=== PATIENT | female | born 1945 | race Caucasian/White ===

== ENCOUNTER 2016-09-24 16:20 | Emergency (ER) | payer MEDICARE, OTHER ==
[2015-12-25 14:05] VITALS: BMI 39.5
[~2016-09-24 16:20] MED LIST: ACETAMINOPHEN325 MG NG; ARICEPT5 MG PO; ASPIRIN 81 MG E81 MG PO; BACTRIM DS TABL1 TAB PO; CELEXA20 MG PO; DEPAKOTE ER250 MG; DITROPAN X10 MG/BOTT PO; DULCOLAX10 MG/SUPP RC; GLUCAGEN1 MG/VIAL IM; GLUCAGEN1 MG/VIAL SC; GLUCOTROL XL 1010 MG PO; HUMALOG 30100 UNITS/ SC; LANTUS SOL100 UNIT/1; LASIX20 MG PO; LASIX40 MG PO; LOTENSIN20 MG PO; LOVENOX30 MG/0.3 SQ; METAMUCIL FIB1 WAFER PO; METAMUCIL PACKE1 PKT PO; MIRALAX17 GM PO; NORVASC10 MG PO; PLAVIX75 MG PO; PRAVACHOL40 MG PO; PREVPAC PA1 COMB.PKG PO; PRINIVIL10 MG PO; PROTONIX40 MG PO; SYNTHROID100 MCG PO
[2016-09-24 17:34] LABS: BASOPHILS 0.3 % (0.0-2.0); EOSINOPHILS 1.5 % (0-7); HEMATOCRIT 33.4 % (36.0-48.0); HEMOGLOBIN 10.4 g/dL (12-16); IMMATURE GRANULOCYTES 0.2 % (0-5); LYMPHOCYTES 41.3 % (15-50); MCH 29.4 pg (26.0-34.0); MCHC 31.1 g/dL (31.0-37.0); MCV 94.4 fL (80.0-100.0); MEAN PLATELET VOLUME 10.8 fL (7.4-10.4); MONOCYTES 8.7 % (2-11); PLATELET COUNT 230 10x3/uL (130-400); RBC 3.54 10x6/uL (4.00-5.40); WBC 10.3 10x3/uL (4.8-10.8)
[2016-09-24 18:00] LABS: ALBUMIN 3.6 g/dL (3.4-5.0); ANION GAP 17.9 mmol/L (8-16); BILIRUBIN - TOTAL 0.19 mg/dL (0.2-1.3); CALCIUM 8.8 mg/dL (8.5-10.1); CARBON DIOXIDE 24.7 mmol/L (21.0-32.0); CREATININE - SERUM 3.6 mg/dL (0.6-1.3); POTASSIUM - SERUM 3.6 mmol/L (3.5-5.1); PROTEIN - SERUM 8.2 g/dL (6.4-8.2)
== END 2016-09-24 19:06 | disposition left against medical advice (07) ==
LOC: D.ER 16:20
PROVIDERS: Emergency Medicine
DX: R60.0 Localized edema (principal)

== ENCOUNTER 2017-02-18 16:07 | Emergency (ER) | payer MEDICARE, OTHER ==
[2015-12-25 14:05] VITALS: BMI 39.5
[2017-02-18 17:05] LABS: BASOPHILS 0.2 % (0-2); EOSINOPHILS 2.1 % (0-7); HEMATOCRIT 34.9 % (36.0-48.0); HEMOGLOBIN 11.3 g/dL (12-16); IMMATURE GRANULOCYTES 0.4 % (0-5); LYMPHOCYTES 39.3 % (15-50); MCH 30.9 pg (26.0-34.0); MCHC 32.4 g/dL (31.0-37.0); MCV 95.4 fL (80.0-100.0); MEAN PLATELET VOLUME 10.7 fL (7.4-10.4); PLATELET COUNT 231 10x3/uL (130-400); RBC 3.66 10x6/uL (4.00-5.40); RDW 14.1 % (11.5-14.5); WBC 9.9 10x3/uL (4.8-10.8)
[2017-02-18 17:06] LABS: APPEARANCE CLEAR (CLEAR); BACTERIA FEW /hpf (NONE SEEN); BILIRUBIN NEGATIVE (NEGATIVE); COLOR STRAW (YELLOW); EPITHELIAL CELLS 0-5 /hpf (0-5); GLUCOSE 250 mg/dL (NEGATIVE); KETONE NEGATIVE (NEGATIVE); LEUKOCYTE ESTERASE NEGATIVE (NEGATIVE); NITRITE NEGATIVE (NEGATIVE); PROTEIN 2+ mg/dL (NEGATIVE); RED CELLS - URINE RARE /hpf (0-5); UROBILINOGEN NORMAL (NORMAL); WHITE CELLS - URINE 0-5 /hpf (0-5)
[2017-02-18 17:27] LABS: ALBUMIN 3.4 g/dL (3.4-5.0); ALKALINE PHOSPHATASE 97 U/L (46-116); ALT (SGPT) 17 U/L (10-68); BILIRUBIN - TOTAL 0.18 mg/dL (0.2-1.3); CALC OSMOLALITY 287 mosm/kg (275-300); CALCIUM 8.9 mg/dL (8.5-10.1); CARBON DIOXIDE 24.2 mmol/L (21.0-32.0); CHLORIDE - SERUM 103 mmol/L (98-107); CREATININE - SERUM 4.1 mg/dL (0.6-1.3); GLUCOSE 163 mg/dL (74-106); POTASSIUM - SERUM 3.7 mmol/L (3.5-5.1); SODIUM 137 mmol/L (136-145); UREA NITROGEN 40 mg/dL (7-18); eGFR NON AFRICAN AMERICAN 11 mL/min (90-120)
[2017-02-18 17:30] LABS: CREATINE KINASE 66 UL (21-215); PRO BNP 1980 pg/mL (0-125); TROPONIN-I < 0.017 ng/mL (0.000-0.060)
== END 2017-02-18 18:40 | disposition home or self-care (01) ==
LOC: D.ER 16:07
PROVIDERS: Emergency Medicine
DX: J06.9 Acute upper respiratory infection, unspecified (principal); R05 Cough; G30.9 Alzheimer's disease, unspecified; F02.80 Dementia in other diseases classified elsewhere, unspecified severity, without behavioral disturbance, psychotic disturbance, mood disturbance, and anxiety

== ENCOUNTER 2017-07-20 19:26 | Observation (INO) | payer MEDICARE, OTHER ==
[~2017-07-20] VITALS: Ht 157.5 cm; Wt 97.9 kg
--- NOTE | ~2017-07-20 | OP ---
PATIENT NAME: TYLER BAY MEDICAL RECORD: [id number] :45 LOCATION:D.M2 D.2117 ADMISSION DATE:07/20/17 SURGEON: JAMAAL AVENDAÑO MD DATE OF OPERATION: 07/22/2017 DATE OF SERVICE: 07/22/2017 PROCEDURES: 1. PTCA stent left circumflex. 2. Left heart catheterization. 3. Selective coronary angiography. 4. Left ventriculogram. INDICATION: Angina and coronary artery disease. PROCEDURE IN DETAIL: After informed consent was obtained and after detailed explanation of risks, benefits as well as alternative therapies, the patient elected to proceed with angiogram and angioplasty. The right femoral area was prepped and draped in normal sterile fashion. The right femoral artery was cannulated via modified Seldinger technique with placement of a 6-Turkmen sheath. All catheters exchanged through this sheath. FINDINGS: Left ventriculogram was not performed secondary to dye conservation. SELECTIVE CORONARY ANGIOGRAPHY: 1. Left main has previously placed stent that is widely patent. 2. Left anterior descending has previously placed stents, these are widely patent. There is no disease elsewise throughout the LAD or its branches. 3. Left circumflex has previously placed stent. There is 90% to 95% stenosis proximally. 4. The right coronary has mild irregularities to moderate irregularities, but no flow-limiting stenosis. PTCA STENT OF THE LEFT CIRCUMFLEX: The stent used was a 4.0 x 8 mm Hans. Result was 0% residual stenosis. OVERALL IMPRESSION: Successful percutaneous transluminal coronary angioplasty stent of the left circumflex going from 90+ percent initial stenosis to 0% residual. TRANSINT:[id number] Voice Confirmation ID: [id number] DOCUMENT ID: [id number] JAMAAL AVENDAÑO MD at 0919 CC: [id number] DICTATION DATE: 07/22/17 1243 CRYPTOLOGIC TECHNICIAN TECHNICAL: 07/22/17 1346 ADM IN [place] [id number] [place] [id number]
--- NOTE | ~2017-07-20 | HEMODYNAMI ---
PATIENT:TYLER BAY MEDICAL RECORD: [id number] : 45 [id number] ADMISSION DATE: 07/20/17 Generatedon:07/22/201712:42 Patient name: TYLER BAY Patient #: [id number] SSN: : 1945 Date of study: 07/22/2017 Page: Of Hemodynamic Procedure Report Patient Data Patient Demographics Procedure consent was obtained First Name: TYLER Gender: Female Last Name: PHU : 1945 [facility] Initial: DEVI Age: 72 year(s) Patient #: [id number] Race: Additional ID: [id number] Contact details [address]: [address] [place] [address] rd State: [place] City: [place] Zip code: [address] Past Medical History Allergies Allergen Reaction Date Comments Reported Other allergy 07/27/2014 Codeine, Morphine Other allergy 07/22/2017 codeine, morpine Admission Admission Data Admission Date: 07/20/2017 Admission Time: 21:00 Room #: D.2117 Procedure Procedure Types Cath Procedure Diagnostic Procedure LHC Coronaries only PCI Procedure Coronary Stent Coronary Stent Initial Miscellaneous Procedures Moderate Sedation up to 30 minutes Procedure Description Procedure Date Procedure Date: 07/22/2017 Procedure Start Time: 12:23 Procedure End Time: 12:40 Procedure Staff Name Function Kei Flowers MD Performing Physician Kayla Teran RT Monitor Tricia Collins RT Scrub Vanessa Saunders RN Nurse Procedure Data Cath Procedure Fluoroscopy Diagnostic fluoroscopy Total fluoroscopy Time: 4.2 time: 4.2 min min Diagnostic fluoroscopy Total fluoroscopy dose: 614 dose: 614 mGy mGy Contrast Material Contrast Material Type Amount (ml) Isovue 300 43 Entry Location Entry Primary Successful Side Size Upsize Upsize Entry Closure Succes sful Closure Location (Fr) 1 (Fr) 2 (Fr) Remarks Device Remarks Femoral Right 5 Fr 6 Fr Exoseal artery Short Estimated blood loss: 5 ml Diagnostic catheters Device Type Used For End Catheter Placement MULTIPACK JL 4.0 5Fr Left Coronary catheter Angiography MULTIPACK 3DRC 5Fr Right Coronary catheter Angiography Procedure Complications No complications Procedure Medications Medication Administration Route Dosage Oxygen NC 2 l/min Lidocaine 2% added to field 20 Heparin Flush Bag added to field 2 bags (1000units/500ml NS) 0.9% NaCl I.V. 100 ml/hr Versed I.V. 1 mg Fentanyl I.V. 50 mcg Heparin Bolus I.V. 4000 units Hemodynamics Rest Heart Rate: 91 (bpm) Snapshots Pre Cath Intra NCS Post Cath Vital Signs Time Heart Resp SPO2 etCO2 NIBP (mmHg) Rhythm Pain Sedation Rate (ipm) (%) (mmHg) Status Level (bpm) 12:13:38 91 16 98 41.1 187/87(129) NSR 0 (11) 10(A) , No pain 12:18:02 86 15 93 29.1 159/80(130) NSR 0 (11) 10(A) , No pain 12:22:30 86 16 94 40.4 149/81(123) NSR 0 (11) 9(A) , No pain 12:27:56 82 16 95 33.6 144/69(105) NSR 0 (11) 9(A) , No pain 12:32:20 85 16 94 0 152/73(127) NSR 0 (11) 9(A) , No pain 12:36:46 88 15 95 26.9 157/76(123) NSR 0 (11) 10(A) , No pain 12:41:17 88 16 96 33.6 154/74(116) NSR 0 (11) 10(A) , No pain Medications Time Medication Route Dose Verified Delivered Reason Notes Effectiveness by by 12:11:51 Oxygen NC 2 Kei Bravoie used for l/min Lionel Saunders RN procedure 12:11:59 Lidocaine 2% added 20ml Kei Choudhury for local to vial Lionel Flowers MD anesthetic field 12:12:05 Heparin Flush added 2 Kei Kei used for Bag to bags Lionel Flowers MD procedure (1000units/500ml field NS) 12:12:14 0.9% NaCl I.V. 100 Kei Buffie Per physician ml/hr Lionel Saunders RN 12:17:34 Versed I.V. 1 mg Kei Buffie for sedation Lionel Saunders RN 12:17:41 Fentanyl I.V. 50 Kei Mendez for sedation mcg Lionel Saunders RN 12:28:56 Heparin Bolus I.V. 4000 Kei Mendez for verifi ed units Lionel Saunders RN anticoagulation with dr flowers Procedure Log Time Note 11:30:42 Vanessa Saunders RN sent for patient. Start room use. 11:30:43 Time tracking: Regular hours 11:30:47 Plan of Care:Hemodynamics will remain stable., Cardiac rhythm will remain stable., Comfort level will be maintained., Respiratory function will remain adequate., Patient/ family verbilizes understanding of procedure., Procedure tolerated without complication., Recovers from procedure without complications.. 11:38:16 Patient received from Pre/Post Procedure Room to CCL 2 Alert and oriented. Tansferred to table in Supine position. 11:38:17 Warm blankets applied, and isabel hugger turned on for patient comfort. 11:38:18 Correct patient and procedure confirmed by team. 11:38:20 Signed procedure consent form obtained from patient. 11:38:21 ECG and BP/O2 sat monitors applied to patient. 11:46:29 patient arrived with infiltrated IV in right hand 11:55:26 Full Disclosure recording started 11:55:31 H&P Date Dictated: 07/22/2017 New H&P dictated by physician.. 11:55:32 Pre-procedure instructions explained to patient. 11:55:33 Pre-op teaching completed and patient verbalized understanding. 11:55:37 Family in patients room. 11:55:38 Patient NPO since Midnight. 11:55:54 Patient allergic to Other allergycodeine, morpine 11:55:57 Is the patient allergic to Iodine/contrast media? No. 11:55:58 Was the patient premedicated? No 11:56:00 Is patient on blood thinner?Yes 11:56:03 ACC The patient was administered the following blood thiners within the last 24 hours: ACCPlavix 11:56:06 Patient diabetic? Yes. 11:56:07 If diabetic: On Metformin? No 11:56:11 Patient not . Patient is over age 55. 11:56:13 Previous problem with sedation/anesthesia? No ? 11:56:15 Snore? Yes 11:56:16 Sleep apnea? Yes 11:56:20 Deviated septum? No 11:56:21 Opens mouth fully? Yes 11:56:21 Sticks out tongue? Yes 11:56:25 Airway obstruction? Yes copd 11:56:31 Dentures? No ? 11:56:49 Patient pain scale 0/10 ?. 11:56:54 Lab results completed and on chart. 12:04:53 IV started by Vanessa Saunders RN inright hand with a 24 gauge IV catheter with 0.9% NaCl at KVO. 12:11:51 Oxygen 2 l/min NC was administered by Vanessa Saunders RN; used for procedure; 12:11:59 Lidocaine 2% 20ml vial added to field was administered by Kei Flowers MD; for local anesthetic; 12:12:05 Heparin Flush Bag (1000units/500ml NS) 2 bags added to field was administered by Kei Flowers MD; used for procedure; 12:12:14 0.9% NaCl 100 ml/hr I.V. was administered by Vanessa Saunders RN; Per physician; 12:12:17 Vital chart was started 12:13:14 Baseline sample Acquired. 12:13:18 Baseline sample Acquired. 12:13:26 Rhythm: sinus rhythm 12:13:39 Pre procedure: right dorsailis pedis pulse Doppler 12:13:42 Pre procedure: left dorsailis pedis pulse Doppler 12:13:47 Right groin area was prepped with chlora-prep and draped in sterile fashion 12:13:48 Alarms reviewed by R. N. 12:13:48 Sharps counted by scrub and verified by R.N. 12:13:50 Physician arrived 12:13:50 --------ALL STOP TIME OUT------ 12:13:50 Final Timeout: patient, procedure, and site verified with staff and physician. All members of the team are in agreement. 12:13:52 Right groin site verified by team. 12:13:55 Physical assessment completed. ASA score P 2 - A patient with mild systemic disease as per Kei Flowers MD. 12:17:34 Versed 1 mg I.V. was administered by Vanessa Saunders RN; for sedation; 12:17:41 Fentanyl 50 mcg I.V. was administered by Vanessa Saunders RN; for sedation; 12:20:08 Use device set Femoral Dx 12:20:09 ACIST Syringe (24371) opened to sterile field. 12:20:09 Bag Decanter (2002S) opened to sterile field. 12:20:10 Medline Cath Pack ([id number]) opened to sterile field. 12:20:10 SHEATH 5FR Southside (IWZ878) opened to sterile field. 12:20:11 DIAGNOSTIC WIRE .035 260cm J wire (549540) opened to sterile field. 12:20:12 ACIST Hand Control (07234) opened to sterile field. 12:20:12 ACIST Manifold (85644) opened to sterile field. 12:20:13 DIAGNOSTIC Multipack 5Fr catheter set (JX3146) opened to sterile field. 12:20:13 Tegaderm 4 x 4 (1626W) opened to sterile field. 12:20:43 Zero performed for pressure channel P1 12:20:48 Zero performed for pressure channel P1 12:20:55 Zero performed for pressure channel P1 12:21:03 Zero performed for pressure channel P1 12:22:36 Procedure started. 12:23:00 Local anesthetic to right femoral artery with Lidocaine 2% by Kei Flowers MD.INITIAL ACCESS ONLY 12:23:16 A 5 Fr sheath was inserted into the Right Femoral artery 12:24:02 A MULTIPACK JL 4.0 5Fr catheter was advanced over the wire and used for Left Coronary Angiography. 12:26:14 Catheter removed. 12:26:19 A MULTIPACK 3DRC 5Fr catheter was advanced over the wire and used for Right Coronary Angiography. 12:26:20 RCA angiography performed. 12:26:22 Injector settings: Ml/sec: 3, Volume: 6, 12:26:24 Catheter removed. 12:26:31 SHEATH 6FR [place]side (FTU882) opened to sterile field. 12:27:16 GUIDE 6FR EBU 4.5 catheter ([id number]) opened to sterile field. 12:27:44 guide damaged in package; 12:27:47 GUIDE 6FR EBU 4.5 catheter (AN3NIM46) opened to sterile field. 12:27:55 Sheath upsized to a 6 Fr Short. 12:28:09 6 Fr ebu 4.5 guide catheter was inserted over the wire 12:28:56 Heparin Bolus 4000 units I.V. was administered by Vanessa Saunders RN; for anticoagulation; verified with dr flowers 12:30:30 CHOICE PT Extra Support 182cm wire ([id number]) opened to sterile field. 12:30:31 CHOICE PT Extra Support 182cm wire ([id number]) opened to sterile field. 12:30:32 INFLATOR Merit BasixCompak (IL2570) opened to sterile field. 12:32:16 Two choice pt wires advanced down LAD and LCX 12:33:28 Inflation number: 1 A EUPHORA 4.0 x 15 Balloon ([id number]) was prepped and advanced across the Prox CX, then inflated to 13 WYATT for 0:10 (min:sec). 12:33:36 Inflation number: 2 The EUPHORA 4.0 x 15 Balloon ([id number]) was reinflated across the Prox CX, to 13 WYATT for 0:10 (min:sec). 12:34:00 Balloon removed over the wire. 12:35:49 Inflation Number: 3 A MICHELLE RX 4.0 x 08 stent ([id number]) was prepped and advanced across the Prox CX. The stent was deployed at 21 WYATT for 0:10 (min:sec). 12:36:26 Stent catheter was removed intact over wire. 12:36:27 Wire removed. 12:36:27 Guide catheter removed. 12:36:34 EXOSEAL 6Fr (EX600) opened to sterile field. 12:36:43 Sheath removed intact; hemostasis achieved with Exoseal to the Right Femoral artery. 12:36:49 Procedure ended.(Physican Out) 12:37:08 Fluoroscopy time 04.20 minutes. 12:37:13 Flurop Dose total: 614 12:37:13 Fluoroscopy dose: 614 mGy 12:38:01 Contrast amount:Isovue 300 43ml. 12:38:58 Sharps counted by scrub and verified by R.N. 12:39:01 Insertion/operative site no bleeding no hematoma. 12:39:04 Post-op/insertion site Right Femoral artery dressed using a 4 x 4 and Tegaderm. 12:39:06 Post right femoral artery:stable 12:39:08 Post Procedure Pulses reassessed and unchanged 12:39:11 Post procedure rhythm: unchanged. 12:39:13 Estimated blood loss: 5 ml 12:39:15 Post procedure instruction explained to patient.Patient verbalizes understanding. 12:39:15 Patient needs reinforcement of post procedure teaching. 12:39:34 Procedure type changed to Cath procedure, Diagnostic procedure, LHC, Coronaries only, PCI procedure, Coronary Stent, Coronary Stent Initial, Miscellaneous Procedures, Moderate Sedation up to 30 minutes 12:40:02 Procedure and supply charges have been captured, reviewed, submitted and are correct. 12:40:16 Procedure Complication : No complications 12:40:18 Vital chart was stopped 12:40:18 See physician's report for complete and final results. 12:40:22 Report given to Med II. 12:40:25 Patient transfered to Med II with Stretcher. 12:40:29 Procedure ended. 12:40:29 Full Disclosure recording stopped 12:40:46 ACC-PCI Only Patient was given prescriptions, or instructed by Kei Flowers MD to start/continue the following medications upon discharge: Plavix 12:40:48 End room use (Document Last) Intervention Summary Intervention Notes Time ActionType Lesion and Equipment Used Action# Pressure Duration Attributes 12:33:28 Inflate Prox CX EUPHORA 4.0 x 1 13 00:10 balloon 15 Balloon ([id number]) 12:33:36 Reinflate Prox CX EUPHORA 4.0 x 2 13 00:10 balloon 15 Balloon ([id number]) 12:35:49 Place stent Prox CX MICHELLE RX 4.0 x 3 21 00:10 08 stent ([id number]) Device Usage Item Name Manufacture Quantity Catalog Number Hospital Part Current M inimal Lot# / Charge Number Stock Stock Serial# Code ACIST Syringe Acist 1 69407 592700 912264 713754 2 0 (72834) Medical Systems Inc Bag Decanter Microtek 1 2001S 785031 66073 103165 5 () Medical Inc. Medline Cath Cardinal 1 [id number] 058293 50852 470062 5 OneRoom[employer] Health ([id number]) SHEATH 5FR Terumo 1 [id number] 286425 510210 526158 4 0 Southside (PWY149) DIAGNOSTIC St Keyur 1 795380 734281 812192 870049 3 0 WIRE .035 260cm J wire (072267) ACIST Hand Acist 1 70691 992657 220103 129023 5 Control Medical (37032) Systems Inc ACIST Manifold Acist 1 60305 856949 785837 788401 5 (43848) Medical Systems Inc DIAGNOSTIC Cardinal 1 NM7159 298425 07629 451675 3 0 Multipack 5Fr Health catheter set (FB4791) Tegaderm 4 x 4 3M 1 1626W 708548 479475 147654 5 (1626W) MULTIPACK JL Cardinal 1 431945 5 4.0 5Fr Health catheter MULTIPACK 3DRC Cardinal 1 039361 5 5Fr catheter Health SHEATH 6FR Terumo 1 FUQ613 078925 056041 188017 4 0 Southside (VGR873) GUIDE 6FR EBU Medtronic 2 [id number] 766812 40406 821180 0 4.5 catheter ([id number]) CHOICE PT [place] 2 [id number] 273165 932195 752782 5 Extra Support Scientific 182cm wire ([id number]) INFLATOR Merit Merit 1 TA4595 438574 697491 546355 1 5 Recovr Medical (FX4490) EUPHORA 4.0 x Medtronic 1 [id number] 454586 621602 762856 5 [id number] 15 Balloon ([id number]) MICHELLE RX 4.0 x Medtronic 1 [id number] 951369 3190520 764434 5 [id number] 08 stent ([id number]) EXOSEAL 6Fr Cardinal 1 EX600 925070 703394 134225 1 0 (EX600) Health Signature Audit [place] Stage Time Signature Unsigned Intra-Procedure 07/22/2017 Kayla Teran 12:42:24 PM RT(R) Signatures Monitor : Kayla Teran RT Signature : Date : Time : [facility] [address] [place] [address]
[~2017-07-20 19:26] MED LIST changes: -ASPIRIN 81 MG E81 MG PO; +BAYER CHEWABLE81 MG PO
[2017-07-20 19:58] LABS: BASOPHILS 0.1 % (0-2); EOSINOPHILS 0.8 % (0-7); HEMATOCRIT 36.7 % (36.0-48.0); HEMOGLOBIN 12.1 g/dL (12-16); IMMATURE GRANULOCYTES 0.4 % (0-5); LYMPHOCYTES 29.3 % (15-50); MCH 30.9 pg (26.0-34.0); MCV 93.9 fL (80.0-100.0); MEAN PLATELET VOLUME 10.7 fL (7.4-10.4); MONOCYTES 7.4 % (2-11); PLATELET COUNT 223 10x3/uL (130-400); RBC 3.91 10x6/uL (4.00-5.40); WBC 13.7 10x3/uL (4.8-10.8)
[2017-07-20 20:12] LABS: ALBUMIN 3.4 g/dL (3.4-5.0); ALKALINE PHOSPHATASE 107 U/L (46-116); ALT (SGPT) 18 U/L (10-68); CALC OSMOLALITY 294 mosm/kg (275-300); CALCIUM 8.4 mg/dL (8.5-10.1); CARBON DIOXIDE 20.6 mmol/L (21.0-32.0); CHLORIDE - SERUM 105 mmol/L (98-107); CREATININE - SERUM 3.9 mg/dL (0.6-1.3); GLUCOSE 116 mg/dL (74-106); POTASSIUM - SERUM 3.4 mmol/L (3.5-5.1); SODIUM 140 mmol/L (136-145); UREA NITROGEN 55 mg/dL (7-18); eGFR NON AFRICAN AMERICAN 12 mL/min (90-120)
[2017-07-20 20:22] LABS: CHOL - HDL RATIO 1.9 ratio (2.3-4.1); CHOLESTEROL, TOTAL 156 mg/dL (0-200); CKMB 2.2 U/L (0.0-3.6); CREATINE KINASE 52 UL (21-215); HDL CHOLESTEROL 81 mg/dL (32-96); LDL CHOLESTEROL 66 mg/dL (0-100); LDL-HDL RATIO 0.8 ratio (1.5-3.5); TRIGLYCERIDE 46 mg/dL (30-200); TROPONIN-I 0.042 ng/mL (0.000-0.060)
[2017-07-20] MEDS ORDERED: LANTUS SOL100 UNIT/1 SC (21:54)
[2017-07-20] MEDS ORDERED: FERROUS SULFAT325 MG PO (21:57)
[2017-07-20] MEDS ORDERED: VITAMIN D31000 UNI2 PO (21:59)
[2017-07-20] MEDS ORDERED: REQUIP0.5 MG PO (22:00)
[2017-07-20] MEDS ORDERED: LASIX20 MG PO (22:01)
[2017-07-20] MEDS ORDERED: AMOXICILLIN875 MG PO (22:02)
[2017-07-20] MEDS ORDERED: LEXAPRO20 MG PO (22:03)
[2017-07-20] MEDS ORDERED: ROCALTROL0.25 MCG PO (22:04)
[2017-07-21] VITALS: BP 186/86
[2017-07-21 03:29] VITALS: BP 194/73; BMI 40.1
[2017-07-21 07:00] VITALS: BP 180/79
[2017-07-21 08:35] LABS: ANION GAP 20.4 mmol/L (8-16); CALCIUM 8.5 mg/dL (8.5-10.1); CARBON DIOXIDE 18.4 mmol/L (21.0-32.0); CREATININE - SERUM 4.1 mg/dL (0.6-1.3); POTASSIUM - SERUM 3.8 mmol/L (3.5-5.1)
[2017-07-21 08:37] LABS: BASOPHILS 0.1 % (0-2); EOSINOPHILS 0.8 % (0-7); HEMATOCRIT 33.8 % (36.0-48.0); HEMOGLOBIN 11.2 g/dL (12-16); IMMATURE GRANULOCYTES 0.3 % (0-5); LYMPHOCYTES 30.3 % (15-50); MCH 31.2 pg (26.0-34.0); MCHC 33.1 g/dL (31.0-37.0); MCV 94.2 fL (80.0-100.0); MEAN PLATELET VOLUME 11.5 fL (7.4-10.4); NEUTROPHILS 62.5 % (40-80); PLATELET COUNT 193 10x3/uL (130-400); RBC 3.59 10x6/uL (4.00-5.40); WBC 11.2 10x3/uL (4.8-10.8)
[2017-07-21 11:08] VITALS: Ht 157.5 cm; Wt 97.9 kg
[2017-07-21 12:41] VITALS: BP 174/72
[2017-07-21 17:02] VITALS: BP 156/81
[2017-07-21 22:06] VITALS: BP 176/83
[2017-07-22 05:05] VITALS: BP 196/83
[2017-07-22 09:37] VITALS: BP 167/78
[2017-07-22 11:41] VITALS: BP 140/76
[2017-07-22 16:01] VITALS: BP 139/77
[2017-07-22 20:00] VITALS: BP 161/61
[2017-07-23] VITALS: BP 136/59
[2017-07-23 04:00] VITALS: BP 172/64
[2017-07-23 05:38] LABS: ANION GAP 16.9 mmol/L (8-16); CALCIUM 7.7 mg/dL (8.5-10.1); CREATININE - SERUM 3.8 mg/dL (0.6-1.3); POTASSIUM - SERUM 3.9 mmol/L (3.5-5.1)
[2017-07-23 07:48] VITALS: BP 144/66
[2017-07-23 10:52] VITALS: BP 140/68
[2017-07-23 21:53] VITALS: BP 146/51
[2017-07-24 05:40] VITALS: BP 165/57
[2017-07-24 07:55] VITALS: BP 160/63
== END 2017-07-24 10:38 | disposition home or self-care (01) ==
LOC: D.ER 19:26 → OBSVTIME 21:00 → D.M2 21:00
PROVIDERS: Emergency Medicine; Internal Medicine Interventional Cardiology
DX: I25.110 Atherosclerotic heart disease of native coronary artery with unstable angina pectoris (principal); Z95.5 Presence of coronary angioplasty implant and graft; E11.22 Type 2 diabetes mellitus with diabetic chronic kidney disease; I12.9 Hypertensive chronic kidney disease with stage 1 through stage 4 chronic kidney disease, or unspecified chronic kidney disease; N18.4 Chronic kidney disease, stage 4 (severe); E78.5 Hyperlipidemia, unspecified
CPT/HCPCS: 93458; C9600

== ENCOUNTER → 2017-11-19 16:39 | Outpatient (CLI) | payer MEDICARE, OTHER ==
[2017-07-26 16:14] VITALS: BMI 38.5
[~2017-11-19 16:39] MED LIST changes: +AMOXICILLIN875 MG PO; +BROVANA15 MCG/2 M INH; +FERROUS SULFAT325 MG PO; +IPRAT-ALBUT 0.5-3 ML UPD; +LANTUS SOL100 UNIT/1 SC; +LEXAPRO20 MG PO; +Levaquin PO; +MUCINEX600 MG PO; +PULMICORT0.5 MG/21 UPD; +REQUIP0.5 MG PO; +ROCALTROL0.25 MCG PO; +TESSALON PERLE100 MG PO; +VITAMIN D31000 UNI2 PO
== END | disposition home or self-care (01) ==
LOC: D.MAMMO 15:45
DX: Z12.31 Encounter for screening mammogram for malignant neoplasm of breast (principal)

== ENCOUNTER 2017-12-15 08:00 | Outpatient (CLI) | payer MEDICARE, OTHER ==
[2017-07-26 16:14] VITALS: BMI 38.5
== END 2017-12-15 09:00 | disposition home or self-care (01) ==
LOC: D.MAMMO 08:00
DX: R92.8 Other abnormal and inconclusive findings on diagnostic imaging of breast (principal)

== ENCOUNTER 2018-01-03 08:54 | Outpatient (CLI) | payer MEDICARE, OTHER ==
[~2018-01-03] VITALS: Ht 158.8 cm; Wt 94.5 kg
--- NOTE | ~2018-01-03 | OP ---
PATIENT NAME: TYLER BAY MEDICAL RECORD: [id number] :45 LOCATION:D.CAT ADMISSION DATE: SURGEON: JAMAAL AVENDAÑO MD DATE OF OPERATION: 01/03/2018 PROCEDURES: 1. PTCA stent left circumflex. 2. Left heart catheterization. 3. Selective coronary angiography. 4. Left ventriculogram. 5. Intravascular ultrasound. 6. Bilateral selective renal angiography. INDICATION: Angina and coronary artery disease and renal insufficiency. PROCEDURE IN DETAIL: After informed consent was obtained and after a detailed description of the risks, benefits as well as alternative therapies, the patient elected to proceed with angiogram and angioplasty. The right femoral area was prepped and draped in normal sterile fashion. Right femoral artery was cannulated via modified Seldinger technique with placement of 6-Welsh sheath. All catheters exchanged through this sheath. FINDINGS: The left ventriculogram was performed in standard 30-degree PATEL view, reveals good cardiac wall motion, ejection fraction 50%. SELECTIVE CORONARY ANGIOGRAPHY: 1. Left main showed no significant angiographic disease. 2. Left anterior descending has previously placed stents, these are widely patent with no significant restenosis. No disease elsewise at the LAD or its branches. 3. The left circumflex has previously placed stents, these are widely patent; however, after the previously placed stents in the mid vessel is greater than 80% stenosis confirmed by intravascular ultrasound. 4. Right coronary artery has mild irregularities, but no flow-limiting stenosis. 5. 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 No renal stenosis elsewise. 6. Left renal artery is a solitary artery off the aorta that has a previously placed stent with no in-stent restenosis. No disease elsewise. PTCA STENT OF THE LEFT CIRCUMFLEX: The stent used was a 3.0 x 22 mm Hans. Result was 0% residual stenosis. OVERALL IMPRESSION: Successful percutaneous transluminal coronary angioplasty stent of the left circumflex going from 80% initial stenosis to 0% residual. TRANSINT:[id number] Voice Confirmation ID: [id number] DOCUMENT ID: [id number] OPERATIVE REPORT [id number] TYLER BAY JAMAAL AVENDAÑO MD at 1230 CC: [id number] DICTATION DATE: 01/03/18 1130 MAILROOM ASSOCIATE: 01/03/18 1148 DEP CLI 01/03/18 [facility] [address] [place] [address]
--- NOTE | ~2018-01-03 | HEMODYNAMI ---
PATIENT:TYLER BAY MEDICAL RECORD: [id number] : 45 LOCATION:[facility] ADMISSION DATE: 01/03/18 Generatedon:01/03/201811:30 Patient name: TYLER BAY Patient #: [id number] SSN: : 1945 Date of study: 01/03/2018 Page: Of Hemodynamic Procedure Report Patient Data Patient Demographics Procedure consent was obtained First Name: TYLER Gender: Female Last Name: PHU : 1945 [facility] Initial: DEVI Age: 73 year(s) Patient #: [id number] Race: Additional ID: [id number] Contact details [address]: [address] [place] [address] rd State: [place] City: [place] Zip code: [address] Past Medical History Allergies Allergen Reaction Date Comments Reported Other allergy 07/27/2014 Codeine, Morphine Other allergy 07/22/2017 codeine, morpine Codeine 01/03/2018 Morphine 01/03/2018 Admission Admission Data Admission Date: 01/03/2018 Admission Time: 8:54 Insurance Payor: Medicare Height (in.): 62 BSA: 1.94 (m2) Height (cm.): 157.48 BMI: 38.04 (kg/m2) Weight (lbs.): 208 Weight (kg.): 94.35 Lab Results Lab Result Date: 01/03/2018 Lab Result Time: 0:00 Biochemistry Name Units Result Min Max BUN mg/dl 37 --(----)-* 7 18 Creatinine mg/dl 3.7 --(----)-* 0.6 1.3 CBC Name Units Result Min Max Hemoglobin g/dl 11.2 *-(----)-- 13.5 17.5 Procedure Procedure Types Cath Procedure Diagnostic Procedure [facility] w/Coronaries FFR/IVUS Intra-Coronary IVUS Initial PCI Procedure Coronary Stent Coronary Stent Initial Procedure Description Procedure Date Procedure Date: 01/03/2018 Procedure Start Time: 11:05 Procedure End Time: 11:30 Procedure Staff Name Function Kei Flowers MD Performing Physician Nacho Ramos RT Monitor Carlos Nath RN Nurse Kayla Teran RT Scrub Procedure Data Cath Procedure Fluoroscopy Diagnostic fluoroscopy Total fluoroscopy Time: 4.4 time: 4.4 min min Diagnostic fluoroscopy Total fluoroscopy dose: 723 dose: 723 mGy mGy Contrast Material Contrast Material Type Amount (ml) Isovue 300 77 Entry Location Entry Primary Successful Side Size Upsize Upsize Entry Closure Succes sful Closure Location (Fr) 1 (Fr) 2 (Fr) Remarks Device Remarks Femoral Right 5 Fr Exoseal artery Estimated blood loss: 10 ml Diagnostic catheters Device Type Used For End Catheter Placement MULTIPACK Pigtail 5 Fr Procedure catheter MULTIPACK JL 4.0 5Fr Procedure catheter MULTIPACK 3DRC 5Fr Procedure catheter Procedure Medications Medication Administration Route Dosage Oxygen NC 2 l/min Heparin Flush Bag added to field 2 bags (1000units/500ml NS) 0.9% NaCl I.V. 100 ml/hr Fentanyl I.V. 50 mcg Versed I.V. 1 mg Fentanyl I.V. 50 mcg Versed I.V. 1 mg Heparin Bolus I.V. 4000 units Hemodynamics Rest BSA: 1.94 (m2) HGB: 11.2 (g/dl) O2 Consumption: Estimated: 182.52 (ml/min) O2 Co nsumption indexed: Estimated:94.08 (ml/min/m) Heart Rate: 77 (bpm) Pressure Samples Time Site Value (mmHg) Purpose Heart Use Rate(bpm) 11:10 LV 101/14,20 Snapshot 81 Snapshots Pre Cath Intra NCS Post Cath Vital Signs Time Heart Resp SPO2 etCO2 NIBP (mmHg) Rhythm Pain Sedation Rate (ipm) (%) (mmHg) Status Level (bpm) 10:55:44 78 16 100 0 193/89(140) NSR 0 (11) 10(A) , No pain 11:00:33 80 17 98 0 196/94(149) NSR 0 (11) 10(A) , No pain 11:05:16 75 17 95 0 158/73(114) NSR 0 (11) 10(A) , No pain 11:09:26 78 16 90 0 109/96(107) NSR 0 (11) 9(A) , No pain 11:13:36 81 16 88 0 117/99(110) NSR 0 (11) 9(A) , No pain 11:17:48 83 17 90 0 131/100(112) NSR 0 (11) 9(A) , No pain 11:22:06 85 17 91 0 123/80(99) NSR 0 (11) 9(A) , No pain 11:26:26 85 16 89 0 128/84(108) NSR 0 (11) 9(A) , No pain 11:29:01 92 16 98 0 144/81(119) NSR 0 (11) 9(A) , No pain Medications Time Medication Route Dose Verified Delivered Reason Notes Effectiveness by by 10:55:01 Oxygen NC 2 Kei Gonzalez Per physician l/min Lionel Nath RN 10:59:18 Heparin Flush added 2 Kei Gonzalez used for Bag to bags Lionel Nath RN procedure (1000units/500ml field NS) 10:59:27 0.9% NaCl I.V. 100 Kei Gonzalez Per physician ml/hr Lionel Nath RN 11:04:33 Fentanyl I.V. 50 Kei Gonzalez for sedation mcg Lionel Nath RN 11:04:39 Versed I.V. 1 mg Kei Gonzalez for sedation Lionel Nath RN 11:08:36 Fentanyl I.V. 50 Kei Gonzalez for sedation mcg Lionel Nath RN 11:08:40 Versed I.V. 1 mg Kei Gonzalez for sedation Lionel Nath RN 11:19:18 Heparin Bolus I.V. 4000 Kei Gonzalez for units Lionel Nath RN anticoagulation Procedure Log Time Note 10:30:56 Carlos Nath RN sent for patient. Start room use. 10:39:33 Diagnostic Cath Status : Elective 10:39:58 Time tracking: Regular hours (M-F 7:00 - 5:00) 10:40:02 Plan of Care:Hemodynamics will remain stable., Cardiac rhythm will remain stable., Comfort level will be maintained., Respiratory function will remain adequate., Patient/ family verbilizes understanding of procedure., Procedure tolerated without complication., Recovers from procedure without complications.. 10:40:48 H&P Date Dictated: 12/09/2017 Within 30 days and on chart., H&P Addendum completed by physician on day of procedure. (MUST COMPLETE FOR ALL OUTPATIENTS). 10:48:41 Patient received from Pre/Post Procedure Room to CCL 3 Alert and oriented. Tansferred to table in Supine position. 10:48:42 Warm blankets applied, and isabel hugger turned on for patient comfort. 10:48:43 Correct patient and procedure confirmed by team. 10:48:45 Signed procedure consent form obtained from patient. 10:48:46 ECG and BP/O2 sat monitors applied to patient. 10:48:47 Vital chart was started 10:49:48 Patient allergic to Codeine 10:49:53 Patient allergic to Morphine 10:49:57 Is patient on blood thinner?Yes 10:50:00 ACC The patient was administered the following blood thiners within the last 24 hours: ACCPlavix 10:50:03 Patient diabetic? Yes. 10:50:04 If diabetic: On Metformin? No 10:50:17 INSULIN DEPENDANT 10:50:23 ----Pre-sedation anethsthesia assessment.---- 10:50:27 Previous problem with sedation/anesthesia? No ? 10:50:29 Snore? Yes 10:50:30 Sleep apnea? Yes 10:50:32 Deviated septum? No 10:50:32 Opens mouth fully? Yes 10:50:33 Sticks out tongue? Yes 10:50:47 Airway obstruction? Yes COPD 10:50:50 Dentures? No ? 10:52:56 Vital chart was stopped 10:52:57 Vital chart was started 10:55:01 Oxygen 2 l/min NC was administered by Carlos Nath RN; Per physician; 10:57:44 Baseline sample Acquired. 10:57:52 Baseline sample Acquired. 10:57:57 Rhythm: sinus rhythm 10:58:12 Pre-procedure instructions explained to patient. 10:58:15 Full Disclosure recording started 10:58:17 Pre-op teaching completed and patient verbalized understanding. 10:58:25 Family in waiting room. 10:58:27 Patient NPO since Midnight. 10:58:30 Is the patient allergic to Iodine/contrast media? No. 10:58:36 Patient not . Patient is over age 55. 10:59:15 Patient Height : 62 inches 10:59:18 Heparin Flush Bag (1000units/500ml NS) 2 bags added to field was administered by Carlos Nath RN; used for procedure; 10:59:24 Patient Weight : 208 lbs 10:59:27 0.9% NaCl 100 ml/hr I.V. was administered by Carlos Nath RN; Per physician; 10:59:31 Insurance Payor : Medicare 10:59:50 Pre procedure: right dorsailis pedis pulse 1+ Palpable, but thready & weak; easily obliterated 10:59:53 Patient pain scale 0/10 ?. 11:00:04 IV patent on arrival in left antecubital with 0.9% NaCl at [facility]. 11::21 Lab Result : BUN 37 mg/dl 11:: Lab Result : Creatinine 3.7 mg/dl 11::21 Lab Result : Hemoglobin 11.2 g/dl 11::25 Lab results completed and on chart. 11:01:57 Right groin area was prepped with chlora-prep and draped in sterile fashion 11:02:12 Alarms reviewed by R. N. 11:02:13 Sharps counted by scrub and verified by R.N. 11:03:10 Physician arrived 11:03:10 --------ALL STOP TIME OUT------ 11:03:11 Final Timeout: patient, procedure, and site verified with staff and physician. All members of the team are in agreement. 11:03:13 Right groin site verified by team. 11:03:17 Physical assessment completed. ASA score P 2 - A patient with mild systemic disease as per Kei Flowers MD. 11:03:25 Sedation plan: IV Moderate Sedation Medication:Versed, Fentanyl 11:04:33 Fentanyl 50 mcg I.V. was administered by Carlos Nath RN; for sedation; 11:04:39 Versed 1 mg I.V. was administered by Carlos Nath RN; for sedation; 11:04:42 Use device set Femoral Dx 11:04:43 ACIST Syringe (12376) opened to sterile field. 11:04:44 Bag Decanter () opened to sterile field. 11:04:46 Medline Cath Pack ([id number]) opened to sterile field. 11:04:47 DIAGNOSTIC WIRE .035 260cm J wire ([id number]) opened to sterile field. 11:04:48 ACIST Hand Control (25055) opened to sterile field. 11:04:49 ACIST Manifold (02550) opened to sterile field. 11:04:50 DIAGNOSTIC Multipack 5Fr catheter set (PR4983) opened to sterile field. 11:04:53 Tegaderm 4 x 4 (1626W) opened to sterile field. 11:04:58 SHEATH Prelude 5Fr 0.035 (QFG-3H-37-035) opened to sterile field. 11:05:04 Procedure started. 11:05:09 Local anesthetic to right femoral artery with Lidocaine 2% by Kei Flowers MD.INITIAL ACCESS ONLY 11:06:34 A 5 Fr sheath was inserted into the Right Femoral artery 11:08:36 Fentanyl 50 mcg I.V. was administered by Carlos Nath RN; for sedation; 11:08:40 Versed 1 mg I.V. was administered by Carlos Nath RN; for sedation; 11:09:52 Zero performed for pressure channel P1 11:09:56 Zero performed for pressure channel P1 11:10:27 A MULTIPACK Pigtail 5 Fr catheter was advanced over the wire and used for Procedure. 11:10:50 LV hemodynamics recorded. 11:10:52 LV gram done using PATEL 11:11:00 EF : 50 % 11:11:09 Catheter removed. 11:11:20 A MULTIPACK JL 4.0 5Fr catheter was advanced over the wire and used for Procedure. 11:11:52 LCA angiography performed. 11:12:53 Catheter removed. 11:13:03 A MULTIPACK 3DRC 5Fr catheter was advanced over the wire and used for Procedure. 11:13:27 CHOICE PT Extra Support 182cm wire ([id number]) opened to sterile field. 11:13:29 INFLATOR Merit BasixCompak (ZG7918) opened to sterile field. 11:13:41 RCA angiography performed. 11:14:19 Right renal angiography performed. 11:15:14 Left renal angiography performed. 11:15:23 Catheter removed. 11:15:45 Procedure type changed to Cath procedure, Diagnostic procedure, LHC, LHC w/Coronaries, FFR/IVUS, Intra-Coronary IVUS Initial, PCI procedure, Coronary Stent, Coronary Stent Initial 11:16:48 Proceeding to intervention. 11:17:40 SHEATH Prelude 6Fr 0.035 (FOU-4T-89-035) opened to sterile field. 11:18:25 GUIDE 6FR EBU 4.5 catheter ([id number]) opened to sterile field. 11:18:52 CIRCUMFLEX 11:19:09 6 Fr EBU 4.5 guide catheter was inserted over the wire 11:19:14 CHOICE wire advanced. 11:19:17 Wire advanced across lesion. 11:19:18 Heparin Bolus 4000 units I.V. was administered by Carlos Nath RN; for anticoagulation; 11:19:22 FFR/IVUS 11:21:26 IVUS catheter advanced over wire. 11:21:29 IVUS pass to Circ lesion performed. 11:21:32 IVUS catheter removed over wire. 11:22:25 Place stent Inflation Number: 1 A MICHELLE RX 3.0 x 22 stent ([id number]) was prepped and advanced across the Mid CX. The stent was deployed at 17 WYATT for 0:10 (min:sec). 11:23:58 Stent catheter was removed intact over wire. 11:23:59 Wire removed. 11:24:00 Guide catheter removed. 11:27:18 EXOSEAL 6Fr (EX600) opened to sterile field. 11:27:32 Sheath removed intact; hemostasis achieved with Exoseal to the Right Femoral artery. 11:27:35 Procedure ended.(Physican Out) 11:27:46 Fluoroscopy time 04.40 minutes. 11:27:57 Flurop Dose total: 723 11:27:57 Fluoroscopy dose: 723 mGy 11:28:06 Contrast amount:Isovue 300 77ml. 11:28:16 Sharps counted by scrub and verified by R.N. 11:28:28 Insertion/operative site no bleeding no hematoma. 11:28:33 Post-op/insertion site Right Femoral artery dressed using a 4 x 4 and Tegaderm. 11:28:42 Post right femoral artery:stable 11:29:42 Post Procedure Pulses reassessed and unchanged 11:29:47 Post-procedure physical assessment completed. ASA score P 2 - A patient with mild systemic disease as per Kei Flowers MD. 11:29:51 Post procedure rhythm: sinus rhythm 11:29:56 Estimated blood loss: 10 ml 11:29:58 Post procedure instruction explained to patient.Patient verbalizes understanding. 11:29:59 Patient needs reinforcement of post procedure teaching. 11:30:00 Procedure and supply charges have been captured, reviewed, submitted and are correct. 11:30:03 See physician's report for complete and final results. 11:30:05 Report given to Pre/Post Procedure Room. 11:30:10 Procedure ended. 11:30:10 Full Disclosure recording stopped 11:30:16 Patient transfered to Pre/Post Procedure Room with Stretcher. 11:30:18 End room use (Document Last) 11:30:41 Vital chart was stopped Intervention Summary Intervention Notes Time ActionType Lesion and Equipment Used Action# Pressure Duration Attributes 11:22:25 Place stent Mid CX MICHELLE RX 3.0 x 1 17 00:10 22 stent ([id number]) Device Usage Item Name Manufacture Quantity Catalog Number Hospital Part Current Minimal Lot# / Charge Number Stock Stock Serial# Code ACIST Syringe Acist 1 59937 071452 455945 820943 20 (64869) [employer] Bag Decanter Microtek 1 2001S 440808 11032 545553 5 (2001S) Medical Inc. Medline Cath Cardinal 1 [id number] 897324 51933 432669 5 Pack Health ([id number]) DIAGNOSTIC WIRE St Keyur 1 230675 429519 857027 848144 30 .035 260cm J wire (700107) ACIST Hand Acist 1 49713 072502 885206 584075 5 Control (25287) [employer] ACIST Manifold Acist 1 46171 865346 270014 365255 5 (22806) [employer] Inc DIAGNOSTIC Cardinal 1 [id number] 929187 84442 082616 30 Multipack 5Fr Health catheter set (GL1854) Tegaderm 4 x 4 3M 1 1626W 192867 387242 259777 5 (1626W) SHEATH Prelude Merit 1 GTZ-3R-93-035 639981 074994 240836 5 5Fr 0.035 Medical (HGA-1Z-37-035) MULTIPACK Cardinal 1 [id number] 5 Pigtail 5 Fr Health catheter MULTIPACK JL Cardinal 1 [id number] 5 4.0 5Fr Health catheter MULTIPACK 3DRC Cardinal 1 [id number] 5 5Fr catheter Health CHOICE PT Extra Maria Stein 1 [id number] 996518 114781 643488 5 Support 182cm Scientific wire ([id number]) INFLATOR Merit Merit 1 [id number] 301709 705376 466405 15 BasixCompak Medical (DQ0122) SHEATH Prelude Merit 1 [id number]-[id number] 666254 8205827 727467 5 6Fr 0.035 Medical (MWO-1X-41-035) GUIDE 6FR EBU Medtronic 1 [id number] 093155 56436 427442 0 4.5 catheter ([id number]) MICHELLE RX 3.0 x Medtronic 1 [id number] 314635 8024120 980183 5 [id number] 22 stent ([id number]) EXOSEAL 6Fr Cardinal 1 EX600 320117 824097 240909 10 (EX600) Health Signature Audit [place] Stage Time Signature Unsigned Intra-Procedure 01/03/2018 Nacho Ramos 11:30:37 AM RT(R) (CV) Signatures Monitor : Nacho Ramos RT Signature : Date : Time : [address] [address]
[2018-01-03 09:41] VITALS: BP 199/80; Ht 158.8 cm; Wt 94.5 kg
[2018-01-03 09:48] LABS: BASOPHILS 0.1 % (0-2); EOSINOPHILS 1.2 % (0-7); HEMATOCRIT 34.9 % (36.0-48.0); HEMOGLOBIN 11.2 g/dL (12-16); IMMATURE GRANULOCYTES 0.3 % (0-5); LYMPHOCYTES 36.2 % (15-50); MCH 31.4 pg (26.0-34.0); MCHC 32.1 g/dL (31.0-37.0); MCV 97.8 fL (80.0-100.0); MEAN PLATELET VOLUME 10.7 fL (7.4-10.4); MONOCYTES 5.2 % (2-11); RBC 3.57 10x6/uL (4.00-5.40); RDW 13.6 % (11.5-14.5); WBC 11.3 10x3/uL (4.8-10.8)
[2018-01-03 09:51] LABS: PLATELET COUNT 242 10x3/uL (130-400)
[2018-01-03 10:04] LABS: ANION GAP 13.5 mmol/L (8-16); CALCIUM 8.9 mg/dL (8.5-10.1); CARBON DIOXIDE 25.6 mmol/L (21.0-32.0); CREATININE - SERUM 3.7 mg/dL (0.6-1.3); POTASSIUM - SERUM 4.1 mmol/L (3.5-5.1)
== END 2018-01-03 15:55 ==
LOC: D.CATH 08:54
PROVIDERS: Internal Medicine Interventional Cardiology
DX: I25.119 Atherosclerotic heart disease of native coronary artery with unspecified angina pectoris (principal); N28.9 Disorder of kidney and ureter, unspecified; Z01.812 Encounter for preprocedural laboratory examination
CPT/HCPCS: 93458; 92978; 36252; C9600

== ENCOUNTER 2018-01-11 16:52 | Emergency (ER) | payer MEDICARE, OTHER ==
[~2018-01-11] VITALS: Ht 158.8 cm; Wt 94.5 kg
[2018-01-11 16:59] VITALS: Ht 158.8 cm; Wt 94.5 kg
[2018-01-11 18:05] LABS: BASOPHILS 0.3 % (0-2); EOSINOPHILS 1.6 % (0-7); HEMATOCRIT 34.1 % (36.0-48.0); HEMOGLOBIN 11.2 g/dL (12-16); IMMATURE GRANULOCYTES 0.4 % (0-5); LYMPHOCYTES 38.2 % (15-50); MCH 31.8 pg (26.0-34.0); MCHC 32.8 g/dL (31.0-37.0); MCV 96.9 fL (80.0-100.0); MEAN PLATELET VOLUME 11.1 fL (7.4-10.4); MONOCYTES 7.8 % (2-11); NEUTROPHILS 51.7 % (40-80); PLATELET COUNT 230 10x3/uL (130-400); RBC 3.52 10x6/uL (4.00-5.40); RDW 13.7 % (11.5-14.5); WBC 11.6 10x3/uL (4.8-10.8)
[2018-01-11 18:21] LABS: INR 1.01 (0.85-1.17); PROTIME 12.7 SECONDS (11.6-15.0)
[2018-01-11 18:23] LABS: APTT 25.6 SECONDS (22.8-39.4)
[2018-01-11 18:28] LABS: ALBUMIN 3.3 g/dL (3.4-5.0); ALKALINE PHOSPHATASE 109 U/L (46-116); ALT (SGPT) 18 U/L (10-68); BILIRUBIN - TOTAL 0.24 mg/dL (0.2-1.3); CALC OSMOLALITY 290 mosm/kg (275-300); CALCIUM 8.8 mg/dL (8.5-10.1); CHLORIDE - SERUM 101 mmol/L (98-107); CREATININE - SERUM 3.6 mg/dL (0.6-1.3); GLUCOSE 160 mg/dL (74-106); POTASSIUM - SERUM 3.5 mmol/L (3.5-5.1); PROTEIN - SERUM 7.8 g/dL (6.4-8.2); SODIUM 140 mmol/L (136-145); UREA NITROGEN 39 mg/dL (7-18); eGFR NON AFRICAN AMERICAN 13 mL/min (90-120)
[2018-01-11 18:44] LABS: CREATINE KINASE 58 UL (21-215); PRO BNP 736 pg/mL (0-125)
[2018-01-11 18:46] LABS: TROPONIN-I < 0.017 ng/mL (0.000-0.060)
[2018-01-11 19:27] VITALS: BP 172/73
== END 2018-01-11 19:27 | disposition home or self-care (01) ==
LOC: D.ER 16:52
PROVIDERS: Family Medicine
DX: R07.9 Chest pain, unspecified (principal); R06.02 Shortness of breath; Z86.73 Personal history of transient ischemic attack (TIA), and cerebral infarction without residual deficits; G40.909 Epilepsy, unspecified, not intractable, without status epilepticus; E11.9 Type 2 diabetes mellitus without complications; I10 Essential (primary) hypertension; I50.9 Heart failure, unspecified; J44.9 Chronic obstructive pulmonary disease, unspecified; Z85.828 Personal history of other malignant neoplasm of skin

== ENCOUNTER → 2018-06-16 17:59 | Outpatient (CLI) | payer MEDICARE, OTHER ==
[2018-01-11 16:59] VITALS: BMI 37.5
== END | disposition home or self-care (01) ==
LOC: D.MAMMO 10:00
DX: R92.8 Other abnormal and inconclusive findings on diagnostic imaging of breast (principal)

== ENCOUNTER 2018-08-09 09:25 | Outpatient (CLI) | payer MEDICARE, OTHER ==
[~2018-08-09] VITALS: Ht 158.8 cm; Wt 95.9 kg
--- NOTE | ~2018-08-09 | HEMODYNAMI ---
PATIENT:TYLER BAY MEDICAL RECORD: [id number] : 45 LOCATION:[facility] ADMISSION DATE: 08/09/18 Generatedon:08/09/201813:23 Patient name: TYLER BAY Patient #: [id number] SSN: : 1945 Date of study: 08/09/2018 Page: Of Hemodynamic Procedure Report Patient Data Patient Demographics Procedure consent was obtained First Name: TYLER Gender: Female Last Name: PHU : 1945 [facility] Initial: DEVI Age: 73 year(s) Patient #: [id number] Race: Additional ID: [id number] Contact details [address]: [address] [place] [address] rd State: [place] City: [place] Zip code: [address] Past Medical History Allergies Allergen Reaction Date Comments Reported Other allergy 07/27/2014 Codeine, Morphine Other allergy 07/22/2017 codeine, morpine Codeine 01/03/2018 Morphine 01/03/2018 Admission Admission Data Admission Date: 08/09/2018 Admission Time: 9:25 Procedure Procedure Types Cath Procedure Diagnostic Procedure [facility] w/Coronaries PCI Procedure Coronary Stent Coronary Stent Initial Procedure Description Procedure Date Procedure Date: 08/09/2018 Procedure Start Time: 13:02 Procedure End Time: 13:23 Procedure Staff Name Function Kei Flowers MD Performing Physician Tricia Collins RT Monitor Vanessa Saunders RN Nurse Kayla Teran RT Scrub Shelbi Andres RT Scrub Procedure Data Cath Procedure Fluoroscopy Diagnostic fluoroscopy Total fluoroscopy Time: 4.8 time: 4.8 min min Diagnostic fluoroscopy Total fluoroscopy dose: 621 dose: 621 mGy mGy Contrast Material Contrast Material Type Amount (ml) Isovue 300 68 Entry Location Entry Primary Successful Side Size Upsize Upsize Entry Closure Succes sful Closure Location (Fr) 1 (Fr) 2 (Fr) Remarks Device Remarks Femoral Right 5 Fr 6 Fr Exoseal artery Short Estimated blood loss: 10 ml Diagnostic catheters Device Type Used For End Catheter Placement MULTIPACK Pigtail 5 Fr LV Angiography catheter MULTIPACK JL 4.0 5Fr Left Coronary catheter Angiography MULTIPACK 3DRC 5Fr Right Coronary catheter Angiography Procedure Complications No complications Procedure Medications Medication Administration Route Dosage Oxygen etCO2 Nasal cannula 3 l/min Lidocaine 2% added to field 20 Heparin Flush Bag added to field 2 bags (1000units/500ml NS) 0.9% NaCl I.V. 100 ml/hr Versed I.V. 1 mg Fentanyl I.V. 50 mcg Heparin Bolus I.V. 4000 units 0.9% NaCl I.V. 300 ml/hr Hemodynamics Rest Heart Rate: 0 (bpm) Snapshots Pre Cath Intra NCS Post Cath Vital Signs Time Heart Resp SPO2 etCO2 NIBP (mmHg) Rhythm Pain Sedation Rate (ipm) (%) (mmHg) Status Level (bpm) 12:35:41 83 12 99 0 176/95(136) NSR 0 (11) 10(A) , No pain 12:40:21 83 12 99 0 175/89(145) NSR 0 (11) 10(A) , No pain 12:45:02 80 14 92 0 131/76(124) NSR 0 (11) 10(A) , No pain 12:49:24 78 13 92 0 129/78(122) NSR 0 (11) 10(A) , No pain 12:53:50 75 14 93 0 129/74(107) NSR 0 (11) 10(A) , No pain 12:58:17 81 12 93 0 135/72(112) NSR 0 (11) 10(A) , No pain 13:02:37 80 13 94 0 122/73(118) NSR 0 (11) 9(A) , No pain 13:06:59 84 14 97 0 138/75(115) NSR 0 (11) 9(A) , No pain 13:11:25 83 13 96 0 135/69(110) NSR 0 (11) 9(A) , No pain 13:15:56 80 14 96 0 134/72(117) NSR 0 (11) 9(A) , No pain 13:21:29 84 12 96 0 138/81(125) NSR 0 (11) 10(A) , No pain Medications Time Medication Route Dose Verified Delivered Reason Notes Effectiveness by by 12:37:13 Oxygen etCO2 3 Kei Vanessa used for Nasal l/min Lionel Saunders RN procedure cannula 12:37:18 Lidocaine 2% added 20ml Keimarietta Choudhury for local to vial Lionel Flowers MD anesthetic field 12:37:25 Heparin Flush added 2 Kei Kei used for Bag to bags Lionel Flowers MD procedure (1000units/500ml field NS) 12:37:35 0.9% NaCl I.V. 100 Kei Bravoie Per physician ml/hr Lionel Saunders RN 13:00:37 Versed I.V. 1 mg Kei Mendez for sedation Lionel Saunders RN 13:00:44 Fentanyl I.V. 50 Kei Buffie for sedation mcg Lionel Saunders RN 13:10:43 Heparin Bolus I.V. 4000 Kei Bravoie for verif ied units Lionel Saunders RN anticoagulation with dr flowers 13:12:29 0.9% NaCl I.V. 300 Kei Bravoie Per physician ml/hr Lionel Saunders RN Procedure Log Time Note 11:35:54 Time tracking: Regular hours (M-F 7:00 - 5:00) 11:35:59 Plan of Care:Hemodynamics will remain stable., Cardiac rhythm will remain stable., Comfort level will be maintained., Respiratory function will remain adequate., Patient/ family verbilizes understanding of procedure., Procedure tolerated without complication., Recovers from procedure without complications.. 12:22:38 Tricia Counts RT(R) sent for patient. Start room use. 12:34:08 Patient received from Pre/Post Procedure Room to CCL 1 Alert and oriented. Tansferred to table in Supine position. 12:34:09 Warm blankets applied, and isabel hugger turned on for patient comfort. 12:34:10 Correct patient and procedure confirmed by team. 12:34:11 Signed procedure consent form obtained from patient. 12:34:12 ECG and BP/O2 sat monitors applied to patient. 12:34:13 Vital chart was started 12:34:19 Rhythm: sinus rhythm 12:34:21 Full Disclosure recording started 12:34:26 H&P Date Dictated: 08/09/2018 Within 30 days and on chart., H&P Addendum completed by physician on day of procedure. (MUST COMPLETE FOR ALL OUTPATIENTS). 12:34:27 Pre-procedure instructions explained to patient. 12:34:28 Pre-op teaching completed and patient verbalized understanding. 12:34:30 Family in waiting room. 12:34:32 Patient NPO since Midnight. 12:34:34 Is the patient allergic to Iodine/contrast media? No. 12:34:36 Was the patient premedicated? No 12:34:38 Is patient on blood thinner?Yes 12:34:40 ACC The patient was administered the following blood thiners within the last 24 hours: ACCPlavix 12:34:42 Patient diabetic? Yes. 12:34:43 If diabetic: On Metformin? No 12:34:48 Previous problem with sedation/anesthesia? No ? 12:34:49 Snore? Yes 12:34:50 Sleep apnea? Yes 12:34:54 Deviated septum? No 12:34:54 Opens mouth fully? Yes 12:34:55 Sticks out tongue? Yes 12:35:07 Airway obstruction? Yes ? 12:35:11 Dentures? No ? 12:37:05 Pre procedure: right dorsailis pedis pulse 2+ Normal; easily identifiable; not easily obliterated 12:37:07 Patient pain scale 0/10 ?. 12:37:13 Oxygen 3 l/min etCO2 Nasal cannula was administered by Vanessa Saunders RN; used for procedure; 12:37:17 IV patent on arrival in right forearm with 0.9% NaCl at [facility]. 12:37:18 Lidocaine 2% 20ml vial added to field was administered by Kei Flowers MD; for local anesthetic; 12:37:19 Lab results completed and on chart. 12:37:25 Heparin Flush Bag (1000units/500ml NS) 2 bags added to field was administered by Kei Flowers MD; used for procedure; 12:37:25 Right groin area was prepped with chlora-prep and draped in sterile fashion 12:37:26 Alarms reviewed by R. N. 12:37:26 Sharps counted by scrub and verified by R.N. 12:37:30 Use device set Femoral Dx 12:37:31 ACIST Syringe (87549) opened to sterile field. 12:37:31 Bag Decanter (2002S) opened to sterile field. 12:37:32 Medline Cath Pack ([id number]) opened to sterile field. 12:37:32 DIAGNOSTIC WIRE .035 260cm J wire (696500) opened to sterile field. 12:37:34 ACIST Hand Control (96100) opened to sterile field. 12:37:34 ACIST Manifold (01574) opened to sterile field. 12:37:35 0.9% NaCl 100 ml/hr I.V. was administered by Vanessa Saunders RN; Per physician; 12:37:35 DIAGNOSTIC Multipack 5Fr catheter set ([id number]) opened to sterile field. 12:37:35 Tegaderm 4 x 4 (1626W) opened to sterile field. 12:37:36 SHEATH 5FR [place] (SWM345) opened to sterile field. 12:39:57 Baseline sample Acquired. 12:56:36 Final Timeout: patient, procedure, and site verified with staff and physician. All members of the team are in agreement. 12:56:39 Right groin site verified by team. 12:56:42 Fire Safety Assessment: A--An alcohol-based skin anteseptic being used preoperatively., C--Open oxygen or nitrous oxide is being used., D--An ESU, laser, or fiber-optic light is being used. 12:56:47 Physical assessment completed. ASA score P 3 - A patient with severe systemic disease as per Kei Flowers MD. 12:56:50 Sedation plan: IV Moderate Sedation Medication:Versed, Fentanyl 13:00:37 Versed 1 mg I.V. was administered by Vanessa Saunders RN; for sedation; 13:00:44 Fentanyl 50 mcg I.V. was administered by Vanessa Saunders RN; for sedation; 13:02:51 Procedure started. 13:02:55 Local anesthetic to right femoral artery with Lidocaine 2% by Kei Flowers MD.INITIAL ACCESS ONLY 13:03:23 A 5 Fr sheath was inserted into the Right Femoral artery 13:03:54 A MULTIPACK Pigtail 5 Fr catheter was advanced over the wire and used for LV Angiography. 13:04:05 LV gram done using PATEL 13:04:09 Injector settings: Ml/sec: 7, Volume: 15, 13:04:20 EF : 60 % 13:04:24 Catheter removed. 13:04:41 A MULTIPACK JL 4.0 5Fr catheter was advanced over the wire and used for Left Coronary Angiography. 13:06:50 Catheter removed. 13:08:12 A MULTIPACK 3DRC 5Fr catheter was advanced over the wire and used for Right Coronary Angiography. 13:08:58 Catheter removed. 13:09:00 Sheath upsized to a 6 Fr Short. 13:09:02 GUIDE 6FR EBU 3.0 catheter ([id number]) opened to sterile field. 13:09:03 6 Fr ebu 3.0 guide catheter was inserted over the wire 13:09:05 LCA angiography performed. 13:09:15 Use device set LIONEL PCI 13:09:24 INFLATOR Merit BasixCompak (EG0529) opened to sterile field. 13:09:26 CHOICE PT Extra Support 182cm wire ([id number]) opened to sterile field. 13:09:29 SHEATH 6FR [place] (RUV551) opened to sterile field. 13:10:33 CHOICE PT Extra Support 182cm wire ([id number]) opened to sterile field. 13:10:43 Heparin Bolus 4000 units I.V. was administered by Vanessa Saunders RN; for anticoagulation; verified with dr flowers 13:11:05 CHOICE PT ES CIRC wire advanced. 13:11:22 2ND CHOICE PT ES LAD wire advanced. 13:12:29 0.9% NaCl 300 ml/hr I.V. was administered by Vanessa Saunders RN; Per physician; 13:12:50 Inflate balloon Inflation number: 1 A EUPHORA 3.0 x 10 balloon ([id number]) was prepped and advanced across the Prox LAD, then inflated to 17 WYATT for 0:06 (min:sec). 13:13:50 Balloon removed over the wire. 13:14:57 Place stent Inflation Number: 2 A MICHELLE RX 3.0 x 08 stent ([id number]) was prepped and advanced across the Prox LAD. The stent was deployed at 19 WYATT for 0:08 (min:sec). 13:15:39 Inflation number: 3 The stent balloon was then re-inflated across the Prox LAD to 21 WYATT for 0:09 (min:sec). 13:15:53 Stent catheter was removed intact over wire. 13:15:54 Wire removed. 13:15:55 Guide catheter removed. 13:16:34 Sheath removed intact; hemostasis achieved with Exoseal to the Right Femoral artery. 13:16:36 Procedure ended.(Physican Out) 13:16:38 EXOSEAL 6Fr (EX600) opened to sterile field. 13:16:44 Fluoroscopy time 04.80 minutes. 13:16:51 Flurop Dose total: 621 13:16:51 Fluoroscopy dose: 621 mGy 13:16:58 Contrast amount:Isovue 300 68ml. 13:17:00 Sharps counted by scrub and verified by R.N. 13:17:01 Insertion/operative site no bleeding no hematoma. 13:17:04 Post-op/insertion site Right Femoral artery dressed using a 4 x 4 and Tegaderm. 13:17:07 Post right femoral artery:stable, clean and dry 13:17:09 Post Procedure Pulses reassessed and unchanged 13:17:17 Post-procedure physical assessment completed. ASA score P 3 - A patient with severe systemic disease as per Kei Flowers MD. 13:17:19 Post procedure rhythm: unchanged. 13:17:22 Estimated blood loss: 10 ml 13:17:24 Post procedure instruction explained to patient.Patient verbalizes understanding. 13:17:24 Patient needs reinforcement of post procedure teaching. 13:17:34 Procedure type changed to Cath procedure, Diagnostic procedure, LHC, LHC w/Coronaries, PCI procedure, Coronary Stent, Coronary Stent Initial 13:22:13 Procedure and supply charges have been captured, reviewed, submitted and are correct. 13:22:18 Procedure Complication : No complications 13:22:20 See physician's report for complete and final results. 13:23:08 Vital chart was stopped 13:23:10 Report given to Pre/Post Procedure Room. 13:23:13 Patient transfered to Pre/Post Procedure Room with Stretcher. 13:23:23 Procedure ended. 13:23:23 Full Disclosure recording stopped 13:23:30 End room use (Document Last) Intervention Summary Intervention Notes Time ActionType Lesion and Equipment Used Action# Pressure Duration Attributes 13:12:50 Inflate Prox LAD EUPHORA 3.0 x 1 17 00:06 balloon 10 balloon ([id number]) 13:14:57 Place stent Prox LAD MICHELLE RX 3.0 x 2 19 00:08 08 stent ([id number]) 13:15:39 Reinflate Prox LAD MICHELLE RX 3.0 x 3 21 00:09 stent 08 stent balloon ([id number]) Device Usage Item Name Manufacture Quantity Catalog Number Hospital Part Current M inimal Lot# / Charge Number Stock Stock Serial# Code ACIST Syringe Acist 1 82574 004937 991547 588027 2 0 (03981) Medical Systems Inc Bag Decanter Microtek 1 110341 43890 010440 5 () Medical Inc. Medline Cath Medline 1 [id number] 307236 20507 005762 5 Pack ([id number]) DIAGNOSTIC St Keyur 1 325182 672008 752320 536196 3 0 WIRE .035 260cm J wire (705575) ACIST Hand Acist 1 24899 969594 433776 628104 5 Control Medical (01398) Systems Inc ACIST Manifold Acist 1 10695 944826 832845 536265 5 (73732) Medical Systems Inc DIAGNOSTIC Cardinal 1 YC2908 123661 50431 790391 3 0 Multipack 5Fr Health catheter set (FS7970) Tegaderm 4 x 4 3M 1 1626W 332974 637300 775255 5 (1626W) SHEATH 5FR Terumo 1 WKM848 938129 012273 200757 5 [place] (IRB601) MULTIPACK Cardinal 1 912684 5 Pigtail 5 Fr Health catheter MULTIPACK JL Cardinal 1 102966 5 4.0 5Fr Health catheter GUIDE 6FR EBU Medtronic 1 [id number] 739123 77141 745316 0 3.0 catheter ([id number]) MULTIPACK 3DRC Cardinal 1 655012 5 5Fr catheter Health INFLATOR Merit Merit 1 SE0037 883886 559082 299065 1 5 Red e App (DP3873) CHOICE PT Jefferson 2 [id number] 857633 397264 703365 5 Extra Support Scientific 182cm wire ([id number]) SHEATH 6FR Terumo 1 BHB503 893949 121301 120365 4 0 [place] (LWZ300) EUPHORA 3.0 x Medtronic 1 [id number] 408718 021394 169319 5 [id number] 10 balloon ([id number]) MICHELLE RX 3.0 x Medtronic 1 [id number] 049509 7393307 008954 5 [id number] 08 stent ([id number]) EXOSEAL 6Fr Cardinal 1 EX600 506168 174928 840846 1 0 (EX600) Health Signature Audit [place]man Stage Time Signature Unsigned Intra-Procedure 08/09/2018 Tricia 1:23:48 PM Counts RT(R) Signatures Monitor : Tricia Signature : Counts RT Date : Time : [id number] [place] [address]
[2018-08-09] MEDS ORDERED: VITAMIN D250000 UNIT PO (10:00)
[2018-08-09 10:05] VITALS: BP 183/77; Ht 158.8 cm; Wt 95.9 kg
[2018-08-09 10:29] LABS: ANION GAP 18.5 mmol/L (8-16); CALCIUM 8.9 mg/dL (8.5-10.1); CARBON DIOXIDE 20.3 mmol/L (21.0-32.0); CREATININE - SERUM 3.9 mg/dL (0.6-1.3); POTASSIUM - SERUM 3.8 mmol/L (3.5-5.1)
[2018-08-09 10:50] LABS: BASOPHILS 0.2 % (0-2); EOSINOPHILS 0.9 % (0-7); HEMOGLOBIN 11.9 g/dL (12-16); IMMATURE GRANULOCYTES 0.4 % (0-5); LYMPHOCYTES 36.5 % (15-50); MCH 31.2 pg (26.0-34.0); MCHC 32.2 g/dL (31.0-37.0); MCV 97.1 fL (80.0-100.0); MEAN PLATELET VOLUME 11.2 fL (7.4-10.4); MONOCYTES 5.1 % (2-11); NEUTROPHILS 56.9 % (40-80); PLATELET COUNT 246 10x3/uL (130-400); RBC 3.81 10x6/uL (4.00-5.40); RDW 14.4 % (11.5-14.5); WBC 13.9 10x3/uL (4.8-10.8)
--- NOTE | 2018-08-09 13:50 | NUR ---
PATIENT RESTING, VSS ON 2L NC. RIGHT GROIN DRESSING IS CDI, NO S/S OF BLEEDING OR HEMATOMA. RIGHT GROIN DRESSING IS CDI,NO S/S OF BLEEDING OR HEMATOMA.
--- NOTE | 2018-08-09 14:20 | NUR ---
PATIENT RESTING, FAMILY AT BEDSIDE. VSS. PATIENT PLACED ON 4L NC R/T APNEA DURING SLEEP - PATIENT HAS HOME CPAP THAT WAS NOT BROUGHT TO HOSPITAL. RIGHT GROIN DRESSING IS CDI, NO S/S OF BLEEDING OR HEMATOMA. PHYSICIAN AT BEDSIDE TO UPDATE FAMILY.
--- NOTE | 2018-08-09 14:50 | NUR ---
PATIENT RESTING, VSS ON 4L NC. RIGHT GROIN DRESSING IS CDI, NO S/S OF BLEEDING OR HEMATOMA.
--- NOTE | 2018-08-09 15:20 | NUR ---
PATIENT RESTING, VSS ON 3L NC. RIGHT GROIN DRESSING IS CDI,NO S/S OF BLEEDING OR HEMATOMA. NO C/O PAIN,NUMBNESS, OR TINGLING.
--- NOTE | 2018-08-09 15:50 | NUR ---
PATIENT RESTING, VSS ON 3L NC. RIGHT GROIN DRESSING IS CDI, NO S/S OF BLEEDING OR HEMATOMA. NO N/V.
--- NOTE | 2018-08-09 16:20 | NUR ---
PATIENT AWAKE, SON AT BEDSIDE. VSS ON 3L NC. HEAD OF BED ELEVATED TO 30 DEGREES, RIGHT GROIN DRESSING IS CDI, NO S/S OF BLEEDING OR HEMATOMA. PATIENT EATING TURKEY SANDWICH AND DRINKING ORANGE JUICE, NO N/V.
--- NOTE | 2018-08-09 16:50 | NUR ---
PATIENT AWAKE, SITTING UP. EDUCATION GIVEN TO PATIENT AND SON REGARDING DISCHARGE INSTRUCTIONS AND MEDICATIONS, ALL QUESTIONS ANSWERED. VSS ON 2L NC. RIGHT GROIN DRESSING IS CDI, NO S/S OF BLEEDING OR HEMATOMA. IV REMOVED.
--- NOTE | 2018-08-09 17:15 | NUR ---
PATIENT TRANSPORTED TO BATHROOM, VOIDED WITHOUT DIFFICULTY. PATIENT TRANSPORTED TO CAR WITH SON DRIVING, ALL BELONGINGS WITH PATIENT.
--- NOTE | 2018-08-16 11:18 | OP ---
PATIENT NAME: TYLER BAY MEDICAL RECORD: [id number] :45 LOCATION:D.CAT ADMISSION DATE: SURGEON: JAMAAL AVENDAÑO MD DATE OF OPERATION: 08/09/2018 PROCEDURES: 1. PTCA stent LAD. 2. Left heart catheterization. 3. Selective coronary angiography. 4. Left ventriculogram. INDICATION: Angina and coronary artery disease. PROCEDURE IN DETAIL: After informed consent was obtained and after detailed description of risks, benefits as well as alternative therapies, the patient elected to proceed with angiogram and angioplasty. The right femoral area was prepped and draped in normal sterile fashion. Right femoral artery was cannulated via modified Seldinger technique with placement of 6-Ecuadorean sheath. All catheters exchanged through this sheath. FINDINGS: The left ventriculogram was performed in standard 30-degree PATEL view, reveals good cardiac wall motion throughout all segments. Overall ejection fraction estimated 60%. SELECTIVE CORONARY ANGIOGRAPHY: 1. Left main is with no significant angiographic disease. 2. Left anterior descending has previously placed stent with 80% stenosis at the ostium, just proximal to the previously placed stent. 3. Left circumflex has previously placed stents, these are widely patent. 4. The right coronary has at least 80% stenosis at the ostium with pressure damping of the catheter. PTCA STENT OF THE LAD: Ostium of the LAD was addressed with a 3.0 x 9 mm Fonda stent. Result was 0% residual stenosis. OVERALL IMPRESSION: Successful PTCA stent of the LAD from 80% initial stenosis to 0% residual. PLAN: PTCA stent of the RCA ostium in the near future. TRANSINT:[id number] Voice Confirmation ID: [id number] DOCUMENT ID: [id number] JAMAAL AVENDAÑO MD at 1118 CC: [id number] DICTATION DATE: 08/09/18 1414 ROLL ON MAN: 08/09/18 1525 [facility] CLI 08/09/[address] [address]
== END 2018-08-09 17:15 ==
LOC: D.CATH 09:25
PROVIDERS: Internal Medicine Interventional Cardiology
DX: I25.119 Atherosclerotic heart disease of native coronary artery with unspecified angina pectoris (principal); Z01.812 Encounter for preprocedural laboratory examination
CPT/HCPCS: 93458; C9600

== ENCOUNTER 2018-08-12 07:57 | Outpatient (CLI) | payer MEDICARE, OTHER ==
[~2018-08-12] VITALS: Ht 158.8 cm; Wt 95.9 kg
--- NOTE | ~2018-08-12 | HEMODYNAMI ---
PATIENT:TYLER BAY MEDICAL RECORD: [id number] : 45 LOCATION:[facility] ADMISSION DATE: 08/12/18 Generatedon:08/12/201811:03 Patient name: TYLER BAY Patient #: [id number] SSN: : 1945 Date of study: 08/12/2018 Page: Of Hemodynamic Procedure Report Patient Data Patient Demographics Procedure consent was obtained First Name: TYLER Gender: Female Last Name: PHU : 1945 [facility] Initial: DEVI Age: 73 year(s) Patient #: [id number] Race: Additional ID: [id number] Contact details Address: [address] [place] [address] rd State: [place] City: [place] Zip code: [address] Past Medical History Allergies Allergen Reaction Date Comments Reported Other allergy 07/27/2014 Codeine, Morphine Other allergy 07/22/2017 codeine, morpine Codeine 01/03/2018 Morphine 01/03/2018 Other allergy 08/12/2018 MORPHINE, CODEINE Admission Admission Data Admission Date: 08/12/2018 Admission Time: 7:57 Lab Results Lab Result Date: 08/12/2018 Lab Result Time: 0:00 Biochemistry Name Units Result Min Max BUN mg/dl 37 --(----)-* 7 18 Creatinine mg/dl 3.7 --(----)-* 0.6 1.3 CBC Name Units Result Min Max Hemoglobin g/dl 11.2 *-(----)-- 13.5 17.5 Procedure Procedure Types Cath Procedure PCI Procedure Coronary Stent Coronary Stent Initial Peripheral Cath Diagnostic Procedure History Card Clerk Peripheral Procedures Gbdjt-Moilowb-Ggv-Off Procedure Description Procedure Date Procedure Date: 08/12/2018 Procedure Start Time: 10:49 Procedure End Time: 11:00 Procedure Staff Name Function Kei Flowers MD Performing Physician Nae Fletcher RT Monitor Kalpesh Bach RT Scrub Vanessa Saunders RN Nurse Carlos Nath RN Church History Professor Procedure Data Cath Procedure Fluoroscopy Diagnostic fluoroscopy Total fluoroscopy Time: 2 time: 2 min min Diagnostic fluoroscopy Total fluoroscopy dose: 238 dose: 238 mGy mGy Contrast Material Contrast Material Type Amount (ml) Isovue 300 64 Entry Location Entry Primary Successful Side Size Upsize Upsize Entry Closure Succes sful Closure Location (Fr) 1 (Fr) 2 (Fr) Remarks Device Remarks Femoral Right 6 Fr Exoseal artery Short Estimated blood loss: 10 ml Diagnostic catheters Device Type Used For End Catheter Placement DIAGNOSTIC UF 5Fr Procedure catheter ([id number]) Procedure Complications No complications Procedure Medications Medication Administration Route Dosage Oxygen etCO2 Nasal cannula 2 l/min Lidocaine 2% added to field 20 Heparin Flush Bag added to field 2 bags (1000units/500ml NS) 0.9% NaCl I.V. 100 ml/hr Plavix P.O. 75 mg Versed I.V. 1 mg Fentanyl I.V. 50 mcg Versed I.V. 0.5 mg Fentanyl I.V. 25 mcg Heparin Bolus I.V. 4000 units Hemodynamics Rest Heart Rate: 85 (bpm) Snapshots Pre Cath Intra NCS Post Cath Vital Signs Time Heart Resp SPO2 etCO2 NIBP (mmHg) Rhythm Pain Sedation Rate (ipm) (%) (mmHg) Status Level (bpm) 10:33:15 83 17 93 27 172/85(124) NSR 0 (11) 10(A) , No pain 10:37:56 82 18 100 0 147/78(109) NSR 0 (11) 10(A) , No pain 10:42:30 85 14 95 48.9 146/73(113) NSR 0 (11) 10(A) , No pain 10:46:55 86 19 93 0 130/70(107) NSR 0 (11) 10(A) , No pain 10:51:21 86 17 94 45.9 135/79(111) NSR 0 (11) 9(A) , No pain 10:55:51 89 12 95 38.3 152/72(112) NSR 0 (11) 9(A) , No pain 11:00:26 87 16 98 45.9 138/76(113) NSR 0 (11) 10(A) , No pain Medications Time Medication Route Dose Verified Delivered Reason Notes Effectiveness by by 10:17:20 Oxygen etCO2 2 Kei Mendez used for Nasal l/min Lionel Saunders RN procedure cannula 10:17:27 Lidocaine 2% added 20ml Kei Choudhury for local to vial Lionel Flowers MD anesthetic field 10:17:32 Heparin Flush added 2 Kei Choudhury used for Bag to bags Lionel Flowers MD procedure (1000units/500ml field NS) 10:17:41 0.9% NaCl I.V. 100 Kei Mendez Per physician ml/hr Lionel Saunders RN 10:28:09 Plavix P.O. 75 mg Kei Mendez for Lionel Saunders RN antiplatelet therapy 10:45:26 Versed I.V. 1 mg Kei Mendez for sedation Lionel Saunders RN 10:45:33 Fentanyl I.V. 50 Kei Mendez for sedation mcg Lionel Saunders RN 10:49:55 Versed I.V. 0.5 Kei Mendez for sedation mg Lionel Saunders RN 10:49:59 Fentanyl I.V. 25 Kei Mendez for sedation mcg Lionel Saunders RN 10:53:21 Heparin Bolus I.V. 4000 Kei Mendez for verif ied units Lionel Saunders RN anticoagulation with dr flowers Procedure Log Time Note 10:01:07 Signed procedure consent form obtained from patient. 10:01:08 Diagnostic Cath status Elective 10:01:10 Time tracking: Regular hours (M-F 7:00 - 5:00) 10:01:13 Plan of Care:Hemodynamics will remain stable., Cardiac rhythm will remain stable., Comfort level will be maintained., Respiratory function will remain adequate., Patient/ family verbilizes understanding of procedure., Procedure tolerated without complication., Recovers from procedure without complications.. 10:04:32 Patient allergic to Other allergyMORPHINE, CODEINE 10:04:54 Lab Result : BUN 37 mg/dl 10:04:54 Lab Result : Creatinine 3.7 mg/dl 10:04:54 Lab Result : Hemoglobin 11.2 g/dl 10:16:42 Carlos Nath RN sent for patient. Start room use. 10:17:20 Oxygen 2 l/min etCO2 Nasal cannula was administered by Vanessa Saunders RN; used for procedure; 10:17:27 Lidocaine 2% 20ml vial added to field was administered by Kei Flowers MD; for local anesthetic; 10:17:32 Heparin Flush Bag (1000units/500ml NS) 2 bags added to field was administered by Kei Flowers MD; used for procedure; 10:17:41 0.9% NaCl 100 ml/hr I.V. was administered by Vanessa Saunders RN; Per physician; 10:20:34 Patient received from Pre/Post Procedure Room to CCL 1 Alert and oriented. Tansferred to table in Supine position. 10:21:00 Warm blankets applied, and isabel hugger turned on for patient comfort. 10:21:00 Correct patient and procedure confirmed by team. 10:21:01 ECG and BP/O2 sat monitors applied to patient. 10:28:09 Plavix 75 mg P.O. was administered by Vanessa Saunders RN; for antiplatelet therapy; 10::42 Vital chart was started 10:31:46 Rhythm: sinus rhythm 10:31:48 Full Disclosure recording started 10:32:03 Pre-procedure instructions explained to patient. 10:32:04 Pre-op teaching completed and patient verbalized understanding. 10:32:07 Family in patients room. 10:32:09 Patient NPO since Midnight. 10:32:11 Is patient on blood thinner?Yes 10:32:14 ACC The patient was administered the following blood thiners within the last 24 hours: ACCPlavix 10:32:52 Patient diabetic? Yes. 10:32:53 If diabetic: On Metformin? No 10:32:57 Previous problem with sedation/anesthesia? No ? 10:32:58 Snore? Yes 10:32:59 Sleep apnea? Yes 10:33:00 Deviated septum? No 10:33:01 Opens mouth fully? Yes 10:33:02 Sticks out tongue? Yes 10:33:27 Airway obstruction? Yes COPD 10:33:29 Dentures? No ? 10:33:33 Pre procedure: left dorsailis pedis pulse 2+ Normal; easily identifiable; not easily obliterated 10:33:36 Pre procedure: right dorsailis pedis pulse 2+ Normal; easily identifiable; not easily obliterated 10:33:40 Patient pain scale 0/10 ?. 10:33:49 IV patent on arrival in left hand with 0.9% NaCl at [facility]. 10:33:52 Lab results completed and on chart. 10:33:55 Bilateral groins area was prepped with chlora-prep and draped in sterile fashion 10:33:56 Alarms reviewed by R. N. 10:33:56 Sharps counted by scrub and verified by R.N. 10:34:07 Procedure type changed to Cath procedure, PCI procedure, Coronary Stent, Coronary Stent Initial, Peripheral Cath Diagnostic Procedure, History Card Clerk Peripheral Procedures, Zekff-Mvexkma-Cgz-Off 10:34:13 Use device set CATH PACK 10:34:14 ACIST Syringe (44560) opened to sterile field. 10:34:14 ACIST Hand Control (24159) opened to sterile field. 10:34:14 ACIST Manifold (90614) opened to sterile field. 10:34:15 Medline Cath Pack ([id number]) opened to sterile field. 10:34:15 Bag Decanter (2002S) opened to sterile field. 10:34:15 DIAGNOSTIC WIRE .035 260cm J wire (620582) opened to sterile field. 10:34:29 SHEATH 6FR Silver (ZYY730) opened to sterile field. 10:34:30 CHOICE PT Extra Support 182cm wire ([id number]) opened to sterile field. 10:34:30 INFLATOR Merit BasixCompak (PD7362) opened to sterile field. 10:44:25 Baseline sample Acquired. 10:44:28 --------ALL STOP TIME OUT------ 10:44:28 Final Timeout: patient, procedure, and site verified with staff and physician. All members of the team are in agreement. 10:44:30 Bilateral groins site verified by team. 10:44:35 Fire Safety Assessment: A--An alcohol-based skin anteseptic being used preoperatively., C--Open oxygen or nitrous oxide is being used., D--An ESU, laser, or fiber-optic light is being used. 10:44:37 Physical assessment completed. ASA score P 2 - A patient with mild systemic disease as per Kei Flowers MD. 10:44:40 Sedation plan: IV Moderate Sedation Medication:Versed, Fentanyl 10:45:26 Versed 1 mg I.V. was administered by Vanessa Saunders RN; for sedation; 10:45:33 Fentanyl 50 mcg I.V. was administered by Buffie Saunders RN; for sedation; 10:48:52 Procedure started. 10:49:16 Local anesthetic to right femoral artery with Lidocaine 2% by Kei Flowers MD.INITIAL ACCESS ONLY 10:49:55 Versed 0.5 mg I.V. was administered by Vanessa Saunders RN; for sedation; 10:49:59 Fentanyl 25 mcg I.V. was administered by Vanessa Saunders RN; for sedation; 10:50:29 A 6 Fr Short sheath was inserted into the Right Femoral artery 10:50:38 A DIAGNOSTIC UF 5Fr catheter ([id number]) was advanced over the wire and used for Procedure. 10:51:45 Abdominal angiogram w/ runoff was performed. 10:51:47 Left leg runoff performed. 10:52:03 Right leg runoff performed. 10:52:10 Catheter removed. 10:52:17 GUIDE 6FR HS I SH catheter ([id number]) opened to sterile field. 10:52:26 6 Fr HS 1 SH guide catheter was inserted over the wire 10:53:21 Heparin Bolus 4000 units I.V. was administered by Vanessa Saunders RN; for anticoagulation; verified with dr flowers 10:53:55 CHOICE ES 182 wire advanced. 10:53:57 Wire advanced across lesion. 10:55:12 Place stent Inflation Number: 1 A MICHELLE RX 3.5 x 15 stent ([id number]) was prepped and advanced across the Prox RCA. The stent was deployed at 15 WYATT for 0:00 (min:sec). 10:55:26 Stent catheter was removed intact over wire. 10:55:27 Wire removed. 10:55:27 Guide catheter removed. 10:55:33 EXOSEAL 6Fr (EX600) opened to sterile field. 10:55:54 Sheath removed intact; hemostasis achieved with Exoseal to the Right Femoral artery. 10:56:26 Procedure ended.(Physican Out) 10:58:05 Fluoroscopy time 02.00 minutes. 10:58:18 Flurop Dose total: 238 10:58:18 Fluoroscopy dose: 238 mGy 10:58:21 Contrast amount:Isovue 300 64ml. 10:58:23 Sharps counted by scrub and verified by R.N. 10:58:25 Post-op/insertion site Right Femoral artery dressed using a 4 x 4 and Tegaderm. 10:58:28 Post-procedure physical assessment completed. ASA score P 2 - A patient with mild systemic disease as per Kei Flowers MD. 10:58:30 Post procedure rhythm: sinus rhythm 10:58:32 Estimated blood loss: 10 ml 10:58:34 Post procedure instruction explained to patient.Patient verbalizes understanding. 10:58:34 Patient needs reinforcement of post procedure teaching. 10:59:54 Procedure and supply charges have been captured, reviewed, submitted and are correct. 10:59:56 Procedure Complication : No complications 10:59:59 Vital chart was stopped 11:00:00 See physician's report for complete and final results. 11:00:02 Report given to Pre/Post Procedure Room. 11:00:05 Patient transfered to Pre/Post Procedure Room with Bed. 11:00:07 Procedure ended. 11:00:07 Full Disclosure recording stopped 11:00:09 End room use (Document Last) 11:02:44 H&P Date Dictated: 08/12/2018 New H&P dictated by physician.. Intervention Summary Intervention Notes Time ActionType Lesion and Equipment Used Action# Pressure Duration Attributes 10:55:[address] stent Prox RCA MICHELLE RX 3.5 x 1 15 00:00 15 stent ([id number]) Device Usage Item Name Manufacture Quantity Catalog Number Hospital Part Current M inimal Lot# / Charge Number Stock Stock Serial# Code ACIST Syringe Acist 1 66542 657645 028409 806400 2 0 (59072) Medical Systems Inc ACIST Hand Acist 1 13651 170722 330951 102425 5 Control Medical (58491) Systems Inc ACIST Manifold Acist 1 63422 746884 394054 995510 5 (89451) Medical Systems Inc Medline Cath Medline 1 [id number] 418055 07836 858296 5 Pack ([id number]) Bag Decanter Microtek 1 2001S 801788 15724 080510 5 () Medical Inc. DIAGNOSTIC St Keyur 1 478133 779336 644238 703972 3 0 WIRE .035 260cm J wire (691354) SHEATH 6FR Terumo 1 BZC599 616966 780619 159974 4 0 Silver (JUV656) CHOICE PT Hartman 1 [id number] 495708 094513 610525 5 Extra Support Scientific 182cm wire (5302791P0) INFLATOR Merit Merit 1 XX7572 683876 306415 725051 1 5 [facility] (TF0083) DIAGNOSTIC UF Cardinal 1 [id number] 382419 006337 254466 1 0 5Fr catheter Health (646705P9) GUIDE 6FR HS I Medtronic 1 [id number] 652813 14651 269067 1 SH catheter ([id number]) MICHELLE RX 3.5 x Medtronic 1 [id number] 097727 6037452 413923 5 [id number] 15 stent ([id number]) EXOSEAL 6Fr Cardinal 1 EX600 837473 639493 959158 1 0 (EX600) Health Signature Audit [place] Stage Time Signature Unsigned Intra-Procedure 08/12/2018 Nae Fletcher 11:03:29 AM RT(R) Signatures Monitor : Nae Fletcher Signature : RT Date : Time : [place] [id number] [place] [address]
[~2018-08-12 07:57] MED LIST changes: +VITAMIN D250000 UNIT PO
[2018-08-12 08:23] VITALS: BP 164/68; Ht 158.8 cm; Wt 95.9 kg
[2018-08-12 08:44] LABS: ANION GAP 16.4 mmol/L (8-16); CALCIUM 8.8 mg/dL (8.5-10.1); CARBON DIOXIDE 23.2 mmol/L (21.0-32.0); CREATININE - SERUM 3.7 mg/dL (0.6-1.3); POTASSIUM - SERUM 3.6 mmol/L (3.5-5.1)
[2018-08-12 08:47] LABS: BASOPHILS 0.2 % (0-2); EOSINOPHILS 1.2 % (0-7); HEMATOCRIT 35.3 % (36.0-48.0); HEMOGLOBIN 11.2 g/dL (12-16); IMMATURE GRANULOCYTES 0.6 % (0-5); LYMPHOCYTES 28.8 % (15-50); MCHC 31.7 g/dL (31.0-37.0); MCV 97.8 fL (80.0-100.0); MONOCYTES 7.2 % (2-11); PLATELET COUNT 218 10x3/uL (130-400); RBC 3.61 10x6/uL (4.00-5.40); RDW 14.5 % (11.5-14.5)
--- NOTE | 2018-08-12 11:15 | NUR ---
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 PT DROWSY BUT AROUSABLE TO VERBAL STIMULI. HR NSR RATE 89, BP 170/76, O2 SAT 85 PLACED ON 4L/NC. PT USES O2 AT HOME AND HAS APNEA. 6 FR EXOCELE TO R GROIN, DRESSING CDI NO BLEEDING OR SWELLING NOTED. PT INSTRUCTED TO KEEP HEAD FLAT AND LEG STRAIGHT. CALL LIGHT IN REACH.
--- NOTE | 2018-08-12 11:30 | NUR ---
PT RESTING COMFORTABLY, R GROIN DRESSING CDI NO BLEEDING OR HEMATOMA NOTED. PEDAL PULSES PALPABLE, CALL LIGHT IN REACH AND FAMILY AT BEDSIDE
--- NOTE | 2018-08-12 12:00 | NUR ---
PT DENIES NEEDS OR PAIN, GROIN SOFT, DRESSING CDI NO BLEEDING OR SWELLING NOTED. FAMILY AT BEDSIDE AND CALL LIGHT IN REACH.
--- NOTE | 2018-08-12 12:16 | NUR ---
PT RESTING QUIETLY, GROIN DRESSING CDI NO BLEEDING OR SWELLING NOTED. EXTREMITY WARM AND PINK, PEDAL PULSES PALPABLE. DENIES PAIN OR NEEDS AT THIS TIME. CALL LIGHT IN REACH AND FAMILY AT BEDSIDE.
--- NOTE | 2018-08-12 12:45 | NUR ---
PT RESTING QUIETLY, REQUEST BEDPAN VOIDED MOD AMOUNT CLEAR YELLOW URINE. REPOSITIONED IN BED FOR COMFORT. R GROIN DRESSING CDI NO BLEEDING OR HEMATOMA NOTED. PT DENIES PAIN OR NEEDS. CALL LIGHT IN REACH
--- NOTE | 2018-08-12 13:15 | NUR ---
PT RESTING QUIETLY, DENIES PAIN OR NEEDS. R GROIN SOFT NO BLEEDING OR SWELLING NOTED. PEDAL PULSES PALPABLE. CALL LIGHT IN REACH. VSS.
--- NOTE | 2018-08-12 13:45 | NUR ---
PT PLACED ON BEDPAN, VOIDED SMALL AMT OF YELLOW URINE. REPOSITIONED FOR COMFORT. R GROIN DRESSING CDI NO BLEEDING OR HEMATOMA NOTED. CALL LIGHT IN REACH, DENIES PAIN OR OTHER NEEDS.
--- NOTE | 2018-08-12 14:15 | NUR ---
HOB ELEVATED SLIGHTLY, GROIN REMAINS SOFT NO BLEEDING OR SWELLING NOTED, DRESSING CDI. CALL LIGHT IN REACH, JUICE GIVEN BUT DOESN'T WANT SANDWICH AT THIS TIME.
--- NOTE | 2018-08-12 14:49 | NUR ---
PT AWAKE VISITING W FAMILY, TOLERATED SANDWICH W/O NAUSEA. GROIN REMAINS W/O BLEEDING OR HEMATOMA, DRESSING CDI. CALL LIGHT IN REACH, DENIES NEEDS.
--- NOTE | 2018-08-12 15:00 | NUR ---
IV REMOVED W CATH INTACT, MONITORS AND O2 REMOVED. GROIN SOFT NO BLEEDING OR SWELLING NOTED. PT UP TO DRESS FOR DISCHARGE.
--- NOTE | 2018-08-12 15:15 | NUR ---
DISCHARGE INSTRUCTIONS REVIEWED W PT, VERBALIZED UNDERSTANDING. PT DISCHARGED TO PRIVATE VEHICLE VIA WC.
--- NOTE | 2018-08-16 11:18 | HP ---
PATIENT: TYLER CONTRERAS MEDICAL RECORD: [id number] ACCOUNT: [id number] LOCATION:SUSAN : 45 ADMISSION DATE: 08/12/18 PCP: MARY CRENSHAW MD HISTORY AND PHYSICAL EXAMINATION ADMITTING DIAGNOSES: 1. Angina. 2. Coronary artery disease. 3. Recent percutaneous transluminal coronary angioplasty stent to left anterior descending with concomitant disease of right coronary artery. 4. Hypertension. 5. Hyperlipidemia. HISTORY OF PRESENT ILLNESS: Ms. Contreras presents with anginal symptomatology, found to have significant disease of the LAD and RCA, underwent successful PTCA stent of the LAD, is now brought back for PTCA stent of the RCA. PHYSICAL EXAMINATION: GENERAL APPEARANCE: Well-nourished, well-developed, appears stated age. Level of distress, comfortable. PSYCHIATRIC: Mental status, alert, normal affect. Orientation, oriented to time, place and person. EYES: Lids and conjunctiva, noninjected. No discharge, no pallor. ENT: Lips, teeth, gums, normal dentition. Oropharynx, no cyanosis, no pallor. NECK: Carotid arteries, bilateral normal upstroke, no bruits, no thrills. JUGULAR VEINS: No jugular venous pressure or distention. CERVICAL LYMPH NODES: Nontender, nonenlarged. THYROID: Not enlarged. Nontender. No nodules. LUNGS: Respiratory effort, unlabored. CHEST: Normal curvature. No thoracic deformity. No chest wall tenderness. Percussion, resonant. Auscultation, clear. No wheezes, no rales, no rhonchi. CARDIOVASCULAR: Precordial exam, nondisplaced. No heaves or pericardial thrills. Rate and rhythm, regular. Heart sounds, normal S1, normal S2. No S3, no gallop, no rub. Systolic murmur, not heard. Diastolic murmur, not heard. EXTREMITIES: No cyanosis, no edema. Peripheral pulses, full and equal in all extremities, except as noted. No bruits appreciated. ABDOMEN: Soft, nondistended. Normal aorta. No bruit. Nontender. No masses. Liver, nontender, no hepatomegaly. Spleen, nontender, no splenomegaly. MUSCULOSKELETAL: No joint tenderness. No joint swelling. No erythema. NEUROLOGICAL: Normal gait, normal strength, normal tone. SKIN: Warm and dry. OVERALL IMPRESSION: Anginal symptomatology with significant disease of the right coronary artery. We will proceed with transcatheter revascularization of the right coronary artery. TRANSINT:[id number] Voice Confirmation ID: [id number] DOCUMENT ID: [id number] HISTORY AND PHYSICAL [id number] TYLER CONTRERAS JEFFREY MD at 1118 CC: [id number] DICTATION DATE: 08/12/18 0948 SEGMENTAL PAVER INSTALLER: 08/12/18 1005 DEP CLI 08/12/[address] [address]
--- NOTE | 2018-08-16 11:18 | OP ---
PATIENT NAME: TYLER BAY MEDICAL RECORD: [id number] :45 LOCATION:D.CAT ADMISSION DATE: SURGEON: JAMAAL AVENDAÑO MD DATE OF OPERATION: 08/12/2018 DATE OF SERVICE: 08/12/2018 PROCEDURES: 1. PTCA stent RCA. 2. Selective coronary angiography. 3. Aortofemoral runoff. 4. Abdominal aortography. INDICATION: Claudication, peripheral vascular disease, angina and coronary artery disease. PROCEDURE IN DETAIL: After informed consent was obtained and after detailed description of risks, benefits as well as alternative therapies, the patient elected to proceed with angiogram and angioplasty. The right femoral area was prepped and draped in normal sterile fashion. Right femoral artery was cannulated via modified Seldinger technique with placement of 6-Latvian sheath. All catheters exchanged through this sheath. FINDINGS: Abdominal aortography was performed. The catheter was pulled down for aortofemoral runoff. Abdominal aortography reveals moderate disease of the abdominal aorta, but no flow limiting stenosis. No dissection or aneurysmal formation. RIGHT LEG: A. Iliac: The common internal and external iliacs have moderate irregularities, but no flow-limiting stenosis. B. Femoral system: The common femoral is widely patent. Deep femoral is widely patent. Superficial femoral has a long area that is stented. There is up to 50% in-stent restenosis, but no critical stenosis. C. Popliteal and infrapopliteal vessels are diffusely diseased, but there is preserved 3-vessel runoff to the foot. LEFT LEG: A. Iliac: The common internal and external iliacs have moderate irregularities, but no flow-limiting stenosis. B. Femoral system: The common and deep femoral are widely patent. Superficial femoral has a previously placed stent. This is patent; however, there is at least 70+ percent stenosis after the stent. C. Popliteal and infrapopliteal vessels are diffusely diseased, but there is 3-vessel runoff to the foot. D. Right coronary ostium has 80% stenosis. This was addressed with a 3.5 x 15-mm Sandy stent. OVERALL IMPRESSION: 1. Successful percutaneous transluminal coronary angioplasty stent of the right coronary artery ostium going from 80% initial stenosis to 0% residual stenosis. 2. Significant disease of the left superficial femoral artery. Previously placed stent in the right superficial femoral artery is overall patent. TRANSINT:[id number] Voice Confirmation ID: [id number] DOCUMENT ID: [id number] OPERATIVE REPORT [id number] TYLER BAY JEFFREY MD at 1118 CC: [id number] DICTATION DATE: 08/12/18 1101 SALES AND IN HOME DELIVERY SPECIALIST: 08/12/18 1136 DEP CLI 08/12/18 [place] [id number] [place] [id number]
== END 2018-08-12 15:15 | disposition home or self-care (01) ==
LOC: D.CATH 07:57
PROVIDERS: Internal Medicine Interventional Cardiology
DX: I25.119 Atherosclerotic heart disease of native coronary artery with unspecified angina pectoris (principal); I70.213 Atherosclerosis of native arteries of extremities with intermittent claudication, bilateral legs; T82.856A Stenosis of peripheral vascular stent, initial encounter; Z95.5 Presence of coronary angioplasty implant and graft; I10 Essential (primary) hypertension; E78.5 Hyperlipidemia, unspecified; Z01.812 Encounter for preprocedural laboratory examination

== ENCOUNTER 2018-08-17 09:09 | Outpatient (CLI) | payer MEDICARE, OTHER ==
[~2018-08-17] VITALS: Ht 158.8 cm; Wt 94.0 kg
--- NOTE | ~2018-08-17 | HEMODYNAMI ---
PATIENT:TYLER BAY MEDICAL RECORD: [id number] : 45 LOCATION:[facility] ADMISSION DATE: 08/17/18 Generatedon:08/17/201811:47 Patient name: TYLER BAY Patient #: [id number] SSN: : 1945 Date of study: 08/17/2018 Page: Of Hemodynamic Procedure Report Patient Data Patient Demographics Procedure consent was obtained First Name: TYLER Gender: Female Last Name: PHU : 1945 [facility] Initial: DEVI Age: 73 year(s) Patient #: [id number] Race: Additional ID: [id number] Contact details [address]: [address] [place] [address] rd State: [place] City: [place] Zip code: [address] Past Medical History Allergies Allergen Reaction Date Comments Reported Other allergy 07/27/2014 Codeine, Morphine Other allergy 07/22/2017 codeine, morpine Codeine 01/03/2018 Morphine 01/03/2018 Other allergy 08/12/2018 MORPHINE, CODEINE Morphine 08/17/2018 Codeine 08/17/2018 Admission Admission Data Admission Date: 08/17/2018 Admission Time: 9:09 Lab Results Lab Result Date: 08/12/2018 Lab Result Time: 0:00 Biochemistry Name Units Result Min Max BUN mg/dl 37 --(----)-* 7 18 Creatinine mg/dl 3.7 --(----)-* 0.6 1.3 CBC Name Units Result Min Max Hemoglobin g/dl 11.2 *-(----)-- 13.5 17.5 Procedure Procedure Types Cath Procedure Peripheral Cath Diagnostic Procedure Spray Pilot Peripheral Procedures COLOR MATCHER/STENT Peripheral Peripheral vascular Intervention Atherectomy Atherectomy Fem/Pop w/Stent/Plasty Procedure Description Procedure Date Procedure Date: 08/17/2018 Procedure Start Time: 11:13 Procedure End Time: 11:43 Procedure Staff Name Function Kei Flowers MD Performing Physician Carlos Nath RN Dye Range Operator Hal Pyle RT Monitor Vanessa Saunders RN Nurse Tricia Collins RT Scrub Procedure Data Cath Procedure Fluoroscopy Diagnostic fluoroscopy Total fluoroscopy Time: 8.1 time: 8.1 min min Diagnostic fluoroscopy Total fluoroscopy dose: 152 dose: 152 mGy mGy Contrast Material Contrast Material Type Amount (ml) Isovue 300 86 Entry Location Entry Primary Successful Side Size Upsize Upsize Entry Closure Succes sful Closure Location (Fr) 1 (Fr) 2 (Fr) Remarks Device Remarks Femoral Right 6 Fr 6 Fr 6 Fr Exoseal artery Short Long Short Diagnostic catheters Device Type Used For End Catheter Placement DIAGNOSTIC IMT 5Fr Catheter ([id number]) Procedure Complications No complications Procedure Medications Medication Administration Route Dosage Oxygen 6 l/min Lidocaine 2% added to field 20 Heparin Flush Bag added to field 2 bags (1000units/500ml NS) 0.9% NaCl I.V. 100 ml/hr Versed I.V. 1 mg Fentanyl I.V. 50 mcg Heparin Bolus I.V. 5000 units Versed I.V. 1 mg Fentanyl I.V. 50 mcg Fentanyl I.V. 50 mcg Hemodynamics Rest HGB: 11.2 (g/dl) Heart Rate: 89 (bpm) Snapshots Pre Cath Intra NCS Post Cath Vital Signs Time Heart Resp SPO2 etCO2 NIBP (mmHg) Rhythm Pain Sedation Rate (ipm) (%) (mmHg) Status Level (bpm) 10:17:27 87 13 95 0 172/86(133) NSR 0 (11) 10(A) , No pain 10:23:09 88 11 93 0 169/76(121) NSR 0 (11) 10(A) , No pain 10:28:22 82 20 96 16.5 161/73(126) NSR 0 (11) 10(A) , No pain 10:32:54 80 18 94 40.6 165/77(114) NSR 0 (11) 10(A) , No pain 10:37:25 86 31 93 28.6 138/68(101) NSR 0 (11) 10(A) , No pain 10:41:41 71 18 99 0 117/69(109) NSR 0 (11) 10(A) , No pain 10:46:56 75 11 98 30 128/66(97) NSR 0 (11) 10(A) , No pain 10:51:16 73 14 98 18 126/68(100) NSR 0 (11) 10(A) , No pain 10:55:38 75 18 99 36.1 126/65(98) NSR 0 (11) 10(A) , No pain 11:00:01 73 16 96 37.6 112/65(92) NSR 0 (11) 10(A) , No pain 11:04:13 78 16 96 39.8 121/75(105) NSR 0 (11) 10(A) , No pain 11:08:31 74 10 96 33 115/63(89) NSR 0 (11) 10(A) , No pain 11:12:45 75 16 93 32.3 92/71(89) NSR 0 (11) 10(A) , No pain 11:17:31 83 13 94 44.3 135/113(126) NSR 0 (11) 9(A) , No pain 11:22:30 89 15 95 16.5 135/67(0) NSR 0 (11) 9(A) , No pain 11:28:53 87 15 97 17.3 128/64(0) NSR 0 (11) 9(A) , No pain 11:35:15 86 17 97 20.3 Measuring NSR 0 (11) 9(A) , No pain 11:38:00 87 16 97 24.8 135/77(112) NSR 0 (11) 10(A) , No pain Medications Time Medication Route Dose Verified Delivered Reason Notes Effectiveness by by 10:38:13 Oxygen simple 6 Kei Buffie Per physician pt has mask l/min Lionel Saunders RN sleep apnea and is used to a mask when sleeping. 10:38:54 Lidocaine 2% added 20ml eKi Choudhury used for to vial Lionel Flowers MD procedure field 10:39:09 Heparin Flush added 2 Kei Kei used for Bag to bags Lionel Flowers MD procedure (1000units/500ml field NS) 10:39:38 0.9% NaCl I.V. 100 Keimarietta Bravoie Per physician ml/hr Lionel Saunders RN 11:12:34 Versed I.V. 1 mg Kei Mendez for sedation Lionel Saunders RN 11:12:42 Fentanyl I.V. 50 Kei Buffie for sedation mcg Lionel Saunders RN 11:16:06 Heparin Bolus I.V. 5000 Kei Mendez for verifi ed units Lionel Saunders RN anticoagulation with dr flowers 11:19:26 Versed I.V. 1 mg Kei Mendez for sedation Lionel Saunders RN 11:19:30 Fentanyl I.V. 50 Kei Mendez for sedation mcg Lionel Saunders RN 11:25:35 Fentanyl I.V. 50 Kei Mendez for sedation mcg Lionel Saunders RN Procedure Log Time Note 10:04:40 Time tracking: Regular hours (M-F 7:00 - 5:00) 10:04:44 Plan of Care:Hemodynamics will remain stable., Cardiac rhythm will remain stable., Comfort level will be maintained., Respiratory function will remain adequate., Patient/ family verbilizes understanding of procedure., Procedure tolerated without complication., Recovers from procedure without complications.. 10:04:48 Carlos Nath RN sent for patient. Start room use. 10:12:05 Patient received from Pre/Post Procedure Room to CCL 1 Alert and oriented. Tansferred to table in Supine position. 10:12:06 Warm blankets applied, and isabel hugger turned on for patient comfort. 10:12:07 Correct patient and procedure confirmed by team. 10:12:08 Signed procedure consent form obtained from patient. 10:12:09 ECG and BP/O2 sat monitors applied to patient. 10:12:10 Full Disclosure recording started 10:16:07 Vital chart was started 10:20:25 Rhythm: sinus rhythm 10:20:27 Baseline sample Acquired. 10:20:41 H&P Date Dictated: 08/12/2018 Within 30 days and on chart.. 10:20:43 Pre-procedure instructions explained to patient. 10:20:44 Pre-op teaching completed and patient verbalized understanding. 10:20:53 Family in waiting room. 10:20:59 Patient NPO since Midnight. 10:21:10 Patient allergic to Morphine 10:21:16 Patient allergic to Codeine 10:21:19 Is the patient allergic to Iodine/contrast media? No. 10:21:24 Is patient on blood thinner?Yes 10:21:26 ACC The patient was administered the following blood thiners within the last 24 hours: ACCPlavix 10:21:31 Patient diabetic? Yes. 10:21:33 If diabetic: On Metformin? No 10:21:35 ----Pre-sedation anethsthesia assessment.---- 10:21:37 Previous problem with sedation/anesthesia? No ? 10:21:38 Snore? Yes 10:21:40 Sleep apnea? Yes 10:21:41 Deviated septum? No 10:21:42 Opens mouth fully? Yes 10:21:44 Sticks out tongue? Yes 10:22:03 Airway obstruction? Yes COPD 10:22:06 Dentures? No ? 10:22:15 Pre procedure: right dorsailis pedis pulse 1+ Palpable, but thready & weak; easily obliterated 10:22:19 Pre procedure: left dorsailis pedis pulse Doppler 10:22:23 Patient pain scale 0/10 ?. 10:22:28 IV patent on arrival in right antecubital with 0.9% NaCl at 10ml/hr. 10:22:33 Lab results completed and on chart. 10:24:07 Bilateral groins area was prepped with chlora-prep and draped in sterile fashion 10:24:08 Alarms reviewed by R. N. 10:24:08 Sharps counted by scrub and verified by R.N. 10:29:06 ACIST Syringe (85858) opened to sterile field. 10:29:07 Bag Decanter (2002S) opened to sterile field. 10:29:07 Medline Cath Pack ([id number]) opened to sterile field. 10:29:08 DIAGNOSTIC WIRE .035 260cm J wire (371581) opened to sterile field. 10:29:12 ACIST Hand Control (83173) opened to sterile field. 10:29:12 ACIST Manifold (26782) opened to sterile field. 10:30:35 INFLATOR Merit BasixCompak (NZ7983) opened to sterile field. 10:30:36 GLIDE WIRE Super Stiff Angled 260cm (WE2382) opened to sterile field. 10:30:36 SHEATH 6FR Montgomery (WLM312) opened to sterile field. 10:30:37 SHEATH 6FR Destination (RSR01) opened to sterile field. 10:38:13 Oxygen 6 l/min simple mask was administered by Vanessa Saunders RN; Per physician; pt has sleep apnea and is used to a mask when sleeping. 10:38:54 Lidocaine 2% 20ml vial added to field was administered by Kei Flowers MD; used for procedure; 10:39:09 Heparin Flush Bag (1000units/500ml NS) 2 bags added to field was administered by Kei Flowers MD; used for procedure; 10:39:38 0.9% NaCl 100 ml/hr I.V. was administered by Vanessa Saunders RN; Per physician; 10:48:57 Zero performed for pressure channel P1 11:11:22 Physician arrived :: --------ALL STOP TIME OUT------ ::23 Final Timeout: patient, procedure, and site verified with staff and physician. All members of the team are in agreement. 11:11:25 Bilateral groins site verified by team. 11:11:29 Fire Safety Assessment: A--An alcohol-based skin anteseptic being used preoperatively., C--Open oxygen or nitrous oxide is being used., D--An ESU, laser, or fiber-optic light is being used. 11:11:33 Physical assessment completed. ASA score P 2 - A patient with mild systemic disease as per Kei Flowers MD. 11:11:37 Sedation plan: IV Moderate Sedation Medication:Versed, Fentanyl 11:12:34 Versed 1 mg I.V. was administered by Vanessa Saunders RN; for sedation; 11:12:42 Fentanyl 50 mcg I.V. was administered by Vanessa Saunders RN; for sedation; 11:13:00 Procedure started. 11:13:16 Local anesthetic to right femoral artery with Lidocaine 2% by Kei Flowers MD.INITIAL ACCESS ONLY 11:13:28 A 6 Fr Short sheath was inserted into the Right Femoral artery 11:13:37 5 Fr IMT guide catheter was inserted over the wire 11:13:44 GLIDE wire advanced. 11:13:50 Catheter removed. 11:13:58 Sheath upsized to a 6 Fr Long. 11:14:45 A DIAGNOSTIC IMT 5Fr Catheter ([id number]) was advanced over the wire and used for . 11:14:47 LASER Turbo-Power 2.0 atherectomy catheter (918932) opened to sterile field. 11:16:06 Heparin Bolus 5000 units I.V. was administered by Vanessa Saunders RN; for anticoagulation; verified with dr flowers 11:19:26 Versed 1 mg I.V. was administered by Vanessa Saunders RN; for sedation; 11:19:30 Fentanyl 50 mcg I.V. was administered by Vanessa Saunders RN; for sedation; 11:20:45 CHOICE PT Extra Support J 300cm guide wire ([id number]) opened to sterile field. 11:20:50 Wire removed. 11:20:54 CPTES wire advanced. 11:25:35 Fentanyl 50 mcg I.V. was administered by Vanessa Saunders RN; for sedation; 11:26:49 LASER ATHERECTOMY 11:27:22 Laser pass to Left Superficial Femoral with Fluence of 45 and Rate of 25. 11:30:21 MULTIPLE PASSED AT 45/25 11:35:01 Inflate balloon Inflation number: 1 A SABER 6.0 x 8 x 150 balloon ([id number]) was prepped and advanced across the Mid Superficial Femoral, Left, then inflated to 11 WYATT for 0:10 (min:sec). 11:35:46 Balloon removed over the wire. 11:35:52 SMART 6 X 60 X 120 stent ([id number]) was deployed across Mid Superficial Femoral, Left . 11:35:57 Stent catheter was removed intact over wire. 11:36:22 CHOICE PT Extra Support J 300cm guide wire ([id number]) opened to sterile field. 11:36:48 CPTES PRITESH wire advanced. 11:37:18 Inflation number: 2 The SABER 6.0 x 8 x 150 balloon ([id number]) was reinflated across the Mid Superficial Femoral, Left, to 13 WYATT for 0:10 (min:sec). 11:37:30 Inflation number: 3 The SABER 6.0 x 8 x 150 balloon ([id number]) was reinflated across the Mid Superficial Femoral, Left, to 13 WYATT for 0:11 (min:sec). 11:37:35 Balloon removed over the wire. 11:37:45 Wire removed. 11:37:56 Sheath upsized to a 6 Fr Short. 11:38:44 EXOSEAL 6Fr (EX600) opened to sterile field. 11:38:52 Contrast amount:Isovue 300 86ml. 11:40:21 Procedure type changed to Cath procedure, Peripheral Cath Diagnostic Procedure, Spray Pilot Peripheral Procedures, COLOR MATCHER/STENT Peripheral, Peripheral vascular Intervention, Atherectomy, Atherectomy Fem/Pop w/Stent/Plasty 11:40:29 Sheath removed intact; hemostasis achieved with Exoseal to the Right Femoral artery. 11:40:31 Procedure ended.(Physican Out) 11:40:45 Fluoroscopy time 08.10 minutes. 11:40:52 Flurop Dose total: 152 11:40:52 Fluoroscopy dose: 152 mGy 11:40:54 Sharps counted by scrub and verified by R.N. 11:40:55 Insertion/operative site no bleeding no hematoma. 11:40:58 Post-op/insertion site Right Femoral artery dressed using a 4 x 4 and Tegaderm. 11:41:02 Post right femoral artery:stable 11:41:04 Post Procedure Pulses reassessed and unchanged 11:41:06 Post procedure: right dorsailis pedis pulse 1+ Palpable, but thready & weak; easily obliterated. 11:41:10 Post procedure rhythm: sinus rhythm 11:41:11 Post procedure instruction explained to patient.Patient verbalizes understanding. 11:41:13 Procedure and supply charges have been captured, reviewed, submitted and are correct. 11:43:13 Procedure Complication : No complications 11:43:16 Vital chart was stopped 11:43:17 See physician's report for complete and final results. 11:43:50 Report given to Pre/Post Procedure Room. 11:43:53 Patient transfered to Pre/Post Procedure Room with Stretcher. 11:43:55 Procedure ended. 11:43:55 Full Disclosure recording stopped 11:43:58 End room use (Document Last) Intervention Summary Intervention Notes Time ActionType Lesion and Equipment Action# Pressure Duration Attributes Used 11:35:01 Inflate Mid SABER 6.0 x 1 11 00:10 balloon Superficial 8 x 150 Femoral, balloon Left ([id number]) 11:35:52 Deploy self Mid SMART 6 X 1 expanding Superficial 60 X 120 stent Femoral, stent Left ([id number]) 11:37:18 Reinflate Mid SABER 6.0 x 2 13 00:10 balloon Superficial 8 x 150 Femoral, balloon Left ([id number]) 11:37:30 Reinflate Mid SABER 6.0 x 3 13 00:11 balloon Superficial 8 x 150 Femoral, balloon Left ([id number]) Device Usage Item Name Manufacture Quantity Catalog Number [facility] Lot# / Charge Number Stock Stock Serial# Code ACIST Acist 1 38147 843670 367999 461493 20 Syringe Medical (81724) Systems Inc Bag Microtek 1 2001S 762853 29810 385899 5 Decanter Medical Inc. () Medline Medline 1 [id number] 845095 93517 097013 5 Cath Pack ([id number]) DIAGNOSTIC St Keyur 1 092122 771427 178216 816411 30 WIRE .035 260cm J wire (773496) ACIST Hand Acist 1 12917 600534 341504 543670 5 Control Medical (98000) Systems Inc ACIST Acist 1 78518 477458 896957 050833 5 Manifold Medical (42929) Systems Inc INFLATOR Merit 1 LJ1133 917282 062428 602723 15 ExTractApps Medical BasixCompak (ZE7531) GLIDE WIRE Terumo 1 FP3341 879960 727601 843087 5 Super Stiff Angled 260cm (DV6430) SHEATH 6FR Terumo 1 WTE936 589907 298924 532797 40 Montgomery (KKD374) SHEATH 6FR Terumo 1 RSR01 516991 78203 297833 5 Destination (RSR01) DIAGNOSTIC [place] 1 [id number] 881767 199352 88847 5 IMT 5Fr Scientific Catheter ([id number]) LASER Tha 1 420-050 781120 [id number] 205760 5 Helloworld 2.0 (128203) atherectomy catheter (789008) CHOICE PT [place] 2 [id number] 738883 20181220 508380 5 [id number] Extra Scientific [id number] Support J 300cm guide wire ([id number]) SABER 6.0 x Cardinal 1 [id number] 023642 762334 775133 5 8 x 150 Health balloon ([id number]) SMART 6 X Cardinal 1 [id number] 682380 291528 0 [id number] 60 X 120 Health stent ([id number]) EXOSEAL 6Fr Cardinal 1 EX600 049399 328793 540121 10 (EX600) Health Signature Audit [place] Stage Time Signature Unsigned Intra-Procedure 08/17/2018 Hal POLO(Andrea) 11:47:21 AM Signatures Monitor : Hal Pyle RT Signature : Date : Time : [id number] [place] [address]
[2018-08-17 09:44] LABS: BASOPHILS 0.2 % (0-2); EOSINOPHILS 1.3 % (0-7); HEMATOCRIT 37.9 % (36.0-48.0); IMMATURE GRANULOCYTES 0.4 % (0-5); LYMPHOCYTES 36.9 % (15-50); MCH 31.3 pg (26.0-34.0); MCHC 31.7 g/dL (31.0-37.0); MCV 98.7 fL (80.0-100.0); MEAN PLATELET VOLUME 10.9 fL (7.4-10.4); MONOCYTES 6.9 % (2-11); NEUTROPHILS 54.3 % (40-80); PLATELET COUNT 243 10x3/uL (130-400); RBC 3.84 10x6/uL (4.00-5.40); RDW 14.8 % (11.5-14.5); WBC 12.9 10x3/uL (4.8-10.8)
[2018-08-17 09:47] VITALS: BP 163/76; Ht 158.8 cm; Wt 94.0 kg
[2018-08-17 10:12] LABS: ANION GAP 16.2 mmol/L (8-16); CALCIUM 9.3 mg/dL (8.5-10.1); CARBON DIOXIDE 24.4 mmol/L (21.0-32.0); CREATININE - SERUM 3.9 mg/dL (0.6-1.3); POTASSIUM - SERUM 3.6 mmol/L (3.5-5.1)
--- NOTE | 2018-08-17 12:07 | NUR ---
RIGHT GROIN DRESSING C/D/I. NO S/S OF HEMATOMA NOTED. RIGHT PEDAL PULSE PALPABLE. PT RESTING COMFORTABLY. NO NEEDS AT THIS TIME. VSS.
--- NOTE | 2018-08-17 12:40 | NUR ---
PT RESTING COMFORTABLY. VSS. RIGHT GROIN DRESSING C/D/I. NO S/S OF HEMATOMA NOTED. BILATERAL PEDAL PULSES PALPABLE.
--- NOTE | 2018-08-17 13:00 | NUR ---
PT RESTING COMFORABLY. VSS. RIGHT GROIN DRESSING C/D/I. BILATERAL PEDAL PULSES PALPABLE.
--- NOTE | 2018-08-17 13:30 | NUR ---
PT RESTING COMFORTABLY. RIGHT GROIN DRESSING C/D/I. NO S/S OF HEMATOMA NOTED. VSS. BILATERAL PEDAL PULSES PALPABLE.
--- NOTE | 2018-08-17 14:20 | NUR ---
PT RESTING COMFORTABLY. VSS. RIGHT GROIN DRESSING C/D/I. NO S/S OF HEMATOMA NOTED. CALL LIGHT WITHIN REACH. BILATERAL PEDAL PULSES PALPABLE.
--- NOTE | 2018-08-17 14:48 | NUR ---
HEAD OF BED INC TO 30 DEGREES. VSS. RIGHT GROIN DRESSING C/D/I. NO S/S OF HEMATOMA NOTED. PT GIVEN WATER REQUESTED. DOES NOT WANT ANY FOOD AT THIS TIME. REPORTS "I WILL GET SOMETHING WHEN I LEAVE HERE".
--- NOTE | 2018-08-17 15:15 | NUR ---
RIGHT GROIN DRESSING C/D/I. NO S/S OF HEMATOMA NOTED. RIGHT AC PIV D/C'D WITH CATH TIP INTACT. PT TOLERATED WELL. PT INSTRUCTED TO GET UP AND GET DRESSED.
--- NOTE | 2018-08-17 15:29 | OP ---
PATIENT NAME: TYLER BAY MEDICAL RECORD: [id number] :45 LOCATION:D.CAT ADMISSION DATE: SURGEON: JAMAAL AVENDAÑO MD DATE OF OPERATION: 08/17/2018 PROCEDURES: 1. Laser atherectomy SFA, left. 2. COMMODITY MANAGER stent, SFA, left. 3. Unilateral extremity angiography. INDICATION: Peripheral vascular disease and claudication. PROCEDURE IN DETAIL: After informed consent was obtained and after a detailed description of the risks, benefits as well as alternative therapies, the patient elected to proceed with angiogram and angioplasty. The right femoral area was prepped and draped in normal sterile fashion. Right femoral artery was cannulated via modified Seldinger technique with placement of a 6-[place] Islander rexobh-lqn-zmem sheath. All catheters were exchanged through this sheath. FINDINGS: The left SFA has a previously placed stent. There is 70% in-stent restenosis and greater than 80% after the previously placed stent. We did laser atherectomy for the in-stent restenosis. Peripheral laser Turbo catheter was used. Multiple passes were made at 45/25. We then ballooned this, this yielded suboptimal result after the stent with severe intimal dissection. Stenting was undertaken with a 6 mm x 60 SMART stent. Result was 0% residual stenosis. OVERALL IMPRESSION: Successful laser atherectomy, COMMODITY MANAGER stent of the left SFA going from greater than 80% initial stenosis to 0% residual. TRANSINT:[id number] Voice Confirmation ID: [id number] DOCUMENT ID: [id number] JAMAAL AVENDAÑO MD at 1529 CC: [id number] DICTATION DATE: 08/17/18 1144 CEMENT BASED MATERIALS PUMP TENDER: 08/17/18 1213 [facility] [address] [id number]
--- NOTE | 2018-08-17 15:40 | NUR ---
DISCUSSED DISCHARGE INSTRUCTIONS WITH PT. SHE VOICED UNDERSTANDING. RIGHT GROIN DRESSING C/D/I. NO S/S OF HEMATOMA.
--- NOTE | 2018-08-17 15:45 | NUR ---
PT TAKEN TO RESTROOM BY WHEELCHAIR. VOIDED WITHOUT DIFFICULTY. TAKEN OUT TO VEHICLE BY WHEELCHAIR. NO S/S OF DISTRESS NOTED. ALL BELONGINGS AND PAPERWORK IN HAND.
== END 2018-08-17 15:45 | disposition home or self-care (01) ==
LOC: D.CATH 09:09
PROVIDERS: ATTEND Internal Medicine Interventional Cardiology
DX: I70.212 Atherosclerosis of native arteries of extremities with intermittent claudication, left leg (principal); T82.856A Stenosis of peripheral vascular stent, initial encounter; Z01.812 Encounter for preprocedural laboratory examination

== ENCOUNTER 2019-01-02 21:53 | Inpatient (IN) | payer MEDICARE, OTHER ==
[~2019-01-02] VITALS: Ht 158.8 cm; Wt 71.9 kg
--- NOTE | ~2019-01-02 | HEMODYNAMI ---
PATIENT:TYLER BAY MEDICAL RECORD: [id number] : 45 LOCATION:D. D.2116 ADMISSION DATE: 01/02/19 Generatedon:01/03/201914:18 Patient name: TYLER BAY Patient #: [id number] SSN: : 1945 Date of study: 01/03/2019 Page: Of Hemodynamic Procedure Report Patient Data Patient Demographics Procedure consent was obtained First Name: TYLER Gender: Female Last Name: PHU : 1945 Middle Initial: DEVI Age: 74 year(s) Patient #: [id number] Race: Additional ID: [id number] Contact details [address]: [address] [place] [address] rd State: [place] City: [place] Zip code: [address] Past Medical History Allergies Allergen Reaction Date Comments Reported Other allergy 07/27/2014 Codeine, Morphine Other allergy 07/22/2017 codeine, morpine Codeine 01/03/2018 Morphine 01/03/2018 Other allergy 08/12/2018 MORPHINE, CODEINE Morphine 08/17/2018 Codeine 08/17/2018 Other allergy 01/03/2019 MORPHINE, TAPE, CODEINE Admission Admission Data Admission Date: 01/02/2019 Admission Time: 23:55 Admit Source: Emergency department Room #: D.2116 Procedure Procedure Types Cath Procedure Diagnostic Procedure LHC LHC w/Coronaries Procedure Description Procedure Date Procedure Date: 01/03/2019 Procedure Start Time: 14:02 Procedure End Time: 14:17 Procedure Staff Name Function Yaakov Perry MD Performing Physician Nae Fletcher RT Monitor Kalpesh Bach RT Scrub Vanessa Saunders RN Nurse Procedure Data Cath Procedure Fluoroscopy Diagnostic fluoroscopy Total fluoroscopy Time: 2.2 time: 2.2 min min Diagnostic fluoroscopy Total fluoroscopy dose: 572 dose: 572 mGy mGy Contrast Material Contrast Material Type Amount (ml) Isovue 300 67 Entry Location Entry Primary Successful Side Size Upsize Upsize Entry Closure Succes sful Closure Location (Fr) 1 (Fr) 2 (Fr) Remarks Device Remarks Femoral Right 5 Fr Exoseal artery Estimated blood loss: 5 ml Diagnostic catheters Device Type Used For End Catheter Placement MULTIPACK JL 4.0 5Fr Procedure catheter DIAGNOSTIC JL 5 5Fr Procedure catheter ([id number]) MULTIPACK 3DRC 5Fr Procedure catheter MULTIPACK Pigtail 5 Fr Procedure catheter Procedure Complications No complications Procedure Medications Medication Administration Route Dosage Oxygen etCO2 Nasal cannula 2 l/min Lidocaine 2% added to field 20 Heparin Flush Bag added to field 2 bags (1000units/500ml NS) 0.9% NaCl I.V. 100 ml/hr Versed I.V. 1 mg Fentanyl I.V. 50 mcg Versed I.V. 1 mg Hemodynamics Rest Heart Rate: 105 (bpm) Pressure Samples Time Site Value (mmHg) Purpose Heart Use Rate(bpm) 14:10 LV 123/5,9 Snapshot 105 Gradients Valve Time Site Site Mean SEP/DFP Peak To Heart Use 1 2 (mmHg) (sec/min) Peak Rate (mmHg) (bpm) Aortic 14:10 LV AO 76 Snapshots Pre Cath Intra NCS Post Cath Vital Signs Time Heart Resp SPO2 etCO2 NIBP (mmHg) Rhythm Pain Sedation Rate (ipm) (%) (mmHg) Status Level (bpm) 13:57:26 78 12 98 0 Measuring NSR 0 (11) 10(A) , No pain 13:58:44 78 14 97 0 192/89(138) NSR 0 (11) 10(A) , No pain 14:03:37 69 12 99 0 153/67(128) NSR 0 (11) 9(A) , No pain 14:08:16 73 18 98 0 152/71(113) NSR 0 (11) 9(A) , No pain 14:12:48 76 19 98 0 151/81(128) NSR 0 (11) 10(A) , No pain Medications Time Medication Route Dose Verified Delivered Reason Notes Eff ectiveness by by 13:55:09 Oxygen etCO2 2 Yaakov Mendez used for Nasal l/min [facility] Antonio Saunders user acceptance tester cannula 13:55:15 Lidocaine 2% added 20ml Yaakov Nuno for local to vial [facility] anesthetic field MD TERRELL 13:55:21 Heparin Flush added 2 Yaakov Yaakov used for Bag to bags [facility] procedure (1000units/500ml field MD TERRELL NS) 13:55:29 0.9% NaCl I.V. 100 Yaakov Mendez Per ml/hr [facility] Antonio Saunders RN physician 14:00:31 Versed I.V. 1 mg Yaakov Mendez for [facility] Antonio Saunders RN sedation 14:00:37 Fentanyl I.V. 50 Yaakov Mendez for mcg [facility] Antonio Saunders RN sedation 14:06:59 Versed I.V. 1 mg Yaakov Mendez for [facility] Antonio Saunders RN sedation Procedure Log Time Note 13:41:41 Informed consent obtained and on chart 13:41:44 Admit Source: Emergency department 13:41:55 Diagnostic Cath status Urgent 13:41:57 Vanessa Saunders RN sent for patient. Start room use. 13::57 Time tracking: Regular hours (M-F 7:00 - 5:00) 13:42:01 Plan of Care:Hemodynamics will remain stable., Cardiac rhythm will remain stable., Comfort level will be maintained., Respiratory function will remain adequate., Patient/ family verbilizes understanding of procedure., Procedure tolerated without complication., Recovers from procedure without complications.. 13:43:52 Patient received from Med II to CCL 1 Alert and oriented. Tansferred to table in Supine position. 13:43:53 Warm blankets applied, and isabel hugger turned on for patient comfort. 13:43:54 Correct patient and procedure confirmed by team. 13:43:54 ECG and BP/O2 sat monitors applied to patient. 13:43:56 Pre-procedure instructions explained to patient. 13:43:57 Pre-op teaching completed and patient verbalized understanding. 13:55:09 Oxygen 2 l/min etCO2 Nasal cannula was administered by Vanessa Saunders RN; used for procedure; 13:55:15 Lidocaine 2% 20ml vial added to field was administered by Yaakov Perry MD; for local anesthetic; 13:55:21 Heparin Flush Bag (1000units/500ml NS) 2 bags added to field was administered by Yaakov Perry MD; used for procedure; 13:55:29 0.9% NaCl 100 ml/hr I.V. was administered by Vanessa Saunders RN; Per physician; 13:55:38 Vital chart was started 13:55:42 Rhythm: sinus rhythm 13:55:43 Full Disclosure recording started 13:55:46 Family in patients room. 13:55:47 Patient NPO since Midnight. 13:56:00 Patient allergic to Other allergyMORPHINE, TAPE, CODEINE 13:56:02 Is patient on blood thinner?Yes 13:56:05 ACC The patient was administered the following blood thiners within the last 24 hours: ACCPlavix 13:56:07 Patient diabetic? No. 13:56:10 Previous problem with sedation/anesthesia? No ? 13:56:11 Snore? Yes 13:56:12 Sleep apnea? No 13:56:15 Deviated septum? No 13:56:16 Opens mouth fully? Yes 13:56:17 Sticks out tongue? Yes 13:56:21 Airway obstruction? Yes COPD 13:56:24 Dentures? No ? 13:56:26 Pre procedure: right dorsailis pedis pulse 1+ Palpable, but thready & weak; easily obliterated 13:56:29 Patient pain scale 0/10 ?. 13:56:37 IV patent on arrival in left hand with 0.9% NaCl at O. 13:57:27 Lab results completed and on chart. 13:57:29 Right groin area was prepped with chlora-prep and draped in sterile fashion 13:57:31 Alarms reviewed by R. N. 13:57:31 Sharps counted by scrub and verified by R.N. 13:57:33 --------ALL STOP TIME OUT------ 13:57:33 Final Timeout: patient, procedure, and site verified with staff and physician. All members of the team are in agreement. 13:57:36 Right groin site verified by team. 13:57:39 Fire Safety Assessment: A--An alcohol-based skin anteseptic being used preoperatively., C--Open oxygen or nitrous oxide is being used., D--An ESU, laser, or fiber-optic light is being used. 13:57:43 Physical assessment completed. ASA score P 2 - A patient with mild systemic disease as per Yaakov Perry MD. 13:57:46 5) <15 or on dialysis Very severe, or end stage kidney failure. 13:57:49 Maximum allowable contrast does (3.7 X eGFR X 0.75)31 ml. 13:57:53 Sedation plan: IV Moderate Sedation Medication:Versed, Fentanyl 14:00:31 Versed 1 mg I.V. was administered by Vanessa Saunders RN; for sedation; 14:00:37 Fentanyl 50 mcg I.V. was administered by Vanessa Saunders RN; for sedation; 14:00:50 Procedure started. 14:02:16 Local anesthetic to right femoral artery with Lidocaine 2% by Yaakov Perry MD.INITIAL ACCESS ONLY 14:02:18 Use device set Femoral Dx 14:02:19 ACIST Syringe (61879) opened to sterile field. 14:02:19 Bag Decanter (2002S) opened to sterile field. 14:02:20 ACIST Hand Control (81571) opened to sterile field. 14:02:20 ACIST Manifold (66124) opened to sterile field. 14:02:22 Tegaderm 4 x 4 (1626W) opened to sterile field. 14:02:23 Medline Cath Pack ([id number]) opened to sterile field. 14:02:24 DIAGNOSTIC Multipack 5Fr catheter set ([id number]) opened to sterile field. 14:02:26 EMERALD Guide Wire (502-608) opened to sterile field. 14:02:27 SHEATH 5FR [place] (VSR742) opened to sterile field. 14:02:35 Zero performed for pressure channel P1 14:03:27 A 5 Fr sheath was inserted into the Right Femoral artery 14:03:49 A MULTIPACK JL 4.0 5Fr catheter was advanced over the wire and used for Procedure. 14:05:06 UNABLE TO ENGAGE LCA 14:05:17 A DIAGNOSTIC JL 5 5Fr catheter ([id number]) was advanced over the wire and used for Procedure. 14:06:59 Versed 1 mg I.V. was administered by Vanessa Saunders RN; for sedation; 14:07:17 LCA angiography performed. 14:07:28 Catheter removed. 14:07:38 A MULTIPACK 3DRC 5Fr catheter was advanced over the wire and used for Procedure. 14:08:52 RCA angiography performed. 14:08:57 Catheter removed. 14:09:05 A MULTIPACK Pigtail 5 Fr catheter was advanced over the wire and used for Procedure. 14:10:09 LV gram done using PATEL 14:10:12 Injector settings: Ml/sec: 10, Volume: 20, 14:10:25 LV hemodynamics recorded. 14:10:37 EF : 55 % 14:10:39 Catheter removed. 14:11:01 EXOSEAL 5Fr (EX500) opened to sterile field. 14:11:51 Sheath removed intact; hemostasis achieved with Exoseal to the Right Femoral artery. 14:12:02 Procedure ended.(Physican Out) 14:12:17 Fluoroscopy time 02.20 minutes. 14:12:21 Flurop Dose total: 572 14:12:21 Fluoroscopy dose: 572 mGy 14:12:25 Contrast amount:Isovue 300 67ml. 14:12:26 Sharps counted by scrub and verified by R.N. 14:12:29 Post-op/insertion site Right Femoral artery dressed using a 4 x 4 and Tegaderm. 14:12:32 Post-procedure physical assessment completed. ASA score P 3 - A patient with severe systemic disease as per Yaakov Perry MD. 14:12:35 Post procedure rhythm: sinus rhythm 14:12:39 Estimated blood loss: 5 ml 14:12:40 Post procedure instruction explained to patient.Patient verbalizes understanding. 14:12:41 Patient needs reinforcement of post procedure teaching. 14:13:37 Procedure and supply charges have been captured, reviewed, submitted and are correct. 14:13:39 Procedure Complication : No complications 14:17:13 Vital chart was stopped 14:17:13 See physician's report for complete and final results. 14:17:18 Report given to [facility]. 14:17:20 Patient transfered to [facility] with Bed. 14:17:24 Procedure ended. 14:17:24 Full Disclosure recording stopped 14:17:28 End room use (Document Last) Device Usage Item Name Manufacture Quantity Catalog Hospital Part Current Minimal L ot# / Number Charge Number Stock Stock Serial# Code ACIST Acist 1 42959 810655 242390 122489 20 Syringe Medical (94429) Systems Inc Bag Microtek 1 714340 36155 124450 5 Decanter Medical Inc. () ACIST Hand Acist 1 91706 865348 159154 821599 5 Control Medical (41020) Systems Inc ACIST Acist 1 50838 215948 245328 309446 5 Manifold Medical (10228) Systems Inc Tegaderm 4 3M 1 1626W 838168 610894 377042 5 x 4 (1626W) Medline Medline 1 [id number] 337896 22155 943075 5 Cath Pack (FEHT62050) DIAGNOSTIC Cardinal 1 KP2814 548236 78697 175942 30 Multipack Health 5Fr catheter set (KJ7625) EMERALD Cardinal 1 502-477 780227 337623 457666 5 Guide Wire Health (502-104) SHEATH 5FR Terumo 1 SWK215 011950 746475 262917 5 [place] (CUQ655) MULTIPACK Cardinal 1 441904 5 JL 4.0 5Fr Health catheter DIAGNOSTIC Cardinal 1 045144Y 969281 926105 111886 5 JL 5 5Fr Health catheter (849519T) MULTIPACK Cardinal 1 625310 5 3DRC 5Fr Health catheter MULTIPACK Cardinal 1 331662 5 Pigtail 5 Health Fr catheter EXOSEAL 5Fr Cardinal 1 EX500 582903 160698 482736 10 (EX500) Health Signature Audit [place] Stage Time Signature Unsigned Intra-Procedure 01/03/2019 Nae Fletcher 2:18:28 PM RT(R) Signatures Performing Physician : Signature : Yaakov Perry MD Date : Time : Monitor : Nae Fletcher Signature : RT Date : Time : Nurse : Vanessa Saunders RN Signature : Date : Time : [place] [address] [place] [address]
--- NOTE | 2019-01-02 22:17 | NUR ---
BLOOD DRAWN VIA IV START. SENT TO LAB.
[2019-01-02 22:18] LABS: BASOPHILS 0.1 % (0-2); EOSINOPHILS 1.2 % (0-7); HEMATOCRIT 36.7 % (36.0-48.0); HEMOGLOBIN 12.4 g/dL (12-16); IMMATURE GRANULOCYTES 0.5 % (0-5); LYMPHOCYTES 36.6 % (15-50); MCHC 33.8 g/dL (31.0-37.0); MCV 94.8 fL (80.0-100.0); MEAN PLATELET VOLUME 11.5 fL (7.4-10.4); MONOCYTES 6.8 % (2-11); NEUTROPHILS 54.8 % (40-80); PLATELET COUNT 272 10x3/uL (130-400); RBC 3.87 10x6/uL (4.00-5.40); RDW 14.1 % (11.5-14.5); WBC 14.5 10x3/uL (4.8-10.8)
[2019-01-02 22:23] VITALS: BP 195/80
--- NOTE | 2019-01-02 22:23 | NUR ---
PAIN PRIOR TO 1ST NITRO / BP 195/80 HR78
--- NOTE | 2019-01-02 22:29 | NUR ---
PAIN 4/10 AFTER FIRST NITRO HR:84
[2019-01-02 22:30] LABS: APTT 28.4 SECONDS (22.8-39.4); INR 1.03 (0.85-1.17)
[2019-01-02 22:35] VITALS: BP 171/75
[2019-01-02 22:39] LABS: ALBUMIN 3.4 g/dL (3.4-5.0); ALKALINE PHOSPHATASE 115 U/L (46-116); ALT (SGPT) 18 U/L (10-68); BILIRUBIN - TOTAL 0.41 mg/dL (0.2-1.3); CALC OSMOLALITY 283 mosm/kg (275-300); CALCIUM 8.7 mg/dL (8.5-10.1); CARBON DIOXIDE 21.2 mmol/L (21.0-32.0); CHLORIDE - SERUM 100 mmol/L (98-107); CREATININE - SERUM 4.2 mg/dL (0.6-1.3); GLUCOSE 151 mg/dL (74-106); POTASSIUM - SERUM 3.9 mmol/L (3.5-5.1); PROTEIN - SERUM 8.6 g/dL (6.4-8.2); SODIUM 136 mmol/L (136-145); UREA NITROGEN 39 mg/dL (7-18); eGFR NON AFRICAN AMERICAN 11 mL/min (90-120)
[2019-01-02 22:46] LABS: CKMB 1.5 U/L (0.0-3.6); CREATINE KINASE 117 UL (21-215); MAGNESIUM - SERUM 1.7 mg/dL (1.8-2.4); TROPONIN-I < 0.017 ng/mL (0.000-0.060)
[2019-01-02 23:07] VITALS: BP 149/76
--- NOTE | 2019-01-02 23:09 | NUR ---
PAIN LEVEL IS 1/10 AT THIS TIME. VSS
--- NOTE | 2019-01-03 00:55 | NUR ---
ARIVED FROM ER VIA STRETCHER TO BED LOCKED AND LOW CALL LIGHT IN REACH SR X2 PT EDUCATED ON USING CALL LIGHT TO AND TO ASK FOR ASSIST STANDING MED REQ AND SUICDE SCREENING DONE COMPUTER LOCK UP IS PREVENTING HISTORY TO BE DONE LCTA SKIN WARM AND DRY NTG PAST TO CHEST WALL PT DENIES NEEDS OR CP AT THIS TIME PT WILL REMAIN NPO VS 97.9 145/78 77 18 97% ON 2L
[2019-01-03 01:47] VITALS: BP 145/78; BMI 37.3
[2019-01-03 04:00] VITALS: BP 141/62
[2019-01-03 05:15] LABS: BASOPHILS 0.3 % (0-2); EOSINOPHILS 0.8 % (0-7); HEMATOCRIT 35.5 % (36.0-48.0); HEMOGLOBIN 11.7 g/dL (12-16); IMMATURE GRANULOCYTES 0.2 % (0-5); MCH 31.5 pg (26.0-34.0); MCV 95.7 fL (80.0-100.0); MEAN PLATELET VOLUME 11.3 fL (7.4-10.4); MONOCYTES 6.3 % (2-11); NEUTROPHILS 56.4 % (40-80); RBC 3.71 10x6/uL (4.00-5.40)
[2019-01-03 05:28] LABS: PLATELET COUNT 213 10x3/uL (130-400)
[2019-01-03 05:52] LABS: ALBUMIN 3.2 g/dL (3.4-5.0); ALKALINE PHOSPHATASE 99 U/L (46-116); ALT (SGPT) 14 U/L (10-68); BILIRUBIN - TOTAL 0.22 mg/dL (0.2-1.3); CALC OSMOLALITY 288 mosm/kg (275-300); CALCIUM 8.7 mg/dL (8.5-10.1); CARBON DIOXIDE 23.2 mmol/L (21.0-32.0); CHLORIDE - SERUM 104 mmol/L (98-107); CKMB 1.5 U/L (0.0-3.6); CREATINE KINASE 54 UL (21-215); CREATININE - SERUM 4.1 mg/dL (0.6-1.3); GLUCOSE 119 mg/dL (74-106); PROTEIN - SERUM 7.4 g/dL (6.4-8.2); SODIUM 140 mmol/L (136-145); TROPONIN-I < 0.017 ng/mL (0.000-0.060); UREA NITROGEN 39 mg/dL (7-18); eGFR NON AFRICAN AMERICAN 11 mL/min (90-120)
[2019-01-03 06:00] LABS: POTASSIUM - SERUM 3.3 mmol/L (3.5-5.1)
[2019-01-03 08:00] VITALS: BP 154/76
--- NOTE | 2019-01-03 09:14 | NUR ---
MARLON SCDS ON. CONSENTS SIGNED FOR [facility]. WILL CONT. PLAN OF CARE.
[2019-01-03 12:00] VITALS: BP 152/69
[2019-01-03 13:47] VITALS: BMI 37.2
--- NOTE | 2019-01-03 13:49 | NUR ---
PRE-OPS GIVEN. TO COMMUTATOR REPAIRER BY BED.
[2019-01-03 15:45] VITALS: BP 157/64
--- NOTE | 2019-01-03 16:34 | NUR ---
BED REST UP. GROIN STABLE.
--- NOTE | 2019-01-03 19:23 | NUR ---
RESUMING PATIENT CARE. PATIENT RESTING COMFORTABLY IN BED. RESPIRATIONS ARE EVEN AND UNLABORED. NO S/S OF DISTRESS. CALL LIGHT WITHIN REACH. WILL CPOC.
[2019-01-03 20:00] VITALS: BP 162/73
[2019-01-04] VITALS: BP 156/67
[2019-01-04 04:00] VITALS: BP 150/58
[2019-01-04 06:13] LABS: BASOPHILS 0.2 % (0-2); HEMATOCRIT 35.8 % (36.0-48.0); HEMOGLOBIN 11.5 g/dL (12-16); IMMATURE GRANULOCYTES 0.6 % (0-5); LYMPHOCYTES 26.6 % (15-50); MCH 31.9 pg (26.0-34.0); MCHC 32.1 g/dL (31.0-37.0); MEAN PLATELET VOLUME 11.1 fL (7.4-10.4); MONOCYTES 9.2 % (2-11); NEUTROPHILS 62.4 % (40-80); PLATELET COUNT 200 10x3/uL (130-400); RBC 3.61 10x6/uL (4.00-5.40); RDW 14.4 % (11.5-14.5); WBC 11.3 10x3/uL (4.8-10.8)
[2019-01-04 06:25] LABS: MCV 99.2 fL (80.0-100.0)
[2019-01-04 06:51] LABS: ANION GAP 15.9 mmol/L (8-16); CALCIUM 8.7 mg/dL (8.5-10.1); CARBON DIOXIDE 22.2 mmol/L (21.0-32.0); CHOL - HDL RATIO 2.6 ratio (2.3-4.1); CREATININE - SERUM 4.4 mg/dL (0.6-1.3); LDL-HDL RATIO 1.5 ratio (1.5-3.5); POTASSIUM - SERUM 4.1 mmol/L (3.5-5.1)
[2019-01-04 09:55] VITALS: BP 119/100
[2019-01-04 12:53] VITALS: BP 131/56
--- NOTE | 2019-01-04 14:03 | OP ---
PATIENT NAME: TYLER BAY MEDICAL RECORD: [id number] :45 LOCATION:D.M2 D.2116 ADMISSION DATE:01/03/19 SURGEON: PAMELA TORRES MD DATE OF OPERATION: 01/03/2019 PROCEDURE: Left heart catheterization, selective coronary angiography, right femoral artery approach. CATHETERS: A 5-Peruvian sheath, 5/4 left and right Myron, 5/4 pig. The procedure was well tolerated. The patient was returned to mena. Sheath was removed. Adequate hemostasis was obtained as well as ExoSeal. FINDINGS: Left ventriculography in 30-degree PATEL view: Normal wall motion and normal systolic function. CORONARY ANATOMY: LEFT MAIN: Left main is free of disease. LAD: Area of previous stenting is widely patent. No evidence of restenosis. No progression of knik disease. CIRCUMFLEX: Free of disease. RIGHT CORONARY ARTERY: Again, widely patent with no evidence of restenosis and no evidence of progression of disease. IMPRESSION: No evidence of stent restenosis. Normal LV function. TRANSINT:[id number] Voice Confirmation ID: [id number] DOCUMENT ID: [id number] PAMELA TORRES MD at 1403 CC: [id number] DICTATION DATE: 01/03/19 1423 GUNITE MIXER: 01/03/19 1833 ADM IN [facility] [address] [id number]
--- NOTE | 2019-01-04 14:03 | CN ---
PATIENT NAME:TYLER BAY MEDICAL RECORD: [id number] : 45 LOCATION:D. D.2116 ADMIT DATE: 01/03/19 ACCOUNT: [id number] CONSULTING PHYSICIAN: PAMELA TORRES MD REFERRING PHYSICIAN: EV PAULINO MD DATE OF CONSULTATION: 01/03/2019 HISTORY OF PRESENT ILLNESS: A 74-year-old female with history of coronary artery disease, status post intervention approximately 6 months ago, onset yesterday of chest tightness and pressure consistent with angina, waxing and waning course, worsened. She presented to the ER, again relieved with nitro, has had some mild symptomatology since admission despite nitrates and calcium channel ana luisa. We are asked to see her concerning her cardiovascular status. PAST MEDICAL HISTORY: Includes: 1. History of hypertension. 2. Coronary artery disease as described above. 3. Diabetes mellitus. 4. Dyslipidemia. 5. Chronic renal insufficiency. MEDICATIONS: Include Plavix 75 every day, amlodipine 10 every day, pravastatin 40 every day, aspirin 81 every day, Lexapro 20 every day, Lasix 40 every day, insulin per scale, Synthroid 100 mcg every day. ALLERGIES: MORPHINE, CODEINE, ADHESIVE TAPE. SOCIAL HISTORY: Nonsmoker, nondrinker. Easily takes care of all her ADLs, does try to walk on a regular basis. REVIEW OF SYSTEMS: The patient reports easy bruising but reports no swollen glands. The patient reports no fever, no night sweats, no significant weight gain, no significant weight loss. No significant exercise tolerance. The patient reports no dry eyes, no irritation, no vision change. Patient reports no difficulty hearing and no ear pain. Patient reports no frequent nose bleeds or nose and sinus problems. Patient reports on arm pain on exertion. No shortness of breath while lying down. No history of heart murmur. Patient reports no cough, no wheezing or coughing up blood. Patient reports no abdominal pain, no vomiting. Normal appetite. No diarrhea and not vomiting blood. No nausea and no constipation. Patient reports no incontinence. No difficulty urinating. No hematuria. No increased frequency. Patient reports no muscle aches. No weakness, no arthralgias, no back pain. No swelling of the extremities. Patient reports no abnormal mole, no jaundice, no rashes. Reports no loss of consciousness. No weakness and no numbness. No seizures, dizziness, or headaches. The patient reports no depression, no sleep disturbance, feeling safe in a relationship and no alcohol abuse. Patient reports on fatigue. Reports no runny nose or sinus pressure. No itching, no hives, and no frequent sneezing. PHYSICAL EXAMINATION: GENERAL: No acute distress. VITAL SIGNS: Blood pressure 141/62, pulse 83 and regular. HEENT: Normocephalic, atraumatic. NECK: No bruits are noted. HEART: Regular, II/ systolic ejection murmur. CONSULT REPORT [id number] TYLER BAY LUNGS: Good air excursion. ABDOMEN: Soft, nontender. EXTREMITIES: Pulses 2+. There is no edema. DIAGNOSTIC DATA: ECG shows ST-T depression in the high lateral leads. IMPRESSION: Acute coronary syndrome. Timing might certainly be within window for restenosis, multiple risk factors. PLAN: For angiography, intervention based on above. TRANSINT:[id number] Voice Confirmation ID: [id number] DOCUMENT ID: [id number] PAMELA TORRES MD at 1403 CC: [id number] DICTATION DATE: 01/03/19 0834 BUSINESS PRACTICES OFFICER: 01/03/19 0900 ADM IN [facility] [address] [place] [address]
[2019-01-04 16:44] VITALS: BP 137/63
[2019-01-04 20:00] VITALS: BP 113/50
[2019-01-05] VITALS: BP 148/63
[2019-01-05 04:00] VITALS: BP 149/65
[2019-01-05 06:02] LABS: BASOPHILS 0.2 % (0-2); EOSINOPHILS 1.6 % (0-7); HEMATOCRIT 33.3 % (36.0-48.0); HEMOGLOBIN 10.6 g/dL (12-16); MCH 31.3 pg (26.0-34.0); MCHC 31.8 g/dL (31.0-37.0); MCV 98.2 fL (80.0-100.0); MEAN PLATELET VOLUME 11.1 fL (7.4-10.4); MONOCYTES 8.7 % (2-11); NEUTROPHILS 51.5 % (40-80); PLATELET COUNT 202 10x3/uL (130-400); RBC 3.39 10x6/uL (4.00-5.40); RDW 14.2 % (11.5-14.5); WBC 10.5 10x3/uL (4.8-10.8)
[2019-01-05 06:35] LABS: ANION GAP 14.4 mmol/L (8-16); CALCIUM 8.2 mg/dL (8.5-10.1); CARBON DIOXIDE 23.2 mmol/L (21.0-32.0); CREATININE - SERUM 4.6 mg/dL (0.6-1.3); POTASSIUM - SERUM 3.6 mmol/L (3.5-5.1)
[2019-01-05 08:22] VITALS: BP 155/60
[2019-01-05 13:22] VITALS: BP 148/64
--- NOTE | 2019-01-05 16:09 | MORECARE ---
CASE MANAGEMENT DISCHARGE SUMMARY PATIENT: TYLER BAY UNIT: [id number] ADM DATE: 01/03/19 AGE: 74 : 45 SEX: F ROOM/BED: D.2116 AUTHOR: TORIBIO LAMB PHYSICIAN: REFERRING PHYSICIAN: EV PAULINO MD DATE OF SERVICE: 01/05/19 Discharge Plan Patient Name: TYLER BAY Facility: [facility]:[place] : 1945 Planned Disposition: Home Anticipated Discharge Date: Discharge Date: Expected LOS: Initial Reviewer: [email or web address] Initial Review Date: 01/05/2019 Generated: 01/05/19 5:09 pm Patient Name: TYLER BAY Page 52816 at 1609 All edits/amendments must be made on the electronic document DICTATION DATE: 01/05/191608 STUDENT DEAN: SUNITHA 01/05/191608 RPT#: [id number] NE DATE: STATUS: ADM IN [facility] [address] [place] [address] END OF REPORT
--- NOTE | 2019-01-05 16:17 | MORECARE ---
CASE MANAGEMENT DISCHARGE SUMMARY PATIENT: TYLER BAY UNIT: [id number] ADM DATE: 01/03/19 AGE: 74 : 45 SEX: F ROOM/BED: D.2116 AUTHOR: TORIBIO LAMB PHYSICIAN: REFERRING PHYSICIAN: EV PAULINO MD DATE OF SERVICE: 01/05/19 Discharge Plan Patient Name: TYLER BAY Facility: [facility]:[place] : 1945 Planned Disposition: Home Anticipated Discharge Date: Discharge Date: Expected LOS: Initial Reviewer: [email or web address] Initial Review Date: 01/05/2019 Generated: 01/05/19 5:16 pm DCPIA - Discharge Planning Initial Assessment Updated by [email or web address]: Suzan Sevilla on 01/05/19 4:10 pm * Is the patient Alert and Oriented? Yes * How many steps to enter\exit or inside your home? RAMP * PCP SHE THINKS DR BLOUNT. [facility] FORMERLY WAS WITH DR MIRZA * Pharmacy [facility] IN [place] * Preadmission Environment Home Alone * ADLs Independent * Equipment Cane Walker * Other Equipment DENIES ANY ADDITIONAL DME. HAS 2 CANES AND A WALKER BUT DOES NOT UTILIZE NOW. * List name and contact numbers for known caregivers / representatives who currently or will assist patient after discharge: RATNA BAY- DTR IN SSN-[id number] [facility]- [phone] * Verbal permission to speak to the caregivers and representatives has been obtained from the patient. No * Community resources currently utilized None * Please name any agencies selected above. N/A * Additional services required to return to the preadmission environment? No * Can the patient safely return to the preadmission environment? Yes * Has this patient been hospitalized within the prior 30 days at any hospital? No Last DP export: 01/05/19 3:09 p Patient Name: TYLER BAY Page 97841 at 1617 All edits/amendments must be made on the electronic document DICTATION DATE: 01/05/196 LEAD IOS DEVELOPER: SUNITHA 01/05/191615 RPT#: [id number] NE DATE: STATUS: ADM IN [facility] [address] [place] [address] END OF REPORT
--- NOTE | 2019-01-05 16:26 | MORECARE ---
CASE MANAGEMENT DISCHARGE SUMMARY PATIENT: TYLER BAY UNIT: [id number] ADM DATE: 01/03/19 AGE: 74 : 45 SEX: F ROOM/BED: D.4900 AUTHOR: ZAINAB,DOC PHYSICIAN: REFERRING PHYSICIAN: EV PAULINO MD DATE OF SERVICE: 01/05/19 Discharge Plan Patient Name: TYLER BAY Facility: [facility]:[place] : 1945 Planned Disposition: Home Anticipated Discharge Date: Discharge Date: Expected LOS: Initial Reviewer: [email or web address] Initial Review Date: 01/05/2019 Generated: 01/05/19 5:26 pm DCP- Discharge Planning Updated by [email or web address]: Suzan Sevilla on 01/05/19 3:[address] CM MET WITH THE PATIENT AT THE BEDSIDE. EXPLAINED MY ROLE AND RECEIVED CONSENT TO PROCEED WITH THE ASSESSMENT OFDISCHARGE NEEDS. PATIENT LIVES ALONE. HER SON LIVES VERY NEAR HER HOME. [place]/ [place]. HER PCP WAS FORMERLY DR MIRZA. SHE BELIEVES HER NEW DR 'S NAME IS DR BLOUNT AT [facility]. PATIENT DOES NOT REQUIRE ANY HOME HEALTH OR COMMUNITY SERVICES. SHE CAN OBTAIN HER MEDICATIONS. [facility] [place]. SHE WILL HAVE TRANSPORTATION TO HOME BY HER SON, [facility] CM WILL FOLLOW TO ASSIST IS APPROPRIATE. DCPIA - Discharge Planning Initial Assessment Updated by [email or web address]: Suzan Sevilla on 01/05/19 4:10 pm * Is the patient Alert and Oriented? Yes * How many steps to enter\exit or inside your home? RAMP * PCP SHE THINKS DR BLOUNT. [facility] FORMERLY WAS WITH DR MIRZA * Pharmacy [facility] IN [place] * Preadmission Environment Home Alone * ADLs Independent * Equipment Cane Walker * Other Equipment DENIES ANY ADDITIONAL DME. HAS 2 CANES AND A WALKER BUT DOES NOT UTILIZE NOW. * List name and contact numbers for known caregivers / representatives who currently or will assist patient after discharge: RATNA PHU- DTR IN YGH-[phone] ALFRED PHU- SON- [phone] * Verbal permission to speak to the caregivers and representatives has been obtained from the patient. No * Community resources currently utilized None * Please name any agencies selected above. N/A * Additional services required to return to the preadmission environment? No * Can the patient safely return to the preadmission environment? Yes * Has this patient been hospitalized within the prior 30 days at any hospital? No Last DP export: 01/05/19 3:17 p Patient Name: TYLER BAY Page 40402 at 1626 All edits/amendments must be made on the electronic document DICTATION DATE: 01/05/191625 PETROLEUM ANALYST: SUNITHA 01/05/191625 RPT#: [id number] DC DATE: STATUS: ADM IN [facility] [address] [place] [address] END OF REPORT
--- NOTE | 2019-01-05 16:57 | NUR ---
DC PLANS GIVEN. UNDERSTANDING VOICED. ESCORTED TO CAR BY W/C.
[2019-01-05 17:31] VITALS: BP 139/51
--- NOTE | 2019-01-05 19:17 | NUR ---
RESUMING PATIENT CARE. PATIENT IS ALERT AND ORIENTED. RESPIRATIONS ARE EVEN AND UNLABORED. NO S/S OF DISTRESS. NO C/O PAIN. DENIES NEEDS. CALL LIGHT WITHIN REACH. WILL CPOC.
[2019-01-05 20:00] VITALS: BP 168/67
[2019-01-06] VITALS: BP 156/62
[2019-01-06 04:00] VITALS: BP 142/98
[2019-01-06 06:30] LABS: BASOPHILS 0.2 % (0-2); EOSINOPHILS 1.8 % (0-7); HEMATOCRIT 33.2 % (36.0-48.0); HEMOGLOBIN 10.6 g/dL (12-16); IMMATURE GRANULOCYTES 1.2 % (0-5); LYMPHOCYTES 35.6 % (15-50); MCH 31.3 pg (26.0-34.0); MCHC 31.9 g/dL (31.0-37.0); MCV 97.9 fL (80.0-100.0); MEAN PLATELET VOLUME 11.2 fL (7.4-10.4); MONOCYTES 7.8 % (2-11); NEUTROPHILS 53.4 % (40-80); PLATELET COUNT 198 10x3/uL (130-400); RBC 3.39 10x6/uL (4.00-5.40); RDW 14.2 % (11.5-14.5); WBC 11.1 10x3/uL (4.8-10.8)
[2019-01-06 06:40] LABS: ANION GAP 16.9 mmol/L (8-16); CALCIUM 8.1 mg/dL (8.5-10.1); CARBON DIOXIDE 22.7 mmol/L (21.0-32.0); CREATININE - SERUM 5.2 mg/dL (0.6-1.3); POTASSIUM - SERUM 3.6 mmol/L (3.5-5.1)
[2019-01-06 09:49] VITALS: BP 150/54
[2019-01-06 12:21] VITALS: BP 153/66
[2019-01-06 14:55] VITALS: Ht 158.8 cm; Wt 71.9 kg
--- NOTE | 2019-01-06 15:10 | NUR ---
Nutrition follow-up: Diet: ADA consistent CHO PO Intake fair at this time Labs reviewed RDN following.
--- NOTE | 2019-01-06 16:32 | NUR ---
IVSTARTED TO LEFT HAND BY ANTELMO ROGER. URINE SPECIMEN COLLECTED AND TAKEN TO LAB. WILL CONT. PLAN OF CARE.
[2019-01-06 17:00] LABS: APPEARANCE CLEAR (CLEAR); BILIRUBIN NEGATIVE (NEGATIVE); COLOR YELLOW (YELLOW); GLUCOSE 100 mg/dL (NEGATIVE); KETONE NEGATIVE (NEGATIVE); NITRITE NEGATIVE (NEGATIVE); PROTEIN TRACE mg/dL (NEGATIVE); UROBILINOGEN NORMAL (NORMAL)
[2019-01-06 20:00] VITALS: BP 172/68
[2019-01-07] VITALS: BP 151/52
[2019-01-07 04:30] VITALS: BP 144/56
[2019-01-07 05:01] LABS: BASOPHILS 0.2 % (0-2); EOSINOPHILS 1.5 % (0-7); HEMATOCRIT 34.8 % (36.0-48.0); HEMOGLOBIN 11.4 g/dL (12-16); IMMATURE GRANULOCYTES 0.5 % (0-5); LYMPHOCYTES 33.2 % (15-50); MCH 31.7 pg (26.0-34.0); MCHC 32.8 g/dL (31.0-37.0); MCV 96.7 fL (80.0-100.0); MONOCYTES 7.1 % (2-11); NEUTROPHILS 57.5 % (40-80); PLATELET COUNT 214 10x3/uL (130-400); RDW 13.8 % (11.5-14.5); WBC 13.1 10x3/uL (4.8-10.8)
[2019-01-07 05:16] LABS: ANION GAP 14.2 mmol/L (8-16); CALCIUM 8.8 mg/dL (8.5-10.1); CARBON DIOXIDE 23.1 mmol/L (21.0-32.0); CREATININE - SERUM 4.8 mg/dL (0.6-1.3); POTASSIUM - SERUM 3.3 mmol/L (3.5-5.1)
--- NOTE | 2019-01-07 06:00 | NUR ---
PT HAS SLEPT WELL THIS SHIFT. NO CHANGE FROM INITIAL SHIFT ASSESSMENT. IVF INFUSING. RESPS EVEN/NONLABORED. INDEPENDENT TO BATHROOM. NO NEEDS VOICED. CPOC. REPORT TO ONCOMING RN.
--- NOTE | 2019-01-07 07:15 | NUR ---
RECEIVED PT IN BED EYES CLOSED RESP UNLABORED SKIN W/D COLOR WNL NAD NOTED WILL CONTINUE TO MONITOR
[2019-01-07 08:06] VITALS: BP 161/62
--- NOTE | 2019-01-07 12:25 | NUR ---
FSBS 120 LANTUS 35 UNITS DAILY GIVEN SQ RT ARM
[2019-01-07 12:26] VITALS: BP 183/79
[2019-01-07 15:59] VITALS: BP 173/74
--- NOTE | 2019-01-07 17:03 | NUR ---
FSBS 203 REGULAR INSULIN 4 UNITS GIVEN SQ RT ARM
[2019-01-07 20:00] VITALS: BP 162/54
--- NOTE | 2019-01-07 20:02 | NUR ---
INITIAL ROUNDS AND ASSESSMENT COMPLETED. PT RESTING IN BED. FRIEND AT BEDSIDE. PT ALERT/ORIENTED. NS @ 75ML/HR INFUSING TO RIGHT HAND. ALSO HAS SALINE LOCK TO LEFT A/C. O2 @ 2L/NC WITH NONLABORED RESPIRATIONS. SR/76 PER TELEMETRY. DENIES PAIN OR DISCOMFORT. NO NEEDS AT THIS TIME. CPOC. CALL LIGHT IN REACH.
[2019-01-08] VITALS: BP 179/68
--- NOTE | 2019-01-08 01:40 | NUR ---
PT RESTING IN BED WITH EYES CLOSED. RESPS EVEN/NONLABORED. SR/87 PER TELEMETRY. NS @ 75ML/HR INFUSING TO RIGHT HAND. CALL LIGHT IN REACH. MONITOR AND CPOC.
[2019-01-08 04:30] VITALS: BP 176/64
[2019-01-08 06:08] LABS: BASOPHILS 0.2 % (0-2); EOSINOPHILS 1.7 % (0-7); HEMATOCRIT 36.1 % (36.0-48.0); HEMOGLOBIN 11.5 g/dL (12-16); IMMATURE GRANULOCYTES 0.6 % (0-5); LYMPHOCYTES 36.6 % (15-50); MCH 31.1 pg (26.0-34.0); MCHC 31.9 g/dL (31.0-37.0); MCV 97.6 fL (80.0-100.0); MONOCYTES 6.4 % (2-11); NEUTROPHILS 54.5 % (40-80); PLATELET COUNT 210 10x3/uL (130-400); WBC 11.5 10x3/uL (4.8-10.8)
[2019-01-08 06:14] LABS: ANION GAP 16.3 mmol/L (8-16); CALCIUM 8.5 mg/dL (8.5-10.1); CARBON DIOXIDE 22.1 mmol/L (21.0-32.0); CREATININE - SERUM 4.5 mg/dL (0.6-1.3); POTASSIUM - SERUM 3.4 mmol/L (3.5-5.1)
[2019-01-08 07:55] VITALS: BP 170/72
[2019-01-08 10:53] VITALS: BP 179/68
--- NOTE | 2019-01-08 13:30 | NUR ---
CONSENTS SIGNED FOR [facility]. WILL CONT. PLAN OF CARE.
[2019-01-08] MEDS ORDERED: ZITHROMAX500 MG PO (13:37)
[2019-01-08] MEDS ORDERED: OMNICEF300 MG PO (13:37)
--- NOTE | 2019-01-08 15:34 | NUR ---
IV AND TELEMETRY DCD. DC PLANS GIVEN. UNDERSTANDING VOICED. ESCORTED TO CAR BY W/C.
--- NOTE | 2019-01-09 09:07 | MORECARE ---
CASE MANAGEMENT DISCHARGE SUMMARY PATIENT: TYLER BAY UNIT: [id number] ADM DATE: 01/03/19 AGE: 74 : 45 SEX: F ROOM/BED: D.3839 AUTHOR: ZAINAB,DOC PHYSICIAN: REFERRING PHYSICIAN: EV PAULINO MD DATE OF SERVICE: 01/09/19 Discharge Plan Patient Name: TYLER BAY Facility: [facility]:[place] : 1945 Planned Disposition: Home Anticipated Discharge Date: 01/08/19 Discharge Date: 01/08/2019 Expected LOS: 5 Initial Reviewer: [email or web address] Initial Review Date: 01/05/2019 Generated: 01/09/19 10:07 am DCP- Discharge Planning Updated by [email or web address]: Suzan Sevilla on 01/05/19 3:[address] CM MET WITH THE PATIENT AT THE BEDSIDE. EXPLAINED MY ROLE AND RECEIVED CONSENT TO PROCEED WITH THE ASSESSMENT OFDISCHARGE NEEDS. PATIENT LIVES ALONE. HER SON LIVES VERY NEAR HER HOME. SHE GOES TO THE [facility] DAYS/ WEEK. HER PCP WAS FORMERLY DR MIRZA. SHE BELIEVES HER NEW DR 'S NAME IS DR BLOUNT AT [facility]. PATIENT DOES NOT REQUIRE ANY HOME HEALTH OR COMMUNITY SERVICES. SHE CAN OBTAIN HER MEDICATIONS. FRANCISCO IS [facility] IN [place]. SHE WILL HAVE TRANSPORTATION TO HOME BY HER SON, DTR IN [facility] OR [facility]. CM WILL FOLLOW TO ASSIST IS APPROPRIATE. DCPIA - Discharge Planning Initial Assessment Updated by [email or web address]: Suzan Sevilla on 01/05/19 4:10 pm * Is the patient Alert and Oriented? Yes * How many steps to enter\exit or inside your home? RAMP * PCP SHE THINKS DR BLOUNT. [facility] FORMERLY WAS WITH DR MIRZA * Pharmacy [facility] IN [place] * Preadmission Environment Home Alone * ADLs Independent * Equipment Cane Walker * Other Equipment DENIES ANY ADDITIONAL DME. HAS 2 CANES AND A WALKER BUT DOES NOT UTILIZE NOW. * List name and contact numbers for known caregivers / representatives who currently or will assist patient after discharge: RATNA BAY- DTR IN [place]-[phone] ALFRED BAY- SON- [phone] * Verbal permission to speak to the caregivers and representatives has been obtained from the patient. No * Community resources currently utilized None * Please name any agencies selected above. N/A * Additional services required to return to the preadmission environment? No * Can the patient safely return to the preadmission environment? Yes * Has this patient been hospitalized within the prior 30 days at any hospital? No Coverage Notice Reviewer: [email or web address] Joey Moser Notice Issued Date-Time: 01/08/2019 13:45 Notice Type: IM Discharge Notice Notice Delivered To: Patient Relationship to Patient: Self Psychological Science Professor Name: Delivery Method: HAND - Hand Delivered Felisa Days: Prior Verbal Notification: Recipient Understood Notice: Yes Recipient Signature: Yes Med Rec Note Co-signed by Attending: Coverage Notice Comment: Last DP export: 01/05/19 3:27 p Patient Name: TYLER BAY Page 30883 at 0907 All edits/amendments must be made on the electronic document DICTATION DATE: 01/09/19906 HAND FUNNEL COATER: SUNITHA 01/09/19906 RPT#: [id number] DC DATE:01/08/19 STATUS: DIS IN [facility] [address] [place] [address] END OF REPORT
== END 2019-01-08 15:36 | disposition home or self-care (01) | DRG 682 ==
LOC: D.ER 21:53 → OBSVTIME 23:55 → D.M2 23:55
PROVIDERS: Family Medicine; Internal Medicine; Internal Medicine Interventional Cardiology; ADMIT Internal Medicine Nephrology; ATTEND Internal Medicine Nephrology
PROC: B2151ZZ Fluoroscopy of Left Heart using Low Osmolar Contrast (ICD-10-PCS; 2019-01-03)
PROC: 4A023N7 Measurement of Cardiac Sampling and Pressure, Left Heart, Percutaneous Approach (ICD-10-PCS; 2019-01-03)
PROC: B2111ZZ Fluoroscopy of Multiple Coronary Arteries using Low Osmolar Contrast (ICD-10-PCS; principal; 2019-01-03 13:41)
DX: N17.9 Acute kidney failure, unspecified (principal); J18.9 Pneumonia, unspecified organism; I24.9 Acute ischemic heart disease, unspecified; I13.2 Hypertensive heart and chronic kidney disease with heart failure and with stage 5 chronic kidney disease, or end stage renal disease; I50.32 Chronic diastolic (congestive) heart failure; N18.5 Chronic kidney disease, stage 5; I25.10 Atherosclerotic heart disease of native coronary artery without angina pectoris; E11.9 Type 2 diabetes mellitus without complications; E78.5 Hyperlipidemia, unspecified; E11.22 Type 2 diabetes mellitus with diabetic chronic kidney disease; E87.6 Hypokalemia; D64.9 Anemia, unspecified; E83.42 Hypomagnesemia

== ENCOUNTER 2019-03-28 13:11 | Inpatient (IN) | payer MEDICARE, OTHER ==
[~2019-03-28] VITALS: Ht 158.8 cm; Wt 86.0 kg
[2019-03-28] VITALS (27 sets, daily range): BP systolic 118–223; BP diastolic 40–91; BMI 33.8
[~2019-03-28 13:11] MED LIST changes: +OMNICEF300 MG PO; +ZITHROMAX500 MG PO
[2019-03-28 13:48] LABS: BASOPHILS 0.2 % (0-2); EOSINOPHILS 0.7 % (0-7); HEMATOCRIT 38.2 % (36.0-48.0); HEMOGLOBIN 12.5 g/dL (12-16); IMMATURE GRANULOCYTES 0.4 % (0-5); LYMPHOCYTES 35.1 % (15-50); MCH 32.2 pg (26.0-34.0); MCHC 32.7 g/dL (31.0-37.0); MCV 98.5 fL (80.0-100.0); MEAN PLATELET VOLUME 10.7 fL (7.4-10.4); MONOCYTES 6.7 % (2-11); NEUTROPHILS 56.9 % (40-80); PLATELET COUNT 241 10x3/uL (130-400); RBC 3.88 10x6/uL (4.00-5.40); RDW 14.1 % (11.5-14.5); WBC 12.3 10x3/uL (4.8-10.8)
[2019-03-28 14:04] LABS: ALBUMIN 3.5 g/dL (3.4-5.0); ALKALINE PHOSPHATASE 113 U/L (46-116); ALT (SGPT) 13 U/L (10-68); BILIRUBIN - TOTAL 0.28 mg/dL (0.2-1.3); CALC OSMOLALITY 292 mosm/kg (275-300); CARBON DIOXIDE 20.8 mmol/L (21.0-32.0); CHLORIDE - SERUM 105 mmol/L (98-107); CREATININE - SERUM 4.5 mg/dL (0.6-1.3); GLUCOSE 133 mg/dL (74-106); POTASSIUM - SERUM 3.5 mmol/L (3.5-5.1); PROTEIN - SERUM 8.3 g/dL (6.4-8.2); SODIUM 140 mmol/L (136-145); UREA NITROGEN 47 mg/dL (7-18); eGFR NON AFRICAN AMERICAN 10 mL/min (90-120)
[2019-03-28 14:13] LABS: CKMB 1.2 U/L (0.0-3.6); CREATINE KINASE 38 UL (21-215); TROPONIN-I < 0.017 ng/mL (0.000-0.060)
--- NOTE | 2019-03-28 17:19 | MORECARE ---
CASE MANAGEMENT DISCHARGE SUMMARY PATIENT: TYLER CONTRERAS UNIT: [id number] ADM DATE: 03/28/19 AGE: 74 : 45 SEX: F ROOM/BED: D.03 AUTHOR: ZAINAB,DOC PHYSICIAN: REFERRING PHYSICIAN: EV PAULINO MD DATE OF SERVICE: 03/28/19 Discharge Plan Patient Name: TYLER CONTRERAS Facility: [facility]:[place] : 1945 Planned Disposition: Home Anticipated Discharge Date: 03/30/19 Discharge Date: Expected LOS: 2 Initial Reviewer: [email or web address] Initial Review Date: 03/28/2019 Generated: 03/28/19 6:19 pm DCP- Discharge Planning Updated by [email or web address]: Lizzette Rosado on 03/28/19 4:[address] DC PLAN: Return home to her son's. ANTICIPATED DC NEEDS: Denied known dc needs. CM met with patient to complete initial dc planning assessment. CM educated patient on the CM role and verbal consent given by patient to complete assessment. CM verified patient's address, phone number, and emergency contact phone numbers. Patient lives at home on her son's back porch in a cabin. She reports she is independent in her care at home. At discharge patient plans to return home and feels this is a safe discharge. CM discussed availability of home health, rehab services, and medical equipment. Patient denied known discharge needs at this time. Patient reports her niece will transport her home at time of discharge. CM will continue to follow and will assist as needed with dc plans/needs. Lizzette Rosado RN, [facility] DCPIA - Discharge Planning Initial Assessment Updated by [email or web address]: Lizzette Rosado on 03/28/19 5:16 pm * Is the patient Alert and Oriented? Yes * How many steps to enter\exit or inside your home? none * PCP Dr. Joyce * Pharmacy [facility] [place] * Preadmission Environment Home with Family * ADLs Independent * Equipment Cane Rolling Walker * List name and contact numbers for known caregivers / representatives who currently or will assist patient after discharge: Derian Ben - dtr in law - [phone] Ted Contreras - son - [phone] * Verbal permission to speak to the caregivers and representatives has been obtained from the patient. Yes * Community resources currently utilized None * Additional services required to return to the preadmission environment? No * Can the patient safely return to the preadmission environment? Yes * Has this patient been hospitalized within the prior 30 days at any hospital? No Patient Name: TYLER CONTRERAS Page 64790 at 1719 All edits/amendments must be made on the electronic document DICTATION DATE: 03/28/191718 IT COMMUNICATIONS SPECIALIST: SUNITHA 03/28/191718 RPT#: [id number] DC DATE: STATUS: ADM IN [facility] [address] [place] [address] END OF REPORT
--- NOTE | 2019-03-28 19:25 | NUR ---
1834 ADMITTED TO ROOM CV 03 CAME FROM ER VIA WHEELCHAIR ADMIT HISTORY AND ASSESSMENT COMPLETE. SUICIDE SCREEN DONE MONROE WILKINS FOR DR LAGUNAS AT BEDSIDE REVIEWING CHART AND ASSESSING PATIENT
[2019-03-28 19:39] LABS: BASOPHILS 0.1 % (0-2); EOSINOPHILS 0.9 % (0-7); HEMATOCRIT 39.7 % (36.0-48.0); HEMOGLOBIN 12.8 g/dL (12-16); IMMATURE GRANULOCYTES 0.3 % (0-5); LYMPHOCYTES 33.6 % (15-50); MCH 32.2 pg (26.0-34.0); MCHC 32.2 g/dL (31.0-37.0); MCV 99.7 fL (80.0-100.0); MEAN PLATELET VOLUME 10.8 fL (7.4-10.4); MONOCYTES 4.8 % (2-11); NEUTROPHILS 60.3 % (40-80); PLATELET COUNT 243 10x3/uL (130-400); RBC 3.98 10x6/uL (4.00-5.40); RDW 14.2 % (11.5-14.5); WBC 15.2 10x3/uL (4.8-10.8)
[2019-03-29] VITALS (28 sets, daily range): BP systolic 115–160; BP diastolic 41–79; Ht 158.8 cm; Wt 86.0 kg
[2019-03-29] MEDS ORDERED: CELEXA20 MG PO (02:10)
[2019-03-29 05:37] LABS: APTT 28.9 SECONDS (22.8-39.4); INR 1.07 (0.85-1.17); PROTIME 13.4 SECONDS (11.6-15.0)
[2019-03-29 05:41] LABS: BASOPHILS 0.2 % (0-2); EOSINOPHILS 0.6 % (0-7); HEMATOCRIT 37.7 % (36.0-48.0); IMMATURE GRANULOCYTES 0.3 % (0-5); MCH 31.5 pg (26.0-34.0); MCHC 31.8 g/dL (31.0-37.0); MEAN PLATELET VOLUME 10.7 fL (7.4-10.4); MONOCYTES 5.8 % (2-11); NEUTROPHILS 68.1 % (40-80); PLATELET COUNT 242 10x3/uL (130-400); RBC 3.81 10x6/uL (4.00-5.40); RDW 14.1 % (11.5-14.5); WBC 13.1 10x3/uL (4.8-10.8)
[2019-03-29 06:12] LABS: ALBUMIN 3.3 g/dL (3.4-5.0); ANION GAP 17.2 mmol/L (8-16); BILIRUBIN - TOTAL 0.3 mg/dL (0.2-1.3); CALCIUM 8.6 mg/dL (8.5-10.1); CARBON DIOXIDE 21.5 mmol/L (21.0-32.0); CREATININE - SERUM 4.2 mg/dL (0.6-1.3); MAGNESIUM - SERUM 2.1 mg/dL (1.8-2.4); PHOSPHOROUS 5.3 mg/dL (2.5-4.9); POTASSIUM - SERUM 3.7 mmol/L (3.5-5.1); PROTEIN - SERUM 7.7 g/dL (6.4-8.2)
--- NOTE | 2019-03-29 08:12 | NUR ---
SHIFT ASSESSMENT COMPLETE. PT AWAKE, A&O. SAYS READY TO GO HOME.
--- NOTE | 2019-03-29 14:21 | NUR ---
DISCHARGE INSTRUCTIONS PROVIDED TO PT AND SON. PT HAS ALREADY SET UP A FOLLOWUP WITH HER PCP FOR ON WEDNESDAY. REITERATED IMPORTANCE OF TAKING MEDICATIONS. SON AWARE SHE HAS NOT BEEN TAKING IT. PT ASKED THAT SON ALFRED SIGN DISCHARGE PAPERS FOR HER.
--- NOTE | 2019-03-29 14:37 | NUR ---
PT ESCORTED TO CAR VIA WHEELCHAIR.
--- NOTE | 2019-03-29 16:48 | MORECARE ---
CASE MANAGEMENT DISCHARGE SUMMARY PATIENT: TYLER CONTRERAS UNIT: [id number] ADM DATE: 03/28/19 AGE: 74 : 45 SEX: F ROOM/BED: D.CV03 AUTHOR: ZAINABDOC PHYSICIAN: REFERRING PHYSICIAN: EV PAULINO MD DATE OF SERVICE: 03/29/19 Discharge Plan Patient Name: TYLER CONTRERAS Facility: [facility]:[place] : 1945 Planned Disposition: Home Anticipated Discharge Date: 03/30/19 Discharge Date: 03/29/2019 Expected LOS: 2 Initial Reviewer: [email or web address] Initial Review Date: 03/28/2019 Generated: 03/29/19 5:48 pm DCP- Discharge Planning Updated by [email or web address]: Lizzette Rosado on 03/28/19 4:[address] DC PLAN: Return home to her son's. ANTICIPATED DC NEEDS: Denied known dc needs. CM met with patient to complete initial dc planning assessment. CM educated patient on the CM role and verbal consent given by patient to complete assessment. CM verified patient's address, phone number, and emergency contact phone numbers. Patient lives at home on her son's back porch in a cabin. She reports she is independent in her care at home. At discharge patient plans to return home and feels this is a safe discharge. CM discussed availability of home health, rehab services, and medical equipment. Patient denied known discharge needs at this time. Patient reports her niece will transport her home at time of discharge. CM will continue to follow and will assist as needed with dc plans/needs. Lizzette Rosado RN, [facility] DCPIA - Discharge Planning Initial Assessment Updated by [email or web address]: Lizzette Rosado on 03/28/19 5:16 pm * Is the patient Alert and Oriented? Yes * How many steps to enter\exit or inside your home? none * PCP Dr. Joyce * Pharmacy [facility] [place] * Preadmission Environment Home with Family * ADLs Independent * Equipment Cane Rolling Walker * List name and contact numbers for known caregivers / representatives who currently or will assist patient after discharge: Microzina Contreras - dtr in law - [phone] Ted Contreras - son - [phone] * Verbal permission to speak to the caregivers and representatives has been obtained from the patient. Yes * Community resources currently utilized None * Additional services required to return to the preadmission environment? No * Can the patient safely return to the preadmission environment? Yes * Has this patient been hospitalized within the prior 30 days at any hospital? No Last DP export: 03/28/19 4:19 p Patient Name: TYLER CONTRERAS Page 85105 at 1648 All edits/amendments must be made on the electronic document DICTATION DATE: 03/29/191647 SOLID DIE CUTTER: SUNITHA 03/29/191647 RPT#: [id number] DC DATE:03/29/19 STATUS: DIS IN [facility] [address] [place] [address] END OF REPORT
--- NOTE | 2019-03-29 16:56 | MORECARE ---
CASE MANAGEMENT DISCHARGE SUMMARY PATIENT: TYLER CONTRERAS UNIT: [id number] ADM DATE: 03/28/19 AGE: 74 : 45 SEX: F ROOM/BED: D.CV03 AUTHOR: TORIBIO LAMB PHYSICIAN: REFERRING PHYSICIAN: EV PAULINO MD DATE OF SERVICE: 03/29/19 Discharge Plan Patient Name: TYLER CONTRERAS Facility: [facility]:[place] : 1945 Planned Disposition: Home Anticipated Discharge Date: 03/30/19 Discharge Date: 03/29/2019 Expected LOS: 2 Initial Reviewer: [email or web address] Initial Review Date: 03/28/2019 Generated: 03/29/19 5:55 pm Comments DCP- Discharge Planning Updated by [email or web address]: Madhavi Marin on 03/29/19 3:[address] CM spoke with patient regarding availability of getting prescriptions. Patient stated that she just hasn't picked them up. CM asked if there was a financial barrier with getting medications and she denied any. CM asked about her CPAP she stated that the elastic piece was stretched out and the mask didn't fit correctly. Patient could not give CM the name of provider. CM gave patient card with information to call back if needed to get new mask. CM will continue to follow and assist as needed with discharge planning needs. DCP- Discharge Planning Updated by [email or web address]: Lizzette Rosado on 03/28/19 4:[address] DC PLAN: Return home to her son's. ANTICIPATED DC NEEDS: Denied known dc needs. CM met with patient to complete initial dc planning assessment. CM educated patient on the CM role and verbal consent given by patient to complete assessment. CM verified patient's address, phone number, and emergency contact phone numbers. Patient lives at home on her son's back porch in a cabin. She reports she is independent in her care at home. At discharge patient plans to return home and feels this is a safe discharge. CM discussed availability of home health, rehab services, and medical equipment. Patient denied known discharge needs at this time. Patient reports her niece will transport her home at time of discharge. CM will continue to follow and will assist as needed with dc plans/needs. Lizzette Rosado RN, [facility] DCPIA - Discharge Planning Initial Assessment Updated by [email or web address]: Lizzette Rosado on 03/28/19 5:16 pm * Is the patient Alert and Oriented? Yes * How many steps to enter\exit or inside your home? none * PCP Dr. Joyce * Pharmacy [facility] [place] * Preadmission Environment Home with Family * ADLs Independent * Equipment Cane Rolling Walker * List name and contact numbers for known caregivers / representatives who currently or will assist patient after discharge: Derian Ben - dtr in law - [phone] Ted Contreras - [facility] - [phone] * Verbal permission to speak to the caregivers and representatives has been obtained from the patient. Yes * Community resources currently utilized None * Additional services required to return to the preadmission environment? No * Can the patient safely return to the preadmission environment? Yes * Has this patient been hospitalized within the prior 30 days at any hospital? No Last DP export: 03/29/19 3:48 p Patient Name: TYLER CONTRERAS Page 17279 at 1656 All edits/amendments must be made on the electronic document DICTATION DATE: 03/29/191654 SOLID WASTE MANAGEMENT ENGINEER: SUNITHA 03/29/191654 RPT#: [id number] MD DATE:03/29/19 STATUS: DIS IN [facility] [address] [place] [address] END OF REPORT
== END 2019-03-29 14:43 | disposition home or self-care (01) | DRG 305 ==
LOC: D.ER 13:11 → D.CVICU 16:18
PROVIDERS: Family Medicine; ADMIT Internal Medicine Nephrology; ATTEND Internal Medicine Nephrology
DX: I16.1 Hypertensive emergency (principal); I50.32 Chronic diastolic (congestive) heart failure; I13.0 Hypertensive heart and chronic kidney disease with heart failure and stage 1 through stage 4 chronic kidney disease, or unspecified chronic kidney disease; N18.9 Chronic kidney disease, unspecified; E11.9 Type 2 diabetes mellitus without complications; E78.5 Hyperlipidemia, unspecified; I25.10 Atherosclerotic heart disease of native coronary artery without angina pectoris; Z91.120 Patient's intentional underdosing of medication regimen due to financial hardship; E03.9 Hypothyroidism, unspecified; G47.33 Obstructive sleep apnea (adult) (pediatric)

== ENCOUNTER 2020-02-10 11:26 | Inpatient (IN) | payer MEDICARE, OTHER ==
[~2020-02-10] VITALS: Ht 158.8 cm; Wt 90.7 kg
[2020-02-10] MEDS ORDERED: NORVASC5 MG PO (11:33)
[2020-02-10] MEDS ORDERED: LIPITOR80 MG PO (11:33)
[2020-02-10] MEDS ORDERED: NITROSTAT0.4 MG SL (11:34)
[2020-02-10] MEDS ORDERED: HYDROCODON-ACE1 EAC7 PO (11:34)
[2020-02-10] MEDS ORDERED: JANUVIA100 MG PO (11:34)
[2020-02-10] MEDS ORDERED: PROTONIX40 MG PO (11:35)
[2020-02-10] MEDS ORDERED: CARAFATE1 G PO (11:36)
[2020-02-10] MEDS ORDERED: ROPINIROLE HCL0.5 MG PO (11:36)
[2020-02-10] MEDS ORDERED: TOPROL XL100 MG PO (11:37)
[2020-02-10 12:12] LABS: BASOPHILS 0.1 % (0-2); EOSINOPHILS 0.3 % (0-7); HEMATOCRIT 34.4 % (36.0-48.0); HEMOGLOBIN 10.8 g/dL (12-16); IMMATURE GRANULOCYTES 0.7 % (0-5); LYMPHOCYTES 24.6 % (15-50); MCHC 31.4 g/dL (31.0-37.0); MCV 98.9 fL (80.0-100.0); MEAN PLATELET VOLUME 10.3 fL (7.4-10.4); MONOCYTES 7.8 % (2-11); NEUTROPHILS 66.5 % (40-80); PLATELET COUNT 226 10x3/uL (130-400); RBC 3.48 10x6/uL (4.00-5.40); RDW 16.9 % (11.5-14.5); WBC 8.9 10x3/uL (4.8-10.8)
[2020-02-10 12:36] LABS: ANION GAP 16.3 mmol/L (8-16); CALCIUM 8.7 mg/dL (8.5-10.1); CARBON DIOXIDE 25.2 mmol/L (21.0-32.0); POTASSIUM - SERUM 3.5 mmol/L (3.5-5.1)
[2020-02-10 12:42] LABS: ALBUMIN 3.1 g/dL (3.4-5.0); BILIRUBIN - TOTAL 0.3 mg/dL (0.2-1.3); PROTEIN - SERUM 7.6 g/dL (6.4-8.2)
[2020-02-10 13:15] LABS: BILIRUBIN NEGATIVE (NEGATIVE); KETONE NEGATIVE (NEGATIVE); NITRITE NEGATIVE (NEGATIVE); UROBILINOGEN NORMAL (NORMAL)
--- NOTE | 2020-02-10 14:32 | NUR ---
CALLED REPORT TO SERA ROGER AT THIS TIME.
--- NOTE | 2020-02-10 15:00 | NUR ---
PATIENT TO ROOM FROM ER VIA BED.ASSESSMENT PER FLOW SHEET. PATIENT IS WITHOUT DISTRESS. ORIENTATION TO ROOM WITH PATIENT AND FAMILY.CALL LIGHT IN REACH. DOOR OPEN. FALL PREVENTION IN PLACE WITH FAVIOLA MAT.
[2020-02-10 16:07] VITALS: BP 158/62; BMI 36.0
--- NOTE | 2020-02-10 19:00 | NUR ---
BEDSIDE REPORT RECEIVED AND CARE OF PT ASSUMED. PT LYING IN LOW BULLOCK'S POSITION WITH EYES CLOSED. IV TO RIGHT HAND SALINE LOCKED. BED ALARM IN USE FOR SAFETY.
[2020-02-10 20:00] VITALS: BP 119/65
--- NOTE | 2020-02-10 21:04 | NUR ---
HS MEDICATIONS GIVEN. WILL CONTINUE TO MONITOR FOR NEEDS.
[2020-02-11 00:10] VITALS: BP 156/57
[2020-02-11 04:30] VITALS: BP 169/61
[2020-02-11 07:45] LABS: BASOPHILS 0.1 % (0-2); HEMATOCRIT 32.2 % (36.0-48.0); HEMOGLOBIN 10.1 g/dL (12-16); IMMATURE GRANULOCYTES 0.4 % (0-5); LYMPHOCYTES 34.3 % (15-50); MCH 30.7 pg (26.0-34.0); MCHC 31.4 g/dL (31.0-37.0); MCV 97.9 fL (80.0-100.0); MONOCYTES 8.6 % (2-11); NEUTROPHILS 55.6 % (40-80); PLATELET COUNT 235 10x3/uL (130-400); RBC 3.29 10x6/uL (4.00-5.40); RDW 16.7 % (11.5-14.5); WBC 8.3 10x3/uL (4.8-10.8)
[2020-02-11 07:47] LABS: ALBUMIN 2.9 g/dL (3.4-5.0); BILIRUBIN - TOTAL 0.21 mg/dL (0.2-1.3); CALCIUM 8.3 mg/dL (8.5-10.1); CARBON DIOXIDE 23.5 mmol/L (21.0-32.0); CREATININE - SERUM 6.3 mg/dL (0.6-1.3); POTASSIUM - SERUM 3.5 mmol/L (3.5-5.1); PROTEIN - SERUM 6.4 g/dL (6.4-8.2)
[2020-02-11 09:49] VITALS: BP 150/71
--- NOTE | 2020-02-11 09:55 | NUR ---
ASSESSMENT PER FLOW SHEET. PT HAS SEEN THIS AM. ATE 80% OF BREAKFAST ,FEEDING SELF WITH SETUP ONLY. FALL PREVENTION IN PLACE WITH FAVIOLA. DOOR OPEN
[2020-02-11 12:15] VITALS: BP 155/55
--- NOTE | 2020-02-11 12:29 | NUR ---
PATIENT IS WITHOUT NEEDS. DOOR OPEN
[2020-02-11 17:21] VITALS: BP 173/58
--- NOTE | 2020-02-11 19:00 | NUR ---
BEDSIDE REPORT RECEIVED AND CARE OF PT ASSUMED. PT LYING IN SUPINE POSITION WITH EYES CLOSED. IV TO LEFT HAND SALINE LOCKED. PUREWICK IN USE.
[2020-02-11 20:00] VITALS: BP 116/62
--- NOTE | 2020-02-11 20:35 | NUR ---
HS MEDICATIONS GIVEN TO INCLUDE A NORCO PER REQUEST, PER PRN ORDER.
[2020-02-12 00:05] VITALS: BP 125/53
[2020-02-12 04:30] VITALS: BP 126/40
[2020-02-12 08:44] VITALS: BP 118/58
--- NOTE | 2020-02-12 10:00 | NUR ---
PATIENT IN DIALYSIS.
--- NOTE | 2020-02-12 13:45 | NUR ---
PATIENT IN BED. SITTING UP EATING AT THIS TIME. MEDS GIVEN. DID NOT GIVE BP MEDS BECAUSE BP WAS 132/58 AFTER DIALYSIS AND HAD DROPPED TO 80'S OVER 50'S THERE. PATIENT HAS NO COMPLAINTS OR SIGNS OF DISTRESSS. STATES SHE IS TIRED. CALL LIGHT WITHIN REACH.
[2020-02-12 13:53] VITALS: Ht 158.8 cm; Wt 90.7 kg
--- NOTE | 2020-02-12 15:46 | NUR ---
PATIENT IN BED WITH IV INTACT. NO COMPLAINTS OR SIGNS OF DISTRESS. CALL LIGHT WITHIN REACH.
[2020-02-12 17:37] VITALS: BP 151/82
--- NOTE | 2020-02-12 19:00 | NUR ---
BEDSIDE REPORT RECEIVED AND CARE OF PT ASSUMED. PT LYING IN SUPINE POSITION WITH EYES CLOSED. IV TO LEFT HAND SALINE LOCKED. LEFT CHEST HEMOSPLIT SALINE LOCKED. WILL MONITOR FOR NEEDS.
[2020-02-12 20:00] VITALS: BP 177/60
--- NOTE | 2020-02-12 21:16 | NUR ---
HS MEDICATIONS GIVEN TO INCLUDE NORCO PER REQUEST FOR PAIN. WILL MONITOR TO MONITOR FOR NEEDS.
[2020-02-13] VITALS: BP 126/48
[2020-02-13 04:00] VITALS: BP 116/53
[2020-02-13 07:03] LABS: ANION GAP 13.1 mmol/L (8-16); CALCIUM 8.9 mg/dL (8.5-10.1); CARBON DIOXIDE 27.2 mmol/L (21.0-32.0); CREATININE - SERUM 5.2 mg/dL (0.6-1.3)
[2020-02-13 07:04] LABS: POTASSIUM - SERUM 3.3 mmol/L (3.5-5.1)
[2020-02-13 07:14] LABS: BASOPHILS 0.2 % (0-2); EOSINOPHILS 1.1 % (0-7); HEMOGLOBIN 10.6 g/dL (12-16); IMMATURE GRANULOCYTES 0.3 % (0-5); LYMPHOCYTES 30.4 % (15-50); MCH 30.4 pg (26.0-34.0); MCHC 31.2 g/dL (31.0-37.0); MCV 97.4 fL (80.0-100.0); MEAN PLATELET VOLUME 11.1 fL (7.4-10.4); MONOCYTES 8.8 % (2-11); NEUTROPHILS 59.2 % (40-80); PLATELET COUNT 194 10x3/uL (130-400); RBC 3.49 10x6/uL (4.00-5.40); RDW 16.6 % (11.5-14.5); WBC 9.9 10x3/uL (4.8-10.8)
[2020-02-13 10:04] VITALS: BP 180/60
--- NOTE | 2020-02-13 11:36 | NUR ---
OT NOTE: (LATE ENTRY FOR 02/11) ATTEMPTED EVAL, HOWEVER, PT OUT OF ROOM EACH TIME THERAPIST CHECKED ON HER (10:49 AND 1:45) WILL ATTEMPT TOMORROW. YAZMIN DELGADO, OTR/L
[2020-02-13 13:46] VITALS: BP 157/55
--- NOTE | 2020-02-13 14:30 | NUR ---
Rehab Note- Acute Inpatient Rehab prescreen order recived. The patient is a good inpatient acute rehab candidate. Have spoken with [facility] Jernigan and they are in process of getting medical records from [facility] for recent hosptialization of CVA and also for fracture to foot with boot per family for weight bearing status at this time. Will continue to follow at this time. Thank you for this referral! Portia Gage RN Clinical Liaison, [facility] Rehab
--- NOTE | 2020-02-13 15:10 | MORECARE ---
CASE MANAGEMENT DISCHARGE SUMMARY PATIENT: TYLER BAY UNIT: [id number] ADM DATE: 02/10/20 AGE: 75 : 45 SEX: F ROOM/BED: D.2216 AUTHOR: TORIBIO LAMB PHYSICIAN: REFERRING PHYSICIAN: LEWIS THAKUR MD DATE OF SERVICE: 02/13/20 Discharge Plan Patient Name: TYLER BAY Facility: [facility]:[place] : 1945 Planned Disposition: Inpatient Rehab Anticipated Discharge Date: Discharge Date: Expected LOS: Initial Reviewer: [email or web address] Initial Review Date: 02/10/2020 Generated: 02/13/20 4:09 pm Patient Name: TYLER BAY Page 12407 at 1510 All edits/amendments must be made on the electronic document DICTATION DATE: 02/13/20 1509 WELDER OXYHYDROGEN: SUNITHA 02/13/20 1509 RPT#: [id number] DC DATE: STATUS: ADM IN [facility] [address] [place] [address] END OF REPORT
[2020-02-13 16:47] VITALS: BP 156/55
[2020-02-13 20:00] VITALS: BP 172/54
--- NOTE | 2020-02-13 20:00 | NUR ---
PT SITTING UP IN BED WITHOUT DISTRESS, AOX3. IV LEFT HAND SL. LEFT CHEST HEMOSPLIT. SCDS ON. O2 2.5L/NC. BED ALARM ON. BILAT WEAKNESS IN ARMS AND LEGS, MORE SO ON RIGHT SIDE. PUREWICK IN PLACE. DENIES NEEDS AT THIS TIME. CL IN REACH, WILL CTM
--- NOTE | 2020-02-13 21:00 | NUR ---
FSBS 116, NO COVERAGE PER SS. DENIES NEEDS. CL IN REACH, WILL CTM
[2020-02-14] VITALS: BP 146/53
--- NOTE | 2020-02-14 03:58 | NUR ---
PT LYING IN BED SLEEPING WITHOUT DISTRESS, WILL CTM
[2020-02-14 04:00] VITALS: BP 153/51
--- NOTE | 2020-02-14 05:00 | NUR ---
PT GIVEN BED BATH AT THIS TIME, LINENS CHANGED. ANU CARE PROVIDED, PUREWICK CHANGED. DENIES OTHER NEEDS, WILL CTM
[2020-02-14 07:00] LABS: BASOPHILS 0.1 % (0-2); EOSINOPHILS 1.3 % (0-7); HEMATOCRIT 33.3 % (36.0-48.0); HEMOGLOBIN 10.4 g/dL (12-16); IMMATURE GRANULOCYTES 0.3 % (0-5); LYMPHOCYTES 28.2 % (15-50); MCH 30.4 pg (26.0-34.0); MCHC 31.2 g/dL (31.0-37.0); MCV 97.4 fL (80.0-100.0); MEAN PLATELET VOLUME 11.1 fL (7.4-10.4); MONOCYTES 8.2 % (2-11); NEUTROPHILS 61.9 % (40-80); PLATELET COUNT 193 10x3/uL (130-400); RBC 3.42 10x6/uL (4.00-5.40); RDW 16.7 % (11.5-14.5)
[2020-02-14 08:36] LABS: ANION GAP 15.6 mmol/L (8-16); CALCIUM 8.6 mg/dL (8.5-10.1); CARBON DIOXIDE 23.4 mmol/L (21.0-32.0); CREATININE - SERUM 6.2 mg/dL (0.6-1.3)
--- NOTE | 2020-02-14 14:30 | NUR ---
BROUGHT PATIENT BACK FROM DIALYSIS. SET UP IN BED TO EAT. NO COMPLAINTS OR PROBLEMS. MEDS GIVEN. CALL LIGHT WITHIN REACH.
[2020-02-14 18:10] VITALS: BP 150/69
--- NOTE | 2020-02-14 18:15 | NUR ---
REPORT CALLED TO [facility] IN REHAB. PATIENT TO GO TO 1108 B.
--- NOTE | 2020-02-14 19:49 | NUR ---
PATIENT TAKEN DOWN TO REHAB BY NIGHT NURSE AND MACHINE LOAD CLERK
--- NOTE | 2020-02-15 16:31 | MORECARE ---
CASE MANAGEMENT DISCHARGE SUMMARY PATIENT: TYLER BAY UNIT: [id number] ADM DATE: 02/10/20 AGE: 75 : 45 SEX: F ROOM/BED: D.2216 AUTHOR: TORIBIO LAMB PHYSICIAN: REFERRING PHYSICIAN: LEWIS THAKUR MD DATE OF SERVICE: 02/15/20 Discharge Plan Patient Name: TYLER BAY Facility: [facility]:[place] : 1945 Planned Disposition: Inpatient Rehab Anticipated Discharge Date: Discharge Date: 02/14/2020 Expected LOS: Initial Reviewer: [email or web address] Initial Review Date: 02/10/2020 Generated: 02/15/20 5:30 pm Last DP export: 02/13/20 2:10 p Patient Name: TYLER BAY Page 02716 at 1631 All edits/amendments must be made on the electronic document DICTATION DATE: 02/15/20 1631 ACCOUNT SERVICES ANALYST: SUNITHA 02/15/20 1631 RPT#: [id number] DC DATE:02/14/20 STATUS: DIS IN [facility] [address] [place] [address] END OF REPORT
== END 2020-02-14 20:00 | DRG 640 ==
LOC: D.ER 11:26 → D.MS 13:48
PROVIDERS: Emergency Medicine; Family Medicine; ADMIT Legal Medicine; ATTEND Legal Medicine
DX: R62.7 Adult failure to thrive (principal); R53.2 Functional quadriplegia; N18.6 End stage renal disease; I69.351 Hemiplegia and hemiparesis following cerebral infarction affecting right dominant side; E11.9 Type 2 diabetes mellitus without complications; I10 Essential (primary) hypertension; D64.9 Anemia, unspecified; E87.6 Hypokalemia

== ENCOUNTER 2020-02-14 20:41 | Inpatient (IN) | payer MEDICARE, OTHER ==
[~2020-02-14] VITALS: Ht 158.8 cm; Wt 89.0 kg
[~2020-02-14 20:41] MED LIST changes: +CARAFATE1 G PO; +HYDROCODON-ACE1 EAC7 PO; +JANUVIA100 MG PO; +LIPITOR80 MG PO; +NITROSTAT0.4 MG SL; +NORVASC5 MG PO; +ROPINIROLE HCL0.5 MG PO; +TOPROL XL100 MG PO
--- NOTE | 2020-02-14 21:04 | NUR ---
PT ARRIVED ON UNIT AT 2014 BY BED, ACCOMPANIED BY TWO HOSPITAL STAFF, PT A&O, ON 2L O2, QUIET, PLEASANT, VITAL SIGNS TAKEN, HEAD TO TOE ASSESSMENT, OLD SCAR TO L KNEE, L UPPER CHEST GISEL SPLIT, BRUISE TO L BACK JUST BELOW SHOULDER BLADE, SCATTERED BRUISES TO UPPER ARMS, PT WET NEEDED CHANGED
--- NOTE | 2020-02-14 23:17 | NUR ---
PT IN BED WATCHING TV, NO NEEDS NOTED, RESPIRATIONS EVEN/UNLABORED, FALL PRECAUTIONS IN PLACE, FLUIDS/CALL LIGHT WITHIN REACH
[2020-02-14 23:19] VITALS: BP 165/52
[2020-02-15 00:52] VITALS: BP 158/62; BMI 36.0
[2020-02-15 05:12] VITALS: BP 183/55
--- NOTE | 2020-02-15 06:26 | NUR ---
PT IN ASLEEP, NO NEEDS NOTED, RESPIRATIONS EVEN/UNLABORED, FALL PRECAUTIONS IN PLACE, FLUIDS/CALL LIGHT WITHIN REACH, AROUSES EASILY TO VOICE
[2020-02-15 06:44] LABS: BASOPHILS 0.2 % (0-2); EOSINOPHILS 0.9 % (0-7); HEMATOCRIT 33.9 % (36.0-48.0); HEMOGLOBIN 10.7 g/dL (12-16); IMMATURE GRANULOCYTES 0.3 % (0-5); LYMPHOCYTES 25.7 % (15-50); MCH 30.7 pg (26.0-34.0); MCHC 31.6 g/dL (31.0-37.0); MCV 97.4 fL (80.0-100.0); MEAN PLATELET VOLUME 11.3 fL (7.4-10.4); MONOCYTES 8.6 % (2-11); NEUTROPHILS 64.3 % (40-80); PLATELET COUNT 176 10x3/uL (130-400); RBC 3.48 10x6/uL (4.00-5.40); RDW 16.7 % (11.5-14.5); WBC 11.9 10x3/uL (4.8-10.8)
[2020-02-15 06:52] LABS: ANION GAP 12.5 mmol/L (8-16); CALCIUM 8.9 mg/dL (8.5-10.1); CARBON DIOXIDE 28.2 mmol/L (21.0-32.0); CREATININE - SERUM 4.9 mg/dL (0.6-1.3); POTASSIUM - SERUM 3.7 mmol/L (3.5-5.1)
[2020-02-15 07:46] VITALS: Ht 158.8 cm; Wt 89.0 kg
[2020-02-15 08:01] VITALS: BP 165/53
--- NOTE | 2020-02-15 08:04 | NUR ---
SITTING UP IN BED EATING BREAKFAST, DENIES ANY NEEDS AT THIS TIME, C/L AND FLUIDS IN REACH.
--- NOTE | 2020-02-15 10:33 | NUR ---
PATIENT ADMITTED TO REHAB FROM THE ACUTE FLOOR. SHE IS TO SEE HOANG CRENSHAW APN AT DISCHARGE. WILL CONTINUE TO FOLLOW WITH PATIENT .
--- NOTE | 2020-02-15 12:00 | NUR ---
UP IN W/C WITH THERAPY, SHOWER GIVEN, DENIES ANY NEEDS AT THIS TIME, C/L AND FLUIDS IN REACH.
--- NOTE | 2020-02-15 14:31 | NUR ---
I have reviewed this patient and I concur with the Shift Assessment completed by the Licensed Practical Nurse today this shift.
--- NOTE | 2020-02-15 16:00 | NUR ---
RESTING IN BED WITH EYES CLOSED, RESP EVEN AND UNLABORED O2 RUNNING AT 3LPM, NO S/S OF DISTRESS NOTED, C/L AND FLUIDS IN REACH.
[2020-02-15 17:22] VITALS: BP 169/52
--- NOTE | 2020-02-15 18:50 | NUR ---
RECEIVED PT SITTING UP IN BED EYES CLOSED RESTING. NO SIGNS OF ACUTE DISTRESS NOTED. LEFT CHEST MAHURKER PATENT. DRESSING INTACT. LEFT HAND IV WITHOUT REDNESS OR SWELLING. DRESSING INTACT. CONTINUES ON 2.5L VIA NC. CALL LIGHT WITHIN REACH. FALL PRECAUTIONS IN PLACE. CPOC
[2020-02-16 00:38] VITALS: BP 153/46
--- NOTE | 2020-02-16 00:50 | NUR ---
PT LYING IN BED ON RIGHT SIDE EYES CLOSED RESTING. RR EVEN AND UNLABORED. CALL LIGHT WITHIN REACH. FALL PRECAUTIONS IN PLACE. CPOC
--- NOTE | 2020-02-16 03:24 | NUR ---
PT LYING IN BED ON LEFT SIDE EYES CLOSED RESTING. NO SIGNS OF ACUTE DISTRESS NOTED. CALL LIGHT WITHIN REACH. WILL CONTINUE TO MONITOR
--- NOTE | 2020-02-16 05:25 | NUR ---
INCONTINENCE CARE PROVIDED. MED URINE INCONTINENCY. REPOSITIONED TO TOP OF BED SUPINE. HOB ELEVATED. HEELS FLOATED. PT DENIES ANY OTHER NEEDS OR PAIN. CALL LIGHT AND WATER WITHIN REACH. FALL PRECAUTIONS IN PLACE. CPOC
[2020-02-16 05:35] VITALS: BP 169/55
[2020-02-16 07:25] LABS: BASOPHILS 0.1 % (0-2); EOSINOPHILS 0.9 % (0-7); HEMATOCRIT 33.9 % (36.0-48.0); HEMOGLOBIN 10.7 g/dL (12-16); IMMATURE GRANULOCYTES 0.2 % (0-5); LYMPHOCYTES 25.4 % (15-50); MCH 30.7 pg (26.0-34.0); MCHC 31.6 g/dL (31.0-37.0); MCV 97.1 fL (80.0-100.0); MEAN PLATELET VOLUME 11.7 fL (7.4-10.4); MONOCYTES 8.5 % (2-11); NEUTROPHILS 64.9 % (40-80); PLATELET COUNT 186 10x3/uL (130-400); RBC 3.49 10x6/uL (4.00-5.40); RDW 16.7 % (11.5-14.5); WBC 12.1 10x3/uL (4.8-10.8)
[2020-02-16 07:42] LABS: ANION GAP 15.9 mmol/L (8-16); CALCIUM 8.9 mg/dL (8.5-10.1); CARBON DIOXIDE 25.5 mmol/L (21.0-32.0); POTASSIUM - SERUM 3.4 mmol/L (3.5-5.1)
[2020-02-16 07:45] LABS: CREATININE - SERUM 7.1 mg/dL (0.6-1.3)
[2020-02-16 08:07] VITALS: BP 137/70
--- NOTE | 2020-02-16 08:14 | NUR ---
PT RESTING IN BED WITH EYES OPEN CALL LIGHT IN REACH WILL MONITER
--- NOTE | 2020-02-16 17:47 | NUR ---
PT RESTING IN BED WITH EYES OPEN CALL LIGHT IN REACH WILL MONITER
--- NOTE | 2020-02-16 19:05 | NUR ---
RECEIVED PT LYING IN BED EYES CLOSED RESTING. RR EVEN AND UNLABORED. EASILY AROUSED WITH VERBAL STIMULI. DENIES ANY NEEDS OR PAIN. CALL LIGHT WITHIN REACH. FALL PRECAUTIONS IN PLACE. CPOC
[2020-02-16 20:17] VITALS: BP 154/58
[2020-02-17 00:29] VITALS: BP 127/52
--- NOTE | 2020-02-17 00:30 | NUR ---
PT LYING IN BED AWAKE. VS STABLE. BRIEF DRY. DENIES ANY PAIN OR NEEDS. REPOSITIONED TO LEFT SIDE. CALL LIGHT WITHIN REACH. FALL PRECAUTIONS IN PLACE. CPOC
--- NOTE | 2020-02-17 02:33 | NUR ---
PT LYING IN BED EYES CLOSED RESTING. REPOSITIONED TO RIGHT SIDE. BRIEF CLEAN AND DRY. CALL LIGHT WITHIN REACH. WILL CONTINUE TO MONITOR
--- NOTE | 2020-02-17 04:30 | NUR ---
PT LYING IN BED ON RIGHT SIDE EYES CLOSED RESTING. NO SIGNS OF ACUTE DISTRESS NOTED. CONTINUES ON 2.5L VIA NC. CALL LIGHT WITHIN REACH. WILL CONTINUE TO MONITOR
[2020-02-17 05:53] VITALS: BP 120/45
--- NOTE | 2020-02-17 07:23 | NUR ---
PT RESTING IN BED WITH EYES OPEN CALL LIGHT IN REACH NO PROBLEMS WILL MONITER
[2020-02-17 12:30] VITALS: BP 120/56
[2020-02-17 18:21] VITALS: BP 125/50
[2020-02-17 19:50] VITALS: BP 121/44
--- NOTE | 2020-02-17 20:09 | NUR ---
AWAKE AND RESTING IN BED. RESPIRATIONS UNLABORED. MAHURKAR DIALYSIS ACCESS INTACT. O2/2.5L ON PER NASAL CANNULA. NOTED SIGNIFICANT RIGHT SIDED WEAKNESS R/T CVA. NO DISTRESS NOTED. CALL LIGHT IN REACH.
[2020-02-18 00:12] VITALS: BP 148/44
--- NOTE | 2020-02-18 01:29 | NUR ---
RESTING QUIETLY, RESPIRATIONS UNLABORED. NO DISTRESS NOTED.
--- NOTE | 2020-02-18 05:41 | NUR ---
QUIET HOURS. REPOSITIONED IN BED FOR COMFORT. NO ACUTE CHANGES IN CONDITION THIS SHIFT.
[2020-02-18 05:59] VITALS: BP 124/40
--- NOTE | 2020-02-18 09:00 | NUR ---
PATIENT IS VERY CONFUSED. HELPED UP TO WHEELCHAIR AT BEDSIDE TO EAT BREAKFAST. BED/CHAIR ALARM ON. CALL LIGHT WITHIN REACH. PATIENT ABLE TO FEED SELF WITH CUEING.
--- NOTE | 2020-02-18 10:09 | NUR ---
PATIENT IS ALERT/ORIENT. CALL LIGHT WITHIN REACH. OXYGEN ON AT 2.5 LITERS PER N/C. VOICES NO NEEDS AT THIS TIME.
[2020-02-18 12:00] VITALS: BP 136/46
--- NOTE | 2020-02-18 13:45 | NUR ---
PATIENT USING CALL LIGHT FOR NEEDS. TURNED SUPERVISOR ADVERTISING DISPATCH CLERKS LIGHT TO USE BEDPAN.
[2020-02-18 18:00] VITALS: BP 159/53
--- NOTE | 2020-02-18 18:07 | NUR ---
PATIENT HAS A VISITOR IN ROOM. SITING UP IN BED EATTING SUPPER. VOICES NO NEEDS
[2020-02-18 19:40] VITALS: BP 160/52
--- NOTE | 2020-02-18 19:44 | NUR ---
AWAKE AND ALERT. RESTING IN BED WITH RESPIRATIONS UNLABORED. LEFT CHEST MAHURKAR INTACT. NOTED RIGHT SIDE FLACCID. SPEECH SLIGHTLY SLURRED BUT IS ABLE TO MAKE NEEDS CLEAR AND KNOWN. O2/2.5L ON PER NASAL CANNULA. NO ACUTE DISTRESS NOTED.
[2020-02-18 23:55] VITALS: BP 154/46
--- NOTE | 2020-02-18 23:56 | NUR ---
VITAL SIGNS TAKEN. AFEBRILE. REPOSITIONED FOR COMFORT. NO DISTRESS NOTED.
--- NOTE | 2020-02-19 05:29 | NUR ---
RESTING QUIETLY. NO ACUTE CHANGES IN CONDITION THIS SHIFT. O2/2.5L ON PER NASAL CANNULA. CALL LIGHT IN REACH.
[2020-02-19 06:32] VITALS: BP 144/48
--- NOTE | 2020-02-19 07:24 | NUR ---
ALERT AND ORIENTED WITH PERIODS OF CONFUSION. DIALYSIS MWF. WEARS BOOT L LEG WHEN UP. HAS MAHURKER L CHEST FOR DIALYSIS. INCONT. TOTAL CARE.
[2020-02-19 07:26] LABS: ANION GAP 20.4 mmol/L (8-16); CALCIUM 8.7 mg/dL (8.5-10.1); CARBON DIOXIDE 22.2 mmol/L (21.0-32.0); CREATININE - SERUM 10.1 mg/dL (0.6-1.3); POTASSIUM - SERUM 3.6 mmol/L (3.5-5.1)
[2020-02-19 07:39] LABS: BASOPHILS 0.2 % (0-2); EOSINOPHILS 1.1 % (0-7); HEMATOCRIT 29.7 % (36.0-48.0); HEMOGLOBIN 9.5 g/dL (12-16); IMMATURE GRANULOCYTES 0.3 % (0-5); LYMPHOCYTES 34.3 % (15-50); MCH 30.4 pg (26.0-34.0); MCV 95.2 fL (80.0-100.0); MEAN PLATELET VOLUME 12.4 fL (7.4-10.4); MONOCYTES 9.3 % (2-11); NEUTROPHILS 54.8 % (40-80); PLATELET COUNT 183 10x3/uL (130-400); RBC 3.12 10x6/uL (4.00-5.40); RDW 15.9 % (11.5-14.5); WBC 13.3 10x3/uL (4.8-10.8)
--- NOTE | 2020-02-19 11:40 | NUR ---
SHOWER GIVEN THIS AM PER NURSING. IN THERAPY AT THIS TIME.
[2020-02-19 12:20] VITALS: BP 141/47
--- NOTE | 2020-02-19 14:05 | NUR ---
IN DIALYSIS. TOOK BY BED AT 1330.
--- NOTE | 2020-02-19 14:49 | NUR ---
PATIENT IS A CLIENT OF [facility]. WILL CONTINUE TO FOLLOW WITH PATIENT.
--- NOTE | 2020-02-19 14:50 | NUR ---
BACK IN THERAPY. NO C/O PAIN.
--- NOTE | 2020-02-19 16:03 | NUR ---
Nutrition Follow-up: Patient of [facility] at HD at time of RD visit. Chart reviewed. Pt ESRD on HD MWF. Diet: Renal ADA Mech Soft, chopped meats and thin liquids PO intake: ~53% average x last 9 meals Last BM: 02/17/20. Wt: 192# (02/19/20); Admit Wt: 200# (02/15/20) Meds noted: Januvia. Labs noted: Na 132(L), BUN 64(H), Cr 10.1(H), GFR 4(L) Recommend continue current diet. Will add Nepro TID. RD following.
--- NOTE | 2020-02-19 17:48 | NUR ---
BACK FROM DIALYSIS/ BP 133/56.
--- NOTE | 2020-02-19 17:55 | NUR ---
NO CHANGE IN ASSESSMENT. CL IN REACH. REPOSITIONED UP IN BED.
--- NOTE | 2020-02-19 20:27 | NUR ---
AWAKE AND ALERT. RESTING IN BED WITH NO DISTRESS NOTED. LEFT CHEST MUHURKAR IN PLACE. NOTED RIGHT SIDED FLACCID. HOB ELEVATED. CALL LIGHT IN REACH.
[2020-02-19 21:14] VITALS: BP 163/49
--- NOTE | 2020-02-20 00:10 | NUR ---
RESTING QUIETLY WITH RESPIRATIONS UNLABORED ON 07/23.5L PER NASAL CANNULA. NO DISTRESS NOTED.
--- NOTE | 2020-02-20 03:04 | NUR ---
CONTINUES SLEEPING WITH RESPIRATIONS UNLABORED. NO DISTRESS NOTED.
--- NOTE | 2020-02-20 05:29 | NUR ---
QUIET HOURS. NO ACUTE CHANGES IN CONDITION THIS SHIFT. RESTING IN BED WITH NO DISTRESS NOTED.
[2020-02-20 05:43] VITALS: BP 143/45
--- NOTE | 2020-02-20 07:37 | NUR ---
PT RESTING IN BED WITH EYES OPEN CALL LIGHT IN REACH WILL MONITER
--- NOTE | 2020-02-20 10:00 | NUR ---
I have reviewed this patient and I concur with the Shift Assessment completed by the Licensed Practical Nurse today this shift.
[2020-02-20 12:01] VITALS: BP 135/47
--- NOTE | 2020-02-20 18:31 | NUR ---
PT RESTING IN BED WITH EYES OPEN CALL LIGHT IN REACH NO PROBLEMS WILL MONITER
--- NOTE | 2020-02-20 19:05 | NUR ---
RECEIVED PT LYING IN BED EYES CLOSED RESTING. EASILY AROUSED WITH VERBAL STIMULI. DENIES ANY NEEDS OR PAIN. NO SIGNS OF ACUTE DISTRESS NOTED. CALL LIGHT WITHIN REACH. FALL PRECAUTIONS IN PLACE. CPOC
[2020-02-20 19:58] VITALS: BP 169/58
--- NOTE | 2020-02-20 23:37 | NUR ---
PT LYING IN BED ON RIGHT SIDE EYES CLOSED RESTING QUIETLY. RR EVEN AND UNLABORED. CALL LIGHT WITHIN REACH. FALL PRECAUTIONS IN PLACE. CPOC
[2020-02-21 00:20] VITALS: BP 122/52
--- NOTE | 2020-02-21 01:17 | NUR ---
PT LYING IN BED ON RIGHT SIDE EYES CLOSED RESTING. NO SIGNS OF ACUTE DISTRESS NOTED. CONTINUES ON 2L VIA NC. CALL LIGHT WITHIN REACH. WILL CONTINUE TO MONITOR
--- NOTE | 2020-02-21 04:13 | NUR ---
PT LYING IN BED ON RIGHT SIDE EYES CLOSED RESTING. NO SIGNS OF ACUTE DISTRESS NOTED. CALL LIGHT WITHIN REACH. WILL CONTINUE TO MONITOR
[2020-02-21 06:13] VITALS: BP 190/63
[2020-02-21 06:34] LABS: BASOPHILS 0.2 % (0-2); EOSINOPHILS 1.9 % (0-7); HEMATOCRIT 29.1 % (36.0-48.0); HEMOGLOBIN 9.4 g/dL (12-16); IMMATURE GRANULOCYTES 0.6 % (0-5); LYMPHOCYTES 36.4 % (15-50); MCH 30.2 pg (26.0-34.0); MCHC 32.3 g/dL (31.0-37.0); MCV 93.6 fL (80.0-100.0); MEAN PLATELET VOLUME 11.9 fL (7.4-10.4); MONOCYTES 9.7 % (2-11); NEUTROPHILS 51.2 % (40-80); PLATELET COUNT 199 10x3/uL (130-400); RBC 3.11 10x6/uL (4.00-5.40); RDW 15.5 % (11.5-14.5); WBC 11.2 10x3/uL (4.8-10.8)
[2020-02-21 07:13] LABS: ANION GAP 18.1 mmol/L (8-16); CALCIUM 8.8 mg/dL (8.5-10.1); CARBON DIOXIDE 23.1 mmol/L (21.0-32.0); CREATININE - SERUM 9.7 mg/dL (0.6-1.3); POTASSIUM - SERUM 3.2 mmol/L (3.5-5.1)
[2020-02-21 12:04] VITALS: BP 132/89
[2020-02-21 12:20] VITALS: BP 129/52
--- NOTE | 2020-02-21 13:50 | NUR ---
CARE TEAM MEETING: PATIENT IS PROGRESSING IN THERAPY. HER TENATIVE DISCHARGE IS 03/12/20. DISCHARGE PLANS ARE FOR HER TO RETURN TO HER HOME. WILL CONTINUE TO FOLLOW WITH PATIENT.
--- NOTE | 2020-02-21 17:14 | RHP ---
PATIENT: TYLER B[place] MEDICAL RECORD: [id number] ACCOUNT: [id number] LOCATION:[facility] : 45 ADMISSION DATE: 02/14/20 REHABILITATION HISTORY AND PHYSICAL EXAMINATION POST ADMISSION PHYSICIAN EXAMINATION ADMITTING DIAGNOSIS: CVA. HISTORY OF PRESENT ILLNESS: The patient is admitted secondary to an acute ischemic stroke involving the left medial temporal lobe, splenium of the corpus callosum, left middle cerebral peduncle due to a large vessel disease with noted dysphagia and dysarthria speech. She is a 75-year-old female patient presented to the ER via EMS with a recent CVA. She was discharged home without having received any therapy. She was set up on 02/07. She has also had a recent GI bleed and hospitalized at times. She has been having some hemodialysis due to end-stage renal disease. She has been followed by nephrology during her stay and continued hemodialysis. She has also been receiving PT, speech therapy and occupational therapy secondary to her oropharyngeal dysphagia and she has been progressing quite slowly. She is currently on supplemental O2, electrolyte protocol. They are monitoring for pain control, monitor for recent seizure activity, monitoring her blood sugars. She has got new onset incontinence of bowel and bladder. She has also had a recent GI bleed. She is on new end-stage renal disease, on hemodialysis. She was also recently found to have a fracture of her left foot of undetermined age. She has got proximal muscle weakness, balance deficits, decreased activity tolerance, impaired mobility, decreased range of motion, gait disturbance. She is a medical complex and risk for falls and unsteady gait, balance, fatigues easily. These are all barriers to her discharge home. She was living alone prior to this, recent hospitalizations and recently moved into her daughter's property. She was independent with her ADLs and mobility with use of a rolling walker and recent illness. She is currently setup for max assist for ADLs, mod assist to max assist for mobility and use of a rolling walker and also a boot to her left foot. She and her family would like for her to be able to return home as close to her prior level of functioning as possible and also be set up for home health who can continue her therapy. COMORBIDITIES: In this patient include weakness, oropharyngeal dysphagia, dysarthria speak, anemia, dependence on renal dialysis, chronic kidney disease, functional quadriplegia, weakness and dementia. PAST MEDICAL HISTORY: Significant for CVA, diabetes, thyroid problems, CHF, coronary artery disease, peripheral vascular disease, pneumonia, osteoporosis, depression and former tobacco use. PAST SURGICAL HISTORY: Includes gallbladder, hysterectomy. She has had bilateral carotid endarterectomies, left knee surgery and a trach in the past. ALLERGIES: MORPHINE, CODEINE AND ADHESIVE TAPE. CURRENT MEDICATIONS: Include Januvia 100 mg daily, metoprolol 100 mg daily, Plavix 75 mg daily, citalopram 20 mg daily, atorvastatin 80 mg daily, amlodipine 5 mg daily, she is on heparin injection for dialysis, she is on Protonix 40 mg daily, Synthroid 100 mcg daily, Carafate 1 gm before meals and at bedtime, Requip 0.5 mg at bedtime, Nitrostat 0.4 mg every 5 minutes p.r.n. chest pain up to 3 doses, Sontag 5/325 one tab every 4 hours p.r.n. and aspirin chewable 81 mg HISTORY AND PHYSICAL [id number] [place] daily. HABITS: Does have a distant history of tobacco use. FAMILY HISTORY: Noncontributory. SOCIAL HISTORY: The patient once again hopes to return home and get back to her prior level of functioning. REVIEW OF SYSTEMS: GENERAL: Does complain of weakness and fatigue. HEENT: Denies cold, cough, or congestion. CARDIOVASCULAR: Denies any chest pain. PHYSICAL EXAMINATION: VITAL SIGNS: Stable, afebrile. GENERAL: A somewhat morbidly obese female in no acute distress upon exam. HEENT: Normocephalic and atraumatic. Mucosa moist. NECK: Supple. No lymphadenopathy. LUNGS: Clear in upper nunez with no wheezing or rales. HEART: Regular rate and rhythm. No murmurs, rubs, or gallops. ABDOMEN: Soft, benign, and nondistended. She was noted to be somewhat obese. EXTREMITIES: No clubbing, cyanosis or edema. NEUROLOGIC: She does have noted weakness and also she has some problems with cognition. LABORATORY DATA: White count is 11.9, H&H of 10.7 and 33.9 and platelet count is 176. Sodium 137, potassium 3.7, BUN and creatinine of 31 and 4.9 and blood sugar is noted to be 117. ASSESSMENT: This is a 75-year-old female patient admitted to the rehab with a working diagnosis of new-onset cerebrovascular accident. The patient has potential to make improvement. We instituted the following multidisciplinary therapies, including not limited to physical, occupational, respiratory, speech, nutritional services, prosthetics and orthotics. Given her complex medical condition and risks for more complications, rehabilitation services cannot be provided at a low level of care such a retirement facility. PLAN: 1. Admit to [facility] for inpatient therapy to include the following disciplines: A. Physical therapy to improve gait, all transfer skills and bed mobility to a modified independent level. B. Occupational therapy to improve activities of daily living. C. Case management to help with discharge planning and placement options. D. Nutrition to assist with nutritional needs. E. Rehabilitation nursing to assist in monitoring the patient's underlying medical conditions and to assist with any type of bowel or bladder management. 2. The patient's current medication and medical care will be continued. 3. Placed on standard fall precautions. 4. The patient's estimated length of stay is approximately 7-10 days. 5. We will discuss the patient during care team staff meeting this week. We will continue on medications where appropriate. I am going to see again in the a.m. We will consult neurology again if any problems arise and we will keep up-to-date with this patient's family. HISTORY AND PHYSICAL [id number] [place]ER B[place] DEVI TRANSINT:[id number] Voice Confirmation ID: [id number] DOCUMENT ID: [id number] 02/21/20 Edited for misty ALLEN. ALEJANDRO notes whether there has been none or any medical/functional change since admission: - No change since preadmission screen. ALEJANDRO attests patient continues to be appropriate for IRF: - Continues to be appropriate. ADITYA BORJA MD at 1714 CC: [id number] DICTATION DATE: 02/15/20 0842 MEDICAL REIMBURSEMENT MANAGER: 02/15/20 0915 ADM IN [facility] [address] [place] [address]
--- NOTE | 2020-02-21 19:10 | NUR ---
TRANSPORTED PT VIA BED FROM DIALYSIS BACK TO FLOOR. NO SIGNS OF ACUTE DISTRESS NOTED. DENIES ANY NEEDS OR PAIN. 2L REMOVED PER DIALYSIS NURSE RONI. VS STABLE. CALL LIGHT AND WATER WITHIN REACH. FALL PRECAUTIONS IN PLACE. CPOC
[2020-02-21 21:41] VITALS: BP 163/52
--- NOTE | 2020-02-22 01:09 | NUR ---
PT LYING IN BED EYES CLOSED RESTING COMFORTABLY. RR EVEN AND UNLABORED. CALL LIGHT WITHIN REACH. FALL PRECAUTIONS IN PLACE. CPOC
[2020-02-22 06:09] VITALS: BP 127/52
--- NOTE | 2020-02-22 06:32 | NUR ---
PT LYING IN BED EYES CLOSED RESTING QUIETLY. RR EVEN AND UNLABORED. CALL LIGHT WITHIN REACH. FALL PRECAUTIONS IN PLACE. CPOC
--- NOTE | 2020-02-22 08:46 | NUR ---
SHE IS ALERT, TALKS, TOOK HER MEDICATIONS WITHOUT ANY PROBLEMS. SHE CAN NOT MOVE THE RIGHT ARM OR THE RIGHT LEG. THE CALL LIGHT IS WITHIN REACH. THE BED ALARM IS ON.
[2020-02-22 10:12] LABS: HEP B CORE AB TOTAL Negative (Negative); HEPATITIS C ANTIBODY <0.1 S/CO RAT (0.0-0.9)
[2020-02-22 11:45] VITALS: BP 113/46
--- NOTE | 2020-02-22 13:08 | NUR ---
Nutrition Follow-up: Diet: Renal ADA Soft Mech Chopped Meats, thin liquids PO intake: 50% x 3 meals recorded on 02/20/20- no PO intake recorded recently. She states that her appetite is poor. States that she is trying to eat. She is drinking Nepro TID. Last BM: 02/20/20. Wt: 191# (02/22/20); Admit Wt: 190# (02/15/20) Meds noted: januvia Labs noted: Na 129(L), K 3.2(L), BUN 62(H), Cr 9.7(H), GFR 4(L) Recommend: -MD check new PO4 labs. If PO4 WNL recommend liberate diet to Diabetic, low sodium diet to encourage PO intake, as potassium has been low lately. -Continue Nepro TID-- enocurage PO intake -RD following.
--- NOTE | 2020-02-22 20:00 | NUR ---
AWAKE AND ALERT. RESTING IN BED WITH RESPRIAITONS UNLABORED. MURHAKAR LINE INTACT TO LEFT CHEST. NOTED RIGHT ARM AND LEG FLACCED. SPEACH CLEAR. NO NEEDS VOICED. NO ACUTE DISTRESS NOTED.
[2020-02-22 20:44] VITALS: BP 120/57
[2020-02-23 00:24] VITALS: BP 148/45
--- NOTE | 2020-02-23 01:55 | NUR ---
SLEEPING WITH RESPRIATIONS UNLABORED. NO DISTRESS NOTED. CALL LIGHT IN REACH.
--- NOTE | 2020-02-23 03:29 | NUR ---
CONTINUES SLEEPING WITH NO DISTRESS NOTED.
--- NOTE | 2020-02-23 05:16 | NUR ---
QUIET HOURS. NO ACUTE CHANGES IN CONDITION THIS SHIFT. RESTING IN BED WITH NO DISTRESS NOTED.
[2020-02-23 06:23] VITALS: BP 151/46
[2020-02-23 07:23] LABS: HEMATOCRIT 29.8 % (36.0-48.0); HEMOGLOBIN 9.7 g/dL (12-16); LYMPHOCYTES 39.1 % (15-50); MCH 31.3 pg (26.0-34.0); MCHC 32.6 g/dL (31.0-37.0); MCV 96.1 fL (80.0-100.0); MEAN PLATELET VOLUME 11.9 fL (7.4-10.4); NEUTROPHILS 50.4 % (40-80); PLATELET COUNT 178 10x3/uL (130-400); RDW 15.9 % (11.5-14.5); WBC 11.3 10x3/uL (4.8-10.8)
[2020-02-23 07:34] LABS: ANION GAP 17.1 mmol/L (8-16); CREATININE - SERUM 8.8 mg/dL (0.6-1.3); POTASSIUM - SERUM 3.1 mmol/L (3.5-5.1)
--- NOTE | 2020-02-23 07:45 | NUR ---
PT RESTING IN BED WITH EYES OPEN CALL LIGHT IN REACH NO PROBLEMS WILL MONITER
[2020-02-23 12:09] VITALS: BP 129/50
[2020-02-23 18:07] VITALS: BP 128/62
--- NOTE | 2020-02-23 18:11 | NUR ---
PT RESTING IN BED WITH EYES OPEN CALL LIGHT IN REACH WILL MONITER
--- NOTE | 2020-02-23 18:53 | NUR ---
RECEIVED PT LYING IN BED ON RIGHT SIDE EYES CLOSED RESTING. EASILY AROUSED WITH STIMULI. DENIES ANY NEEDS OR PAIN. NO SIGNS OF ACUTE DISTRESS NOTED. CALL LIGHT AND WATER WITHIN REACH. FALL PRECAUTIONS IN PLACE. CPOC
[2020-02-24 00:21] VITALS: BP 122/60
--- NOTE | 2020-02-24 01:08 | NUR ---
PT LYING IN BED ON LEFT SIDE EYES CLOSED RESTING QUIETLY. RR EVEN AND UNLABORED. CALL LIGHT WITHIN REACH. CPOC
--- NOTE | 2020-02-24 03:47 | NUR ---
PT LYING IN BED EYES CLOSED RESTING. NO SIGNS OF ACUTE DISTRESS NOTED. CALL LIGHT WITHIN REACH. WILL CONTINUE TO MONITOR
[2020-02-24 05:54] VITALS: BP 166/50
[2020-02-24 07:50] VITALS: BP 139/45
--- NOTE | 2020-02-24 07:55 | NUR ---
SHE IS ALERT, TALKING. TOOK HER MEDICATIONS WITHOUT ANY PROBLEMS. SHE CAN NOT MOVE HER RIGHT ARM OR RIGHT LEG. SHE LEFT FOOT IS IN A WALKING BOOT. THE CALL LIGHT IS WITHIN REACH AND THE BED ALARM IS ON.
[2020-02-24 13:48] VITALS: BP 172/58
[2020-02-24 18:00] VITALS: BP 166/53
--- NOTE | 2020-02-24 19:10 | NUR ---
RECEIVED PT LYING IN BED EYES CLOSED RESTING COMFORTABLY. EASILY AROUSED WITH VERBAL STIMULI. DENIES ANY NEEDS OR PAIN. VS STABLE. SHIFT ASSESSMENT COMPLETE. LEFT CHEST MAHURKAR WITHOUT REDNESS OR SWELLING. DRESSING INTACT. CALL LIGTH AND WATER WITHIN REACH. FALL PRECAUTIONS IN PLACE. CPOC
[2020-02-25 00:12] VITALS: BP 153/50
--- NOTE | 2020-02-25 01:25 | NUR ---
PT LYING IN BED ON LEFT SIDE EYES CLOSED RESTING. RR EVEN AND UNLABORED. CALL LIGHT AND WATER WITHIN REACH. FALL PRECAUTIONS IN PLACE. CPOC
--- NOTE | 2020-02-25 03:42 | NUR ---
PT LYING IN BED ON RIGHT SIDE EYES CLOSED RESTING. NO SIGNS OF ACUTE DISTRESS NOTED. CALL LIGHT WITHIN REACH. FALL PRECAUTIONS IN PLACE. CPOC
[2020-02-25 06:16] VITALS: BP 153/55
--- NOTE | 2020-02-25 06:38 | NUR ---
PT LYING IN BED SUPINE EYES CLOSED RESTING. HOB ELEVATED. NO ACUTE CHANGES IN CONDITION THIS SHIFT. CALL LIGHT WITHIN REACH. CPOC
[2020-02-25 08:02] VITALS: BP 173/64
--- NOTE | 2020-02-25 08:06 | NUR ---
SHE IS ALART, TALKING. TOOK MEDICATIONS WITHOUT ANY PROBLEMS. SHE CAN NOT MOVE HER RIGHT ARM OR LEG. THE CALL LIGHT IS WITHIN REACH.
[2020-02-25 12:58] VITALS: BP 177/64
[2020-02-25 17:38] VITALS: BP 156/58
--- NOTE | 2020-02-25 19:06 | NUR ---
RECEIVED PT LYING IN BED ON RIGHT SIDE EYES CLOSED RESTING. EASILY AROUSED WITH VERBAL STIMULI. DENIES ANY PAIN OR NEEDS. VS STABLE. SHIFT ASSESSMENT COMPLETE. RIGHT CHEST MAHURKAR WITHOUT REDNESS OR SWELLING. DRESSING AND SWAB CAPS INTACT. CALL LIGHT AND WATER WITHIN REACH. FALL PRECAUTIONS IN PLACE. CPOC
[2020-02-26 00:15] VITALS: BP 138/55
--- NOTE | 2020-02-26 01:43 | NUR ---
PT LYING IN BED ON RIGHT SIDE EYES CLOSED RESTING. RR EVEN AND UNLABORED. CALL LIGHT WITHIN REACH. WILL CONTINUE TO MONITOR
--- NOTE | 2020-02-26 03:54 | NUR ---
PT APPEARS TO STILL BE SLEEPING COMFORTABLY. NO SIGNS OF ACUTE DISTRESS NOTED. CALL LIGHT WITHIN REACH. BRIEF CLEAN AND DRY. WILL CONTINUE TO MONITOR
[2020-02-26 05:57] VITALS: BP 164/69
--- NOTE | 2020-02-26 05:59 | NUR ---
PT LYING IN BED AWAKE. VS STABLE. DENIES ANY PAIN. BEDPAN PROVIDED SMALL URINE OUTPUT. AM MEDS GIVEN WITHOUT DIFFICULTY. REPOSITIONED TO RIGHT SIDE USING PILLOWS. NO OTHER NEEDS VOICED. CALL LIGHT WITHIN REACH. WILL CONTINUE TO MONITOR
[2020-02-26 07:18] LABS: BASOPHILS 0.2 % (0-2); EOSINOPHILS 2.2 % (0-7); HEMATOCRIT 31.2 % (36.0-48.0); HEMOGLOBIN 9.8 g/dL (12-16); IMMATURE GRANULOCYTES 0.4 % (0-5); LYMPHOCYTES 38.6 % (15-50); MCH 30.4 pg (26.0-34.0); MCHC 31.4 g/dL (31.0-37.0); MCV 96.9 fL (80.0-100.0); MEAN PLATELET VOLUME 11.2 fL (7.4-10.4); MONOCYTES 8.8 % (2-11); NEUTROPHILS 49.8 % (40-80); RBC 3.22 10x6/uL (4.00-5.40); RDW 15.9 % (11.5-14.5); WBC 11.6 10x3/uL (4.8-10.8)
[2020-02-26 07:23] LABS: PLATELET COUNT 225 10x3/uL (130-400)
[2020-02-26 07:25] LABS: ANION GAP 17.7 mmol/L (8-16); CALCIUM 9.1 mg/dL (8.5-10.1); CARBON DIOXIDE 23.4 mmol/L (21.0-32.0); CREATININE - SERUM 10.4 mg/dL (0.6-1.3); POTASSIUM - SERUM 4.1 mmol/L (3.5-5.1)
--- NOTE | 2020-02-26 08:50 | NUR ---
REPOSITIONED UP IN BED. NO DISTRESS NOTED. CL IN REACH.
--- NOTE | 2020-02-26 11:05 | NUR ---
SITTING IN WC WO C/O PAIN. CL IN REACH.
[2020-02-26 11:53] VITALS: BP 149/50
--- NOTE | 2020-02-26 14:45 | NUR ---
PATIENT IS IN DIALYSIS.
[2020-02-26 18:32] VITALS: BP 172/61
--- NOTE | 2020-02-26 19:31 | NUR ---
PT IN BED, NO IMMEDIATE NEEDS NOTED, RESPIRATIONS EVEN/UNLABORED, USES CALL/LIGHT, PRECAUTIONS IN PLACE, FLUIDS/CALL LIGHT WITHIN REACH
[2020-02-26 21:23] VITALS: BP 181/67
[2020-02-27 00:12] VITALS: BP 109/39
--- NOTE | 2020-02-27 02:38 | NUR ---
PT ASLEEP, AROUSES EASILY TO VOICE, NO IMMEDIATE NEEDS NOTED, FALL PRECAUTIONS IN PLACE, RESPIRATIONS EVEN/UNLABORED, FLUIDS/CALL LIGHT WITHIN REACH
[2020-02-27 05:59] VITALS: BP 117/63
[2020-02-27 12:12] VITALS: BP 144/51
--- NOTE | 2020-02-27 18:16 | NUR ---
PT RESTING IN BED WITH EYES OPEN CALL LIGHT IN REACH WILL MONITER
--- NOTE | 2020-02-27 19:35 | NUR ---
PT IN BED ASLEEP,NO IMMEDIATE NEEDS NOTED, FALL PRECAUTIONS IN PLACE PLACE, RESPIRATIONS EVEN/UNLABORED, FLUIDS/CALL LIGHT WITHIN REACH
[2020-02-27 21:12] VITALS: BP 170/60
--- NOTE | 2020-02-28 01:10 | NUR ---
PT IN BED ASLEEP,NO IMMEDIATE NEEDS NOTED, FALL PRECAUTIONS IN PLACE PLACE, RESPIRATIONS EVEN/UNLABORED, FLUIDS/CALL LIGHT WITHIN REACH
[2020-02-28 06:25] LABS: ANION GAP 18.6 mmol/L (8-16); CARBON DIOXIDE 21.6 mmol/L (21.0-32.0); CREATININE - SERUM 10.6 mg/dL (0.6-1.3); POTASSIUM - SERUM 4.2 mmol/L (3.5-5.1)
[2020-02-28 06:29] LABS: BASOPHILS 0.2 % (0-2); EOSINOPHILS 1.4 % (0-7); HEMATOCRIT 29.9 % (36.0-48.0); HEMOGLOBIN 9.3 g/dL (12-16); IMMATURE GRANULOCYTES 0.4 % (0-5); MCHC 31.1 g/dL (31.0-37.0); MCV 96.5 fL (80.0-100.0); MEAN PLATELET VOLUME 11.4 fL (7.4-10.4); MONOCYTES 8.5 % (2-11); NEUTROPHILS 49.5 % (40-80); PLATELET COUNT 208 10x3/uL (130-400); WBC 12.3 10x3/uL (4.8-10.8)
[2020-02-28 07:22] VITALS: BP 161/61
--- NOTE | 2020-02-28 12:00 | NUR ---
I have reviewed this patient and I concur with the Shift Assessment completed by the Licensed Practical Nurse today this shift.
[2020-02-28 12:10] VITALS: BP 113/38
--- NOTE | 2020-02-28 13:56 | NUR ---
Nutrition Follow-up: Fair PO intake. Drinking Nepro. HD today. Diet: Renal ADA, Soft Mechanical with Chopped Meats, Nepro TID PO intake: 59% avg x 6 meals (50-80%) Wt: 194# (02/27); 190.8# (02/19) Labs noted: Na 130, K+ 4.2, Glu 113 Meds noted: KDur, Januvia, Protonix, Carafate -Encourage PO intake and honor food preferences within diet restrictions. -Monitor wt; noted daily wts ordered. -RD following.
--- NOTE | 2020-02-28 15:26 | NUR ---
CARE TEAM MEETING: PATIENT IS PROGRESSING IN THERAPY. HER TENATIVE DC DATE IS 03/12/20. PATIENT WILL BE RA AT NEXT MEETING. WILL CONTINUE TO FOLLOW WITH PATIENT.
--- NOTE | 2020-02-28 18:22 | NUR ---
PT RESTIN G IN BED WITH EYES OPEN CALL LIGHT IN REACH WILL MONITER
--- NOTE | 2020-02-28 19:30 | NUR ---
PT ON BED BUTLER, NO OTHER NEEDS NOTED, RESPIRATIONS EVEN/UNLABORED, FALL PRECAUTIONS IN PLACE, FLUIDS/CALL LIGHT WITHIN REACH, USES CALL LIGHT, CHAIRFAST
[2020-02-28 19:43] VITALS: BP 157/49
[2020-02-29 01:43] VITALS: BP 168/56
[2020-02-29 06:29] VITALS: BP 152/63
[2020-02-29 12:01] VITALS: BP 143/45
--- NOTE | 2020-02-29 16:57 | NUR ---
PT IS COMPLAINING OF NAUSEA AFTER DIALYSIS AND WOULD LIKE TO NOT TAKE THESE LAST TWO MEDICATIONS PROTONIX AND CARAFATE
[2020-02-29 18:03] VITALS: BP 145/54
[2020-02-29 18:24] VITALS: BP 158/52
--- NOTE | 2020-02-29 19:29 | NUR ---
PT IN BED, NO IMMEDIATE NEEDS NOTED, RESPIRATIONS EVEN/UNLABORED, SAFETY PRECAUTIONS IN PLACE, FLUIDS/CALL LIGHT WITHIN REACH,
[2020-02-29 19:49] VITALS: BP 158/52
[2020-03-01 00:17] VITALS: BP 141/66
--- NOTE | 2020-03-01 01:12 | NUR ---
PT ASLEEP, AROUSES EASILY TO VOICE, RESPIRATIONS EVEN/UNLABORED, SAFETY PRECAUTIONS IN PLACE, NO IMMEDIATE NEEDS NOTED, FLUIDS/CALL LIGHT WITHIN REACH
[2020-03-01 05:40] VITALS: BP 154/64
[2020-03-01 08:01] LABS: BASOPHILS 0.2 % (0-2); EOSINOPHILS 1.8 % (0-7); HEMATOCRIT 33.3 % (36.0-48.0); HEMOGLOBIN 10.4 g/dL (12-16); IMMATURE GRANULOCYTES 0.5 % (0-5); MCH 30.3 pg (26.0-34.0); MCHC 31.2 g/dL (31.0-37.0); MCV 97.1 fL (80.0-100.0); MEAN PLATELET VOLUME 10.4 fL (7.4-10.4); MONOCYTES 9.3 % (2-11); NEUTROPHILS 48.2 % (40-80); PLATELET COUNT 204 10x3/uL (130-400); RBC 3.43 10x6/uL (4.00-5.40); RDW 16.2 % (11.5-14.5); WBC 10.7 10x3/uL (4.8-10.8)
--- NOTE | 2020-03-01 08:08 | NUR ---
SHE HAS BEEN UP WITH 2 PEOPLE ASSIST TO THE BATHROOM. SHE TOOK HER MEDICATIONS WITHOUT ANY PROBLEMS. THE CALL LIGHT IS [employer] REACH AND THE BED ALARM IS ON.
[2020-03-01 08:10] LABS: ANION GAP 16.8 mmol/L (8-16); CALCIUM 9.2 mg/dL (8.5-10.1); CARBON DIOXIDE 24.3 mmol/L (21.0-32.0); POTASSIUM - SERUM 4.1 mmol/L (3.5-5.1)
[2020-03-01 11:18] VITALS: BP 157/51
[2020-03-01 16:59] VITALS: BP 168/57
--- NOTE | 2020-03-01 20:00 | NUR ---
PATIENT RECEIVED SITTING UP IN BED. AT BEDSIDE. MENU FILLED OUT. ASSESSMENT DONE. NO C/O PAIN OR DISTRESS. BED LOW. CALL LIGHT WITHIN REACH. WILL CONTINUE TO MONITOR.
[2020-03-01 20:39] VITALS: BP 134/56
--- NOTE | 2020-03-01 23:01 | NUR ---
I have reviewed this patient and I concur with the Shift Assessment completed by the Licensed Practical Nurse today this shift.
[2020-03-02 00:40] VITALS: BP 168/60
--- NOTE | 2020-03-02 01:05 | NUR ---
PATIENT USED CALL LIGHT FOR ASSIST. PATIENT TURNED & BED BUTLER PLACED UNDER BUTTOCKS. VOID ONLY. THIS NURSE & CHARGE NURSE USED DRAW SHEET TO PULL PATIENT UP IN BED. CALL LIGHT WITHIN REACH. WILL CONTINUE TO MONITOR.
--- NOTE | 2020-03-02 01:21 | NUR ---
PATIENT HAD INCONTINENT URINE IN PAD ON ROUND. THIS NURSE & CHARGE NURSE TURNED & CHANGED PATIENT. PATIENT PERIAREA & BUTTOCKS CLEANED. NEW PADS UNDER AREAS. PATIENT TURNED TO RIGHT SIDE & PILLOW UNDER LEFT BUTTOCK. BED LOW. ALARM ON. CALL LIGHT WITHIN REACH. WILL CONTINUE TO MONITOR.
--- NOTE | 2020-03-02 06:25 | NUR ---
PATIENT BED UNABLE TO WEIGH. ZERO OUT IF PATIENT GETS OUT OF BED. CALL LIGHT WITHIN REACH. WILL CONTINUE TO MONITOR.
[2020-03-02 06:26] VITALS: BP 143/56
--- NOTE | 2020-03-02 08:00 | NUR ---
PT RESTING IN BED WITH EYES OPEN CALL LIGHT IN REACH NO PROBLEMS WILL MONITER
--- NOTE | 2020-03-02 14:27 | NUR ---
PT TAKEN TO DIALYSIS IN BED WITH CHART
--- NOTE | 2020-03-02 17:30 | NUR ---
PT RETURNED FROM DIALYSIS VIA BED PT TOLERATED WELL PT SET UP IN ROOM WITH CALL LIGHT IN REACH WILL THAD
--- NOTE | 2020-03-02 18:20 | NUR ---
PT RESTING IN BED WITH EYES OPEN CALL LIGHT IN REACH WILL MONITER
[2020-03-02 18:23] VITALS: BP 138/68
--- NOTE | 2020-03-02 19:55 | NUR ---
PATIENT RECEIVED LAYING IN BED. ASSESSMENT & VITAL SIGNS DONE. NO C/O PAIN OR DISTRESS. BED LOW. CALL LIGHT WITHIN REACH. WILL CONTINUE TO MONITOR.
[2020-03-02 20:00] VITALS: BP 104/56
[2020-03-03 00:20] VITALS: BP 146/50
--- NOTE | 2020-03-03 03:06 | NUR ---
I have reviewed this patient and I concur with the Shift Assessment completed by the Licensed Practical Nurse today this shift.
[2020-03-03 05:22] VITALS: BP 155/65
--- NOTE | 2020-03-03 07:20 | NUR ---
PT RESTING IN BED WITH EYES OPEN CALL LIGHT IN REACH WILL MONITER
[2020-03-03 12:24] VITALS: BP 145/82
[2020-03-03 12:39] VITALS: BP 142/80
--- NOTE | 2020-03-03 17:31 | NUR ---
PT RESTING IN BED WITH EYES OPEN CALL LIGHT IN REACH WILL MONITER
[2020-03-03 18:18] VITALS: BP 138/68
[2020-03-03 19:50] VITALS: BP 124/55
--- NOTE | 2020-03-03 20:00 | NUR ---
PATIENT RECEIVED SITTING UP IN BED. ASSESSMENT & VITAL SIGNS DONE. NO C/O PAIN OR DISTRESS. BED LOW. CALL LIGHT WITHIN REACH. WILL CONTINUE TO MONITOR.
[2020-03-04 00:10] VITALS: BP 136/58
--- NOTE | 2020-03-04 03:31 | NUR ---
I have reviewed this patient and I concur with the Shift Assessment completed by the Licensed Practical Nurse today this shift.
--- NOTE | 2020-03-04 03:57 | NUR ---
PATIENT USED CALL LIGHT FOR ASSIST. PATIENT MINIMAL ASSIST IN & OUT OF WHEELCHAIR. PATIENT HAD INCONTINENCE IN BED. CONTINENT IN COMMODE. RETURNED TO LOW BED. CALL LIGHT WITHIN REACH. WILL CONTINUE TO MONITOR.
--- NOTE | 2020-03-04 04:05 | NUR ---
PATIENT EYES CLOSED. RESPIRATIONS 18 & EVEN. BEDSIDE TABLE & CALL LIGHT WITHIN REACH. WILL CONTINUE TO MONITOR.
[2020-03-04 06:23] VITALS: BP 144/54
[2020-03-04 07:08] LABS: BASOPHILS 0.4 % (0-2); EOSINOPHILS 1.9 % (0-7); HEMATOCRIT 31.9 % (36.0-48.0); HEMOGLOBIN 9.6 g/dL (12-16); IMMATURE GRANULOCYTES 0.3 % (0-5); LYMPHOCYTES 46.2 % (15-50); MCH 29.9 pg (26.0-34.0); MCHC 30.1 g/dL (31.0-37.0); MCV 99.4 fL (80.0-100.0); MEAN PLATELET VOLUME 10.5 fL (7.4-10.4); NEUTROPHILS 42.2 % (40-80); PLATELET COUNT 205 10x3/uL (130-400); RBC 3.21 10x6/uL (4.00-5.40); RDW 16.5 % (11.5-14.5)
[2020-03-04 07:30] LABS: ANION GAP 15.3 mmol/L (8-16); CALCIUM 8.8 mg/dL (8.5-10.1); CARBON DIOXIDE 25.2 mmol/L (21.0-32.0); CREATININE - SERUM 9.8 mg/dL (0.6-1.3); POTASSIUM - SERUM 4.5 mmol/L (3.5-5.1)
--- NOTE | 2020-03-04 08:09 | NUR ---
PATIENT IS ALERT/ORIENT. CALL LIGHT WITHIN REACH. VOICES NO NEEDS AT THIS TIME. DR DOOLEY INTO SEE PATIENT. NEW ORDERS RECEIVED
--- NOTE | 2020-03-04 10:18 | NUR ---
PATIENT IN REHAB ROOM. WORKING WITH PHYSICAL THERAPIST. DENIES ANY PAIN/DISC
--- NOTE | 2020-03-04 10:35 | NUR ---
Nutrition Follow-up: ESRD on HD- MWF Diet: Renal ADA Soft Mech with chopped meats- thin liquids + Nepro TID PO intake: 100% x last 3 meals Last BM: 03/03/20. Wt: 194# (03/01/20); Admit Wt: 190# (02/15/20) Meds noted: k-dur, januvia Labs noted: Na 134(L), BUN 46(H), Cr 9.8(H), GFR 4(L) Recomment continue current diet and oral nutrition supplements. RD following.
[2020-03-04 12:05] VITALS: BP 164/62
--- NOTE | 2020-03-04 14:10 | NUR ---
CANCELING AND CUTTING CONTROL CLERK IN PATIENTS ROOM DOING US BILATERAL VEIN MAPPING
--- NOTE | 2020-03-04 14:20 | NUR ---
IN ROOM. VISITING WITH PATIENT.
--- NOTE | 2020-03-04 16:20 | NUR ---
PATIENT TAKEN DOWN TO DIALYSIS CLINIC FOR TREATMENT
--- NOTE | 2020-03-04 19:36 | NUR ---
PT IN BED, NO NEEDS NOTED, SAFETY PRECAUTIONS IN PLACE,RESPIRATIONS EVEN/UNLABORED, FLUIDS/CALL LIGHT WITHIN REACH
[2020-03-05 01:22] VITALS: BP 154/55
[2020-03-05 06:02] VITALS: BP 172/62
--- NOTE | 2020-03-05 08:23 | NUR ---
SHE IS ALERT, TALKING. PEOPLE TO GET HER TO THE BATHROOM. WALKING BOOT IS ON. THE CALL LIGHT IS WITHIN REACH.
[2020-03-05 11:55] VITALS: BP 152/64
[2020-03-05 17:08] VITALS: BP 149/47
--- NOTE | 2020-03-05 19:37 | NUR ---
PT IN BED, NO IMMEDIATE NEEDS NOTED, RESPIRATIONS EVEN/UNLABORED, SAFETY PRECAUTIONS IN PLACE, FLUIDS/CALL LIGHT WITHIN REACH
[2020-03-06 00:13] VITALS: BP 151/64
--- NOTE | 2020-03-06 02:22 | NUR ---
PT ASLEEP, AROUSES EASILY TO VOICE, NO IMMEDIATE NEEDS NOTED, RESPIRATIONS EVEN/UNLABORED, PT SAFETY PRECAUTIONS IN PLACE, FLUIDS/CALL LIGHT WITHIN REACH
[2020-03-06 06:02] VITALS: BP 173/68
--- NOTE | 2020-03-06 07:55 | NUR ---
PT RESTING IN BED WITH EYES OPEN CALL LIGHT IN REACH WILL MONITER
--- NOTE | 2020-03-06 10:25 | NUR ---
I have reviewed this patient and I concur with the Shift Assessment completed by the Licensed Practical Nurse today this shift.
[2020-03-06 12:47] VITALS: BP 152/83
--- NOTE | 2020-03-06 14:52 | NUR ---
CARE TEAM MEETING: PATIENT IS PROGRESSING IN THERAPY HER. TENATIVE DC DATE IS 03/12/10. WILL CONTINUE TO FOLLOW WITH PATIENT AND WILL ASSIST WITH DC NEEDS.
--- NOTE | 2020-03-06 14:59 | NUR ---
PT RESTING IN BED WITH EYES OPEN CALL LIGHT IN REACH WILL MONITER
[2020-03-06 20:45] VITALS: BP 170/60
--- NOTE | 2020-03-06 23:58 | NUR ---
PT ASLEEP AROUSES EASILY TO VOICE, RESPIRATION EVEN/UNLABORED, NO NEEDS NOTED, PT SAFETY PRECAUTIONS IN PLACE, FLUIDS/CALL LIGHT WITHIN REACH
[2020-03-07 00:03] VITALS: BP 178/59
--- NOTE | 2020-03-07 00:18 | NUR ---
PT HAD A BM SOFT MUSHY LIGHT BROWN FOR THE 2ND TIME THIS SHIFT
[2020-03-07 06:21] VITALS: BP 161/48
--- NOTE | 2020-03-07 08:00 | NUR ---
PT RESTING IN BED WITH EYES OPEN CALL LIGHT IN REACH WILL MONITER
[2020-03-07 12:14] VITALS: BP 138/59
--- NOTE | 2020-03-07 17:55 | NUR ---
PT RESTING IN BED WITH EYES OPEN CALL LIGHT IN REACH WILL MONITER
[2020-03-07 18:13] VITALS: BP 160/65
--- NOTE | 2020-03-07 19:20 | NUR ---
PT IN BED LAYING QUIETLY, RESPIRATIONS EVEN/UNLABORED, NO IMMEDIATE NEEDS NOTED, FLUIDS/CALL LIGHT WITHIN REACH
[2020-03-07 19:34] VITALS: BP 160/65
[2020-03-08 00:42] VITALS: BP 150/58
--- NOTE | 2020-03-08 01:24 | NUR ---
PT IN BED ASLEEP, AROUSES EASILY TO VOICE, RESPIRATIONS EVEN/UNLABORED, NO IMMEDIATE NEEDS NOTED, FLUIDS/CALL LIGHT WITHIN REACH
[2020-03-08 06:21] VITALS: BP 119/60
[2020-03-08 08:00] LABS: ANION GAP 15.2 mmol/L (8-16); CALCIUM 9.2 mg/dL (8.5-10.1); CARBON DIOXIDE 25.7 mmol/L (21.0-32.0); CREATININE - SERUM 7.7 mg/dL (0.6-1.3); POTASSIUM - SERUM 3.9 mmol/L (3.5-5.1)
[2020-03-08 08:25] LABS: BASOPHILS 0.3 % (0-2); EOSINOPHILS 1.8 % (0-7); HEMATOCRIT 31.4 % (36.0-48.0); HEMOGLOBIN 9.9 g/dL (12-16); IMMATURE GRANULOCYTES 0.2 % (0-5); LYMPHOCYTES 40.7 % (15-50); MCH 31.2 pg (26.0-34.0); MCHC 31.5 g/dL (31.0-37.0); MCV 99.1 fL (80.0-100.0); MEAN PLATELET VOLUME 11.2 fL (7.4-10.4); PLATELET COUNT 196 10x3/uL (130-400); RBC 3.17 10x6/uL (4.00-5.40); RDW 16.2 % (11.5-14.5); WBC 10.1 10x3/uL (4.8-10.8)
--- NOTE | 2020-03-08 10:49 | NUR ---
NUTRITION FOLLOW UP: COMMENTS: Patient out of room with PT during visit. Patient eating well for the last 9 meals with all meals >/= 75% eaten. Patient on HD MWF. DIET: Renal ADA- Mechanical Soft w/ Chopped Meats SUPPLEMENT: Nepro with meals PO INTAKE: 91% avg for last 9 meals WEIGHT: 03/01- 194 lbs, 03/08- 196 lbs (wt gain of 2 lbs) BM: x 4 on 03/07 SIG LABS: Na-133(L), Cl-96(L), BUN- 41(H), Cr-7.7(H) SIG MEDS: KCl, Januvia, Lipitor, Protonix, Synthroid RECOMMENDATIONS Continue Renal ADA diet Continue Nepro TID
[2020-03-08 11:30] VITALS: BP 157/56
--- NOTE | 2020-03-08 14:29 | NUR ---
REFERRAL WAS FAXED TO THE [facility] AND THEY CAN'T ACCEPT ANOTHER HD PATIENT. A REFERRAL HAS BEEN FAXED TO [facility] FOR POSIBBLE ADMISSION. WILL CONTINUE TO FOLLOW WITH PATIENT.
--- NOTE | 2020-03-08 15:05 | NUR ---
GONE TO DIALYSIS, THEY SAID THE PHONE IS BUSY. ALL THE PHONES ARE ON THE HOOK.
[2020-03-08 17:59] VITALS: BP 153/69
--- NOTE | 2020-03-08 18:03 | NUR ---
SHE IS BACK FROM DIALYSIS. THE CALL LIGHT IS WITHIN REACH.
[2020-03-08 19:56] VITALS: BP 153/66
--- NOTE | 2020-03-08 20:00 | NUR ---
PATIENT RECEIVED LAYIONG IN BED. ASSESSMENT & VITAL SIGNS DONE. C/O BEING COLD. WARM BLANKET LAID OVER PATIENT BODY. SHEET & BLANKET OVER. PATIENT STATED "THIS FEELS NICE & WARM." BED LOW. CALL LIGHT WITHIN REACH. WILL CONTINUE TO MONITOR.
--- NOTE | 2020-03-09 00:07 | NUR ---
I have reviewed this patient and I concur with the Shift Assessment completed by the Licensed Practical Nurse today this shift.
[2020-03-09 00:35] VITALS: BP 169/63
--- NOTE | 2020-03-09 00:38 | NUR ---
PATIENT C/O PADS UNDER HER. OLD PADS OUT. NEW PADS UNDER PATIENT BUTTOCKS. VITAL SIGNS DONE. NO C/O PAIN OR DISTRESS. BED LOW. CALL LIGHT WITHIN REACH. WILL CONTINUE TO MONITOR.
--- NOTE | 2020-03-09 03:43 | NUR ---
PATIENT EYES CLOSED. RESPIRATIONS 18 & EVEN. BED LOW. CALL LIGHT WITHIN REACH. WILL CONTINUE TO MONITOR.
--- NOTE | 2020-03-09 04:11 | NUR ---
PATIENT USED CALL LIGHT FOR ASSIST. BED BUTLER PLACED UNDER BUTTOCKS. VOID ONLY. PERIAREA & BUTTOCKS CLEANED. BUTT PASTE APPLIED. BRIEF PULLED UP. COVERS ON. CALL LIGHT WITHIN REACH. WILL CONTINUE TO MONITOR.
[2020-03-09 05:56] VITALS: BP 169/71
--- NOTE | 2020-03-09 06:11 | NUR ---
PATIENT REFUSED BED BATH X 3. BED LOW. CALL LIGHT WITHIN REACH. WILL CONTINUE TO MONITOR.
--- NOTE | 2020-03-09 09:37 | NUR ---
SHE IS ALERT, TALKING, TOOK HER MEDICATIONS WITHOUT ANY PROBLEMS. SHE CAN MOVE HER RIGHT ARM SOME. THE CALL LIGHT IS WITHIN REACH.
[2020-03-09 12:00] VITALS: BP 168/70
[2020-03-09 17:38] VITALS: BP 153/59
[2020-03-09 19:51] VITALS: BP 174/69
--- NOTE | 2020-03-09 19:59 | NUR ---
PATIENT RECIEVED LAYING IN BED. ASSESSMENT & VITAL SIGNS DONE. NO C/O PAIN OR DISTRESS. BED LOW. CALL LIGHT WITHIN REACH. WILL CONTINUE TO MONITOR.
--- NOTE | 2020-03-09 23:33 | NUR ---
PATIENT USED CALL LIGHT FOR ASSIST. PATIENT TURNED SELF TO LEFT SIDE & BED BUTLER PLACED BENEATH BUTTOCKS. VOID ONLY. PERIAREA & BUTTOCKS CLEANED. BUTT PASTE APPLIED. PATIENT COVERED UP. BED LOW. CALL LIGHT WITHIN REACH. WILL CONTINUE TO MONITOR.
[2020-03-10 00:39] VITALS: BP 120/66
--- NOTE | 2020-03-10 00:40 | NUR ---
PATIENT VITAL SIGNS TAKEN PER ORDER. PATIENT TURNED SELF TO LEFT SIDE & BEDPAN PLACED UNDER BUTTOCKS. VOID ONLY. PATIENT PERIAREA & BUTTOCKS CLEANED. BUTT PASTE APPLIED TO PERIAREA & BUTTOCKS. PATIENT COVERED UP. BED LOW. CALL LIGHT WITHIN REACH. WILL CONTINUE TO MONITOR.
--- NOTE | 2020-03-10 04:53 | NUR ---
PATIENT USED CALL LIGHT FOR ASSIST. PATIENT PLACED ON BED BUTLER. VOID ONLY. PERIAREA & BUTTOCKS CLEANED. NEW PAD PLACED UNDER BUTTOCKS. BED LOW. CALL LIGHT WITHIN REACH. WILL CONTINUE TO MONITOR.
[2020-03-10 05:42] VITALS: BP 150/74
[2020-03-10 07:33] VITALS: BP 147/72
--- NOTE | 2020-03-10 08:23 | NUR ---
THIS NURSE ASSISSTED THE PATIENT TO THE BATHROOM VIA WHEELCHAIR. PT HAD BM. PLACED BREAKFAST TRAY ON THE BEDSIDE TABLE. VITALS STABLE
[2020-03-10 11:38] VITALS: BP 135/72
[2020-03-10 19:50] VITALS: BP 123/64
--- NOTE | 2020-03-10 19:50 | NUR ---
PATIENT RECEIVED LAYING IN BED. ASSESSMENT & VITAL SIGNS DONE. PATIENT TURNED & BED BUTLER PLACED UNDER BUTTOCKS. VOID ONLY. PERIAREA & BUTTOCKS CLEANED. BUTT PASTE APPLIED. BED LOW. CALL LIGHT WITHIN REACH. CLEVE CONTINUE TO MONITOR.
--- NOTE | 2020-03-10 20:15 | NUR ---
PATIENT USED CALL LIGHT FOR ASSIST. PATIENT PLACED ON BED BUTLER. VOID ONLY. PERIAREA & BUTTOCKS CLEANED. BUTT PASTE APPLIED. BED LOW. CALL LIGHT WITHIN REACH. WILL CONTINUE TO MONITOR.
--- NOTE | 2020-03-10 20:35 | NUR ---
PATIENT USED CALL LIGHT FOR ASSIST. PATIENT WANTED A SNACK. PATIENT GIVEN SMALL ICE CREAM. PATIENT ATE 100% OF IT. BED LOW. CALL LIGHT WITHIN REACH. WILL CONTINUE TO MONITOR.
[2020-03-11 00:55] VITALS: BP 167/67
--- NOTE | 2020-03-11 01:20 | NUR ---
PATIENT USED CALL LIGHT FOR ASSIST. BED BUTLER PLACED UNDER BUTTOCKS. VOID ONLY. PATIENT PERIAREA & BUTTOCKS CLEANED. BUTT PASTE APPLIED. BED LOW. CALL LIGHT WITHIN REACH. WILL CONTINUE TO MONITOR.
--- NOTE | 2020-03-11 03:45 | NUR ---
PATIENT BED BATH GIVEN. BUTT PASTE ON BUTTOCKS & PERIAREA. NEW LINENS ON BED. GOWN CHANGED. HAIR WASHED. WARM BLANKET ON PATIENT. CALL LIGHT WITHIN REACH. WILL CONTINUE TO MONITOR.
--- NOTE | 2020-03-11 04:15 | NUR ---
PATIENT USED CALL LIGHT FOR ASSIST. PATIENT TURNED TO LEFT SIDE, BED BUTLER PLACED UNDER BUTTOCKS. VOID ONLY. BED LOW. CALL LIGHT WITHIN REACH. WILL CONTINUE TO MONITOR.
[2020-03-11 06:08] VITALS: BP 149/64
[2020-03-11 06:29] LABS: BASOPHILS 0.3 % (0-2); EOSINOPHILS 1.9 % (0-7); HEMATOCRIT 32.2 % (36.0-48.0); IMMATURE GRANULOCYTES 0.2 % (0-5); LYMPHOCYTES 39.4 % (15-50); MCH 30.9 pg (26.0-34.0); MCHC 31.1 g/dL (31.0-37.0); MCV 99.4 fL (80.0-100.0); MONOCYTES 10.5 % (2-11); NEUTROPHILS 47.7 % (40-80); PLATELET COUNT 209 10x3/uL (130-400); RBC 3.24 10x6/uL (4.00-5.40); WBC 9.5 10x3/uL (4.8-10.8)
[2020-03-11 06:34] LABS: ANION GAP 17.1 mmol/L (8-16); CALCIUM 8.9 mg/dL (8.5-10.1); CARBON DIOXIDE 23.1 mmol/L (21.0-32.0); CREATININE - SERUM 9.6 mg/dL (0.6-1.3); POTASSIUM - SERUM 4.2 mmol/L (3.5-5.1)
[2020-03-11] MEDS ORDERED: TOPROL XL25 MG PO (08:23)
[2020-03-11] MEDS ORDERED: NORVASC10 MG PO (08:23)
[2020-03-11] MEDS ORDERED: COZAAR25 MG PO (08:23)
--- NOTE | 2020-03-11 16:10 | NUR ---
PATIENT HAS BEEN ACCPETED TO [facility] AND WILL DC THERE 03/12/20. WILL CONTINUE TO FOLLOW WITH PATIENT.
--- NOTE | 2020-03-11 20:00 | NUR ---
BACK FROM DIALYSIS AND RESTING IN BED. RESPIRAITONS UNLABORED. LEFT CHEST MAHURKAR IN PLACE. ORIENTED X 4. NO ACUTE DISTRESS NOTED. CALL LIGHT IN REACH.
[2020-03-12 00:09] VITALS: BP 138/58
--- NOTE | 2020-03-12 02:41 | NUR ---
SLEEPING WITH RESPIRATIONS UNLABORED. NO DISTRESS NOTED.
--- NOTE | 2020-03-12 05:01 | NUR ---
QUIET HOURS. NO ACUTE CHANGES IN CONDITION THIS SHIFT. RESTING IN BED WITH NO DISTRESS NOTED.
[2020-03-12 05:53] VITALS: BP 140/54
--- NOTE | 2020-03-12 07:43 | NUR ---
PT RESTING IN BED WITH EYES OPEN CALL LIGHT IN REACH WILL MONITER
--- NOTE | 2020-03-12 09:59 | NUR ---
PATIENT DISCHARGING TO [facility] VIA FACILITY VAN. PATIENT WILL CONTINUE SAME HD DAYS AT [facility] ON - @ 6:20AM. NO HOME HEALTH OR DME NEEDED AT THIS TIME. FACILITY WILL MAKE AN APPOITMENT WITH HOANG CRENSHAW APN AT TIME OF DISCHARGE FROM THE FACILITY.ADRIAN SIGNED, IMM SERVED AND EXPLAINED , ONE GIVEN TO PATIENT AND ONE FILED IN CHART DISCHARGE INSTRUCTIONS FAXED TO PCP, SNF AND REVIEWED WITH PATIENT PER ALIYAH DURAN.
--- NOTE | 2020-03-12 11:51 | NUR ---
RECEIVED CALL FROM [facility] AND THEY HAVE A COVID POSTIVE PATIENT AND AT THIS TIME UNABLE TO ACCEPT PATIENT TODAY. NEW REFERRAL FAXED TO [facility].
--- NOTE | 2020-03-12 15:18 | NUR ---
PATIENT HAS BEEN ACCEPTED TO [facility] AND WILL DISCHARGE THERE TODAY
--- NOTE | 2020-03-12 17:30 | NUR ---
PT DISCHARGED TO [facility] WILL [facility] REPORT CALLED PT [facility]
--- NOTE | 2020-03-12 18:16 | NUR ---
PT RESTING IN BED WITH EYES OPEN CALL LIGHT IN REACH NO PROBLEMS WILL MONITER
== END 2020-03-12 19:08 | DRG 56 ==
LOC: D.REHAB 20:41
PROVIDERS: Internal Medicine Nephrology; ADMIT Emergency Medicine; ATTEND Emergency Medicine
DX: I69.391 Dysphagia following cerebral infarction (principal); N18.6 End stage renal disease; R53.2 Functional quadriplegia; I69.351 Hemiplegia and hemiparesis following cerebral infarction affecting right dominant side; I12.0 Hypertensive chronic kidney disease with stage 5 chronic kidney disease or end stage renal disease; I69.322 Dysarthria following cerebral infarction; R13.12 Dysphagia, oropharyngeal phase; D64.9 Anemia, unspecified; Z99.2 Dependence on renal dialysis; F03.90 Unspecified dementia, unspecified severity, without behavioral disturbance, psychotic disturbance, mood disturbance, and anxiety; Z87.891 Personal history of nicotine dependence